=== PATIENT | female | born 1975 | race Caucasian/White ===

== ENCOUNTER 2016-10-10 09:34 | Inpatient (IN) | payer OTHER ==
[2016-10-10] VITALS (9 sets, daily range): BP systolic 108–125; BP diastolic 69–82; PULSE 67–91; TEMP 36.3–37; O2SAT 92–97; Ht 165.1 cm; Wt 91.8 kg
[~2016-10-10] VITALS: Ht 165.1 cm; Wt 91.8 kg
[~2016-10-10 09:34] MED LIST: ALBU1AER9 INH; CLIN300C2 PO; METO1TAB54 PO; RANI150T3 PO
[2016-10-10] MEDS ORDERED: SODIUM CHLORIDE 0.9% 1000ML 1,000 ML IV STA ×2 (09:45)
[2016-10-10] MEDS ORDERED: ONDANSETRON INJ 2 MG/ML 2 ML VIAL IV STA (09:45)
[2016-10-10] MEDS: MoRPHine SULFATE 4 MG/ML 1 ML CARP\\VIAL IV PRN ×6 (10:01→19:53)
[2016-10-10 10:05] LABS: BASO % 0.2 %; BASO ABS # 0.03 K/uL (0-0.2); COMPLETE YES; EOS % 2.2 %; HEMATOCRIT 42.1 % (37-47); IG% 0.2 %; LYMPH % 18.6 %; LYMPH ABS # 2.29 K/uL (1.2-3.4); MEAN CELL VOLUME 84.2 fL (80-100); MEAN CORPUSCULAR HEMOGLOBIN 29.2 pg (25-34); MEAN CORPUSCULAR HGB CONC 34.7 g/dl (32-36); MEAN PLATELET VOLUME 8.9 fL (7.4-10.4); MONO % 4.4 %; NEUT % 74.4 %; PLATELET COUNT 297 K/uL (130-400); WHITE BLOOD COUNT 12.28 K/uL (4.8-10.8)
[2016-10-10 10:07] LABS: URINE APPEARANCE CLOUDY (CLEAR); URINE COLOR DK YELLOW; URINE EPITHELIAL CELL AUTO >30 /lpf (0-5); URINE NITRITE NEG (NEG); URINE SPECIFIC GRAVITY 1.024 (1.000-1.030); UROBILINOGEN NEG (NEG)
[2016-10-10] MEDS ORDERED: TAMS0.4C38 PO (10:07)
[2016-10-10 10:16] LABS: MANUAL MICROSCOPIC REQUIRED? NO; REVIEW REQ? NO; URINE BILIRUBIN NEG (NEG)
[2016-10-10 10:30] LABS: BUN/CREATININE RATIO 17.4 (10-20); CALCIUM 8.8 mg/dl (8.5-10.1); CREATININE 0.63 mg/dl (0.60-1.20); POTASSIUM 3.5 mmol/L (3.5-5.1)
--- NOTE | 2016-10-10 10:43 | DIAGNOSTIC IMAGING REPORT ---
KUB CLINICAL HISTORY: Abdominal pain. Kidney stones. COMPARISON STUDY: None. FINDINGS: A 5 mm calcification inferior to the right sacroiliac joint could reflect a distal right ureteral calculus or phlebolith. A few additional pelvic calcifications could reflect distal ureteral calculi or phleboliths. No renal calculi are present. Bowel gas pattern is normal. IMPRESSION: 1. 5 mm calcification inferior to the right sacroiliac joint which could reflect a distal right ureteral calculus or phlebolith. 2. Several small additional pelvic calcifications. These likely reflect phleboliths although distal ureteral calculi could appear similar. Electronically signed by: Brad Lopez M.D. 10/10/2016 10:41 AM Dictated Date/Time: 10/10/2016 10:39 AM
--- NOTE | 2016-10-10 11:00 | DIAGNOSTIC IMAGING REPORT ---
ULTRASOUND KIDNEYS AND BLADDER CLINICAL HISTORY: Right flank pain. COMPARISON STUDY: KUB dated 10/10/2016. TECHNIQUE: Real-time, grayscale, and color flow sonography of the kidneys and bladder is performed. Images are reviewed in the transverse and longitudinal planes. FINDINGS: Kidneys: The kidneys are normal in size and echotexture. The right kidney measures 11.5 x 5.2 x 5.8 cm and the left kidney measures 12.5 x 5.1 x 4.8 cm. There is mild right-sided hydronephrosis. No hydronephrosis is seen on the left. No shadowing renal calculi are identified. There is no sonographic evidence of contour deforming renal mass lesion. No perinephric fluid is identified. Bladder: The bladder is decompressed and not well assessed. Ureteral jets could not be evaluated. IMPRESSION: 1. There is mild right hydronephrosis. This is likely related to an obstructing ureteral calculus which was suggested by x-ray. 2. There is no left-sided hydronephrosis. 3. The bladder was decompressed and not well evaluated. Electronically signed by: Azeem Cerda M.D. 10/10/2016 10:59 AM Dictated Date/Time: 10/10/2016 10:57 AM
[2016-10-10] MEDS ORDERED: TAMSULOSIN HCL 0.4 MG CAP PO ONE (12:02)
[2016-10-10] MEDS ORDERED: ALBINS INH (12:12)
[2016-10-10] MEDS ORDERED: ATRINS NEB (12:12)
[2016-10-10] MEDS ORDERED: NYST80OI TOP (12:12)
[2016-10-10] MEDS ORDERED: RANITIDINE HCL 150 MG TAB PO PRN (12:15)
[2016-10-10] MEDS ORDERED: METOCLOPRAMIDE HCL 5 MG TAB PO PRN (12:15)
[2016-10-10] MEDS ORDERED: ALBUTEROL HFA 8 GM INHALER INH PRN (12:15)
[2016-10-10] MEDS ORDERED: ONDANSETRON INJ 2 MG/ML 2 ML VIAL IV PRN ×2 (12:15→16:15)
[2016-10-10] MEDS ORDERED: ACETAMINOPHEN 325 MG TAB PO PRN (12:15)
[2016-10-10] MEDS ORDERED: ALBUTEROL 0.083% NEBU SOLN 3 ML VIAL INH PRN (12:15)
[2016-10-10] MEDS ORDERED: IPRATROPIUM BROMIDE NEB SOLN 0.02% 2.5 ML VIAL INH PRN (12:15)
[2016-10-10] MEDS ORDERED: TAMSULOSIN HCL 0.4 MG CAP ONE (12:32)
[2016-10-10] MEDS: SODIUM CHLORIDE 0.9% 1000ML 1,000 ML IV SCH ×2 (13:08→21:02)
--- NOTE | 2016-10-10 13:23 | EMERGENCY ROOM VISIT NOTE ---
History Report prepared by Donnie: Radha Dickens Under the Supervision of: Dr. Keshav Chan D.O. First contact with patient: 09:41 Chief Complaint: KIDNEY STONE Stated Complaint: KIDNEY STONES History of Present Illness The patient is a 41 year old female who presents to the Emergency Room with complaints of an acute exacerbation of pain to her right flank this morning. Currently, she rates her discomfort as a 10/10, which was not relieved after taking ibuprofen prior to arrival. Patient states that she recently visited [facility] on September 13 as she was having similar pain to her right flank and was diagnosed with two 3 mm stones in her right ureter via CT scan. Patient was placed on Flomax and was given a prescription for pain medication at that time. Patient was told that the stones should pass on their own and scheduled a follow up appointment with urology on November 21. Since returning home, the patient has had intermittent exacerbations of pain to right right flank which has been controlled with pain medication, however, she has not yet been able to pass the stones. Additionally, as her pain became worse today and was not relieved after taking medication, she came to the ED for further evaluation. Since the exacerbation of pain this morning, patient has not been able to find a comfortable position secondary to her discomfort. She has also felt nauseous but she has not yet vomited. Patient states that she has noticed intermittent movements of hematuria, but she denies dysuria or increased frequency of urination. She denies fevers, chills, headache, chest pain, shortness of breath , abdominal pain, diarrhea, vaginal discharge or swelling to her extremities. Patient has a history of hysterectomy 16 years ago. She is currently a smoker and drinks alcohol on occasion. Source of History: patient Onset: this morning Position: back (right flank) Symptom Intensity: 10/10 Timing: other (exacerbation) Modifying Factors (Relieving): other (No relief with ibuprofen) Associated Symptoms: + nausea, + urinary symptoms (intermittent hematuria), No SOB, No abdominal pain, No chest pain, No chills, No diarrhea, No fevers, No headache, No vomiting Review of Systems See HPI for pertinent positives & negatives. A total of 10 systems reviewed and were otherwise negative. Past Medical & Surgical Medical Problems: (1) Anxiety (2) Asthma, mild persistent (3) Depression (4) Fibromyalgia (5) GERD (gastroesophageal reflux disease) Surgical Problems: (1) H/O hand surgery (2) History of hysterectomy (3) History of tonsillectomy (4) History of tubal ligation Family History Diabetes mellitus FH: cancer FH: lung disease Hypertension Social History Smoking Status: Current Every Day Smoker Alcohol Use: occasionally Marital Status: in relationship Housing Status: lives with significant other Occupation Status: employed Current/Historical Medications Scheduled Tamsulosin Hcl (Flomax), 1 CAP PO HS Scheduled PRN Albuterol (Proair Hfa), 2 PUFFS INH Q4H PRN for Rescue/Asthma Symptoms Albuterol Sulf (Albuterol Sulfate), 1 VIAL INH QID PRN for SOB/Wheezing Ipratropium Basehor (Ipratropium Basehor), 1 VIAL NEB QID PRN for SOB/Wheezing Metoclopramide Hcl (Reglan), 5 MG PO ACHS PRN for Bloating Nystatin (Topical) (Nystatin), 1 APPLN TOP BID PRN for rash under breasts Ranitidine Hcl (Zantac), 150 MG PO BID PRN for Heartburn Allergies Coded Allergies: Acetaminophen (Verified Allergy, Intermediate, "rash all over, 10/10/16) Oxycodone (Verified Allergy, Intermediate, "rash all over, 10/10/16) Prednisone (Verified Allergy, Intermediate, "puffs up", 10/10/16) Fluticasone (Verified Allergy, Mild, swelling and rash, 04/28/16) Povidone Iodine (Verified Allergy, Mild, rash, 04/28/16) Salmeterol (Verified Allergy, Mild, swelling and rash, 04/28/16) Penicillins (Verified Allergy, Unknown, RASH, 10/10/16) Physical Exam Vital Signs Date Time Temp Pulse Resp B/P Pulse Ox O2 Delivery O2 Flow Rate FiO2 10/10/16 10:53 93 20 145/91 96 Room Air 10/10/16 09:36 36.5 98 20 142/80 100 Room Air Physical Exam GENERAL: Patient is awake and alert, very anxious and uncomfortable appearing. She appears to be in moderate pain. EYES: The conjunctivae are clear. The pupils are round and reactive. EARS, NOSE, MOUTH AND THROAT: The nose is without any evidence of any deformity. Mucous membranes are moist tongue is midline NECK: The neck is nontender and supple. RESPIRATORY: Normal respiratory effort is noted there is no evidence of wheezing rhonchi or rales CARDIOVASCULAR: Regular rate and rhythm noted there no murmurs rubs or gallops normal S1 normal S2 GASTROINTESTINAL: The abdomen is mildly distended but soft. Bowel sounds are present in all quadrants. Right upper quadrant tenderness to palpation but no guarding or rigidity. BACK: No midline tenderness appreciated. Right CVA tenderness to percussion. MUSCULOSKELETAL/EXTREMITIES: There is no evidence of gross deformity full range of motion is noted in the hips and shoulders SKIN: There is no obvious evidence of any rash. There are no petechiae, pallor or cyanosis noted. NEUROLOGIC: Patient is awake alert and oriented x3. Medical Decision & Procedures ER Provider Diagnostic Interpretation: US results as stated below per my review and radiologist interpretation. X-ray results as stated below per interpretation by me and the radiologist. ULTRASOUND KIDNEYS AND BLADDER CLINICAL HISTORY: Right flank pain. COMPARISON STUDY: KUB dated 10/10/2016. TECHNIQUE: Real-time, grayscale, and color flow sonography of the kidneys and bladder is performed. Images are reviewed in the transverse and longitudinal planes. FINDINGS: Kidneys: The kidneys are normal in size and echotexture. The right kidney measures 11.5 x 5.2 x 5.8 cm and the left kidney measures 12.5 x 5.1 x 4.8 cm. There is mild right-sided hydronephrosis. No hydronephrosis is seen on the left. No shadowing renal calculi are identified. There is no sonographic evidence of contour deforming renal mass lesion. No perinephric fluid is identified. Bladder: The bladder is decompressed and not well assessed. Ureteral jets could not be evaluated. IMPRESSION: 1. There is mild right hydronephrosis. This is likely related to an obstructing ureteral calculus which was suggested by x-ray. 2. There is no left-sided hydronephrosis. 3. The bladder was decompressed and not well evaluated. Electronically signed by: Azeem Cerda M.D. 10/10/2016 10:59 AM Dictated Date/Time: 10/10/2016 10:57 AM KUB CLINICAL HISTORY: Abdominal pain. Kidney stones. COMPARISON STUDY: None. FINDINGS: A 5 mm calcification inferior to the right sacroiliac joint could reflect a distal right ureteral calculus or phlebolith. A few additional pelvic calcifications could reflect distal ureteral calculi or phleboliths. No renal calculi are present. Bowel gas pattern is normal. IMPRESSION: 1. 5 mm calcification inferior to the right sacroiliac joint which could reflect a distal right ureteral calculus or phlebolith. 2. Several small additional pelvic calcifications. These likely reflect phleboliths although distal ureteral calculi could appear similar. Electronically signed by: Brad Lopez M.D. 10/10/2016 10:41 AM Dictated Date/Time: 10/10/2016 10:39 AM Laboratory Results 10/10/16 10:00 Red Blood Count 5.00, Mean Corpuscular Volume 84.2, Mean Corpuscular Hemoglobin 29.2, Mean Corpuscular Hemoglobin Concent 34.7, Mean Platelet Volume 8.9, Neutrophils (%) (Auto) 74.4, Lymphocytes (%) (Auto) 18.6, Monocytes (%) (Auto) 4.4, Eosinophils (%) (Auto) 2.2, Basophils (%) (Auto) 0.2, Neutrophils # (Auto) 9.12, Lymphocytes # (Auto) 2.29, Monocytes # (Auto) 0.54, Eosinophils # (Auto) 0.27, Basophils # (Auto) 0.03 10/10/16 10:00 Test 10/10/16 09:45 10/10/16 10:00 Urine Color DK YELLOW Urine Appearance CLOUDY (CLEAR) Urine pH 6.0 (4.5-7.5) Urine Specific [place] 1.024 (1.000-1.030) Urine Protein 1+ (NEG) Urine Glucose (UA) NEG (NEG) Urine Ketones 1+ (NEG) Urine Occult Blood 3+ (NEG) Urine Nitrite NEG (NEG) Urine Bilirubin NEG (NEG) Urine Urobilinogen NEG (NEG) Urine Leukocyte Esterase TRACE (NEG) Urine WBC (Auto) 5-10 /hpf (0-5) Urine RBC (Auto) >30 /hpf (0-4) Urine Hyaline Casts (Auto) 5-10 /lpf (0-5) Urine Epithelial Cells (Auto) >30 /lpf (0-5) Urine Bacteria (Auto) 1+ (NEG) White Blood Count 12.28 K/uL (4.8-10.8) Red Blood Count 5.00 M/uL (4.2-5.4) Hemoglobin 14.6 g/dL (12.0-16.0) Hematocrit 42.1 % (37-47) Mean Corpuscular Volume 84.2 fL (80-100) Mean Corpuscular Hemoglobin 29.2 pg (25-34) Mean Corpuscular Hemoglobin Concent 34.7 g/dl (32-36) Platelet Count 297 K/uL (130-400) Mean Platelet Volume 8.9 fL (7.4-10.4) Neutrophils (%) (Auto) 74.4 % Lymphocytes (%) (Auto) 18.6 % Monocytes (%) (Auto) 4.4 % Eosinophils (%) (Auto) 2.2 % Basophils (%) (Auto) 0.2 % Neutrophils # (Auto) 9.12 K/uL (1.4-6.5) Lymphocytes # (Auto) 2.29 K/uL (1.2-3.4) Monocytes # (Auto) 0.54 K/uL (0.11-0.59) Eosinophils # (Auto) 0.27 K/uL (0-0.5) Basophils # (Auto) 0.03 K/uL (0-0.2) RDW Standard Deviation 43.2 fL (36.4-46.3) RDW Coefficient of Variation 14.0 % (11.5-14.5) Immature Granulocyte % (Auto) 0.2 % Immature Granulocyte # (Auto) 0.03 K/uL (0.00-0.02) Anion Gap 11.0 mmol/L (3-11) Est Creatinine Clear Calc Drug Dose 131.6 ml/min Estimated GFR () 129.1 Estimated GFR (Non- 111.4 BUN/Creatinine Ratio 17.4 (10-20) Calcium Level 8.8 mg/dl (8.5-10.1) Total Bilirubin 0.5 mg/dl (0.2-1) Direct Bilirubin 0.1 mg/dl (0-0.2) Aspartate Amino Transf (AST/SGOT) 14 U/L (15-37) Alanine Aminotransferase (ALT/SGPT) 24 U/L (12-78) Alkaline Phosphatase 92 U/L (45-117) Total Protein 7.7 gm/dl (6.4-8.2) Albumin 3.8 gm/dl (3.4-5.0) Lipase 158 U/L (73-393) Laboratory results per my review. Medications Administered Medications (Trade) Dose Ordered Sig/Rui Route Start Time Stop Time Status Last Admin Dose Admin Sodium Chloride 1,000 ml @ 999 mls/hr Q1H1M STAT IV 10/10/16 09:45 10/10/16 10:45 DC 10/10/16 10:01 999 MLS/HR Sodium Chloride (Nss 1000ml) 1,000 ml @ 200 mls/hr Q5H STAT IV 10/10/16 09:45 10/10/16 13:06 DC 10/10/16 09:45 200 MLS/HR Morphine Sulfate (MoRPHine SULFATE INJ) 4 mg Q15M PRN IV 10/10/16 09:45 10/10/16 13:46 DC 10/10/16 12:21 4 MG Ondansetron HCl (Zofran Inj) 4 mg NOW STAT IV 10/10/16 09:45 10/10/16 09:48 DC 10/10/16 09:45 4 MG ED Course 0942: The patient was evaluated in room B8. A complete history and physical examination were performed. 0945: Zofran 4 mg IV, Morphine Sulfate 4 mg IV, NSS 1,000 ml @ 200 mls/hr IV and NSS bolus IV were ordered. 1100: Upon reevaluation, the patient appeared to be resting more comfortably. I updated her on the results of her radiology reports and lab tests. The urologist will be contacted. 1110: I discussed the patient's case with Dr. Dia of urology. She recommended admitting the patient to medicine and then she would evaluate the patient for possible stenting. The hospitalist will be contacted. 1130: After discussion with Fabiana Jacome PA-C, the patient will continue to be evaluated by the [facility] for further management. The patient verbalized her understanding and agreement with this treatment plan. Medical Decision Differential diagnosis: Etiologies such as renal colic, appendicitis, diverticulitis, mesenteric ischemia, aortic pathology, infections, inflammatory bowel disease, PUD, biliary pathology, UTI, as well as others were entertained. Nursing notes reviewed. The patient is a 41-year-old female who presented to the emergency department for an evaluation of flank pain. The patient was recently diagnosed with a kidney stone in the middle of August. The patient returns today because worsening pain. Her history and physical exam appeared to be consistent with renal colic. She was found have signs of hydronephrosis on ultrasound. I discussed her case with the on-call patient's primary urologist. Patient treated with IV fluids IV pain medicine IV antiemetics. On subsequent reevaluation she still had continued pain. This reason I discussed her case with the [facility]-call [facility]. They've agreed to evaluate the patient in the emergency apartment for further management and disposition. Consults Time Called: 1105 Consulting Physician: Dr. Dia - urology Returned Call: [phone] Discussed the patient's case. She recommended admitting the patient to medicine and then she would evaluate the patient for possible stenting. The hospitalist will be contacted. Additional Consults: Time Called: 1115 Consulted Physician: Fabiana Umaña Returned Call: [phone] Additional Comments: Discussed the patient's case. She will continue to be evaluated by the [facility] for further management. Impression Primary Impression: Renal colic Additional Impression: Intractable pain Scribe Attestation The scribe's documentation has been prepared under my direction and personally reviewed by me in its entirety. I confirm that the note above accurately reflects all work, treatment, procedures, and medical decision making performed by me. Departure Information Dispostion Being Evaluated By Hospitalist (Chasidy) Yfn Hong M.D. (PCP) Problem Qualifiers
--- NOTE | 2016-10-10 13:24 | History and Physical ---
History & Physical Date & Time of Service: Oct 10, 2016 at 12:13 Chief Complaint: Kidney Stones Primary Care Physician: Yfn Gonsales M.D. History of Present Illness Source: patient This is a 41 y/o female with PMHx of Asthma and other problems as outlined below who presents to the ED c/o worsening Right flank pain since this morning. Pt reports that one month ago she was seen at [facility] for similar sxs. She was diagnosed with 3mm stone in her R ureter via CT scan. She was discharged home to pass the stone with Flomax and PRN pain medications with urology f/u apt scheduled for Nov 21. Patient reports she has had intermittent R flank pain since she returned home that was relieved with pain medication. This morning she was at work when the pain got acutely worse. She describes the R flank pain as constant 10/10 stabbing pain that radiates to the R groin. She cannot find a comfortable position. Sxs are assoc with hematuria and nausea but no vomiting. Pt denies prior history of kidney stone. Pt denies fever/chills, diaphoresis, chest pain, palpitations, SOB, abd pain, constipation, diarrhea, LE edema ,calf pain, lightheadedness/dizziness. In the ED, BP is slightly elevated. Pt is afebrile with leukocytosis >12k. KUB + 5mm obstructing stone within distal R ureter with mild hydronephrosis on renal US. UA contaminated; will recollect via cath. Pt appears stable and will be admitted for further evaluation and treatment. Past Medical/Surgical History Medical Problems: (1) Anxiety Status: Chronic (2) Asthma, mild persistent Status: Chronic (3) Depression Status: Chronic (4) Fibromyalgia Status: Chronic (5) GERD (gastroesophageal reflux disease) Status: Chronic Surgical Problems: (1) H/O hand surgery Status: Resolved (2) History of hysterectomy Status: Resolved (3) History of tonsillectomy Status: Resolved (4) History of tubal ligation Status: Resolved Family History Diabetes mellitus FH: cancer FH: lung disease Hypertension Social History Smoking Status: Current Every Day Smoker (1 ppd x 15 years) Alcohol Use: occasionally Drug Use: none Marital Status: , in relationship Housing status: lives with family Occupational Status: employed Multi-Drug Resistant Organisms History of MDRO: No Allergies Coded Allergies: Acetaminophen (Verified Allergy, Intermediate, "rash all over, 10/10/16) Oxycodone (Verified Allergy, Intermediate, "rash all over, 10/10/16) Prednisone (Verified Allergy, Intermediate, "puffs up", 10/10/16) Fluticasone (Verified Allergy, Mild, swelling and rash, 04/28/16) Povidone Iodine (Verified Allergy, Mild, rash, 04/28/16) Salmeterol (Verified Allergy, Mild, swelling and rash, 04/28/16) Uncoded Allergies: PENICILLIN (Allergy, Mild, rash, 04/28/16) Home Medications Scheduled Tamsulosin Hcl (Flomax), 1 CAP PO HS Scheduled PRN Albuterol (Proair Hfa), 2 PUFFS INH Q4H PRN for Rescue/Asthma Symptoms Albuterol Sulf (Albuterol Sulfate), 1 VIAL INH QID PRN for SOB/Wheezing Ipratropium Corder (Ipratropium Corder), 1 VIAL NEB QID PRN for SOB/Wheezing Metoclopramide Hcl (Reglan), 5 MG PO ACHS PRN for Bloating Nystatin (Topical) (Nystatin), 1 APPLN TOP BID PRN for rash under breasts Ranitidine Hcl (Zantac), 150 MG PO BID PRN for Heartburn Review of Systems Constitutional: No chills, No fatigue, No fever, No sweats, No weakness Eyes: No worsening of vision ENT: No hearing loss Respiratory: No cough, No shortness of breath Cardiovascular: No chest pain, No claudication, No edema, No palpitations Abdomen: + nausea, + problem reported (R flank pain), No GI bleeding, No constipation, No diarrhea, No pain, No vomiting Genitourinary - Female: + hematuria, No dysuria Neurologic: No weakness Psychiatric: No depression symptoms Endocrine: No fatigue Integumentary: No new/changing skin lesions Physical Exam Vital Signs Date Time Temp Pulse Resp B/P Pulse Ox O2 Delivery O2 Flow Rate FiO2 10/10/16 10:53 93 20 145/91 96 Room Air 10/10/16 09:36 36.5 98 20 142/80 100 Room Air General Appearance: WD/WN, no apparent distress, + pertinent finding (Pt is sitting up in bed iwth significant other at bedside ) Head: normocephalic, atraumatic Eyes: normal inspection ENT: hearing grossly normal Neck: supple Respiratory/Chest: chest non-tender, lungs clear, normal breath sounds, no respiratory distress Cardiovascular: regular rate, rhythm, no edema, no murmur Abdomen/GI: normal bowel sounds, non tender, soft Back: + right CVA tenderness Extremities/Musculoskelatal: normal inspection, no calf tenderness, no pedal edema Neurologic/Psych: alert, normal mood/affect, oriented x 3 Skin: normal color, warm/dry Diagnostics Laboratory Results Results Past 24 Hours Test 10/10/16 09:45 10/10/16 10:00 Range/Units Urine Color DK YELLOW Urine Appearance CLOUDY CLEAR Urine pH 6.0 4.5-7.5 Urine Specific [place] 1.024 1.000-1.030 Urine Protein 1+ NEG Urine Glucose (UA) NEG NEG Urine Ketones 1+ NEG Urine Occult Blood 3+ NEG Urine Nitrite NEG NEG Urine Bilirubin NEG NEG Urine Urobilinogen NEG NEG Urine Leukocyte Esterase TRACE NEG Urine WBC (Auto) 5-10 0-5 /hpf Urine RBC (Auto) >30 0-4 /hpf Urine Hyaline Casts (Auto) 5-10 0-5 /lpf Urine Epithelial Cells (Auto) >30 0-5 /lpf Urine Bacteria (Auto) 1+ NEG White Blood Count 12.28 4.8-10.8 K/uL Red Blood Count 5.00 4.2-5.4 M/uL Hemoglobin 14.6 12.0-16.0 g/dL Hematocrit 42.1 37-47 % Mean Corpuscular Volume 84.2 80-100 fL Mean Corpuscular Hemoglobin 29.2 25-34 pg Mean Corpuscular Hemoglobin Concent 34.7 32-36 g/dl Platelet Count 297 130-400 K/uL Mean Platelet Volume 8.9 7.4-10.4 fL Neutrophils (%) (Auto) 74.4 % Lymphocytes (%) (Auto) 18.6 % Monocytes (%) (Auto) 4.4 % Eosinophils (%) (Auto) 2.2 % Basophils (%) (Auto) 0.2 % Neutrophils # (Auto) 9.12 1.4-6.5 K/uL Lymphocytes # (Auto) 2.29 1.2-3.4 K/uL Monocytes # (Auto) 0.54 0.11-0.59 K/uL Eosinophils # (Auto) 0.27 0-0.5 K/uL Basophils # (Auto) 0.03 0-0.2 K/uL RDW Standard Deviation 43.2 36.4-46.3 fL RDW Coefficient of Variation 14.0 11.5-14.5 % Immature Granulocyte % (Auto) 0.2 % Immature Granulocyte # (Auto) 0.03 0.00-0.02 K/uL Sodium Level 137 136-145 mmol/L Potassium Level 3.5 3.5-5.1 mmol/L Chloride Level 104 98-107 mmol/L Carbon Dioxide Level 22 21-32 mmol/L Anion Gap 11.0 3-11 mmol/L Blood Urea Nitrogen 11 7-18 mg/dl Creatinine 0.63 0.60-1.20 mg/dl Est Creatinine Clear Calc Drug Dose 131.6 ml/min Estimated GFR () 129.1 Estimated GFR (Non- 111.4 BUN/Creatinine Ratio 17.4 10-20 Random Glucose 103 70-99 mg/dl Calcium Level 8.8 8.5-10.1 mg/dl Total Bilirubin 0.5 0.2-1 mg/dl Direct Bilirubin 0.1 0-0.2 mg/dl Aspartate Amino Transf (AST/SGOT) 14 15-37 U/L Alanine Aminotransferase (ALT/SGPT) 24 12-78 U/L Alkaline Phosphatase 92 45-117 U/L Total Protein 7.7 6.4-8.2 gm/dl Albumin 3.8 3.4-5.0 gm/dl Lipase 158 73-393 U/L Diagnostic Radiology KUB IMPRESSION: 1. 5 mm calcification inferior to the right sacroiliac joint which could reflect a distal right ureteral calculus or phlebolith. 2. Several small additional pelvic calcifications. These likely reflect phleboliths although distal ureteral calculi could appear similar. RENAL US IMPRESSION: 1. There is mild right hydronephrosis. This is likely related to an obstructing ureteral calculus which was suggested by x-ray. 2. There is no left-sided hydronephrosis. 3. The bladder was decompressed and not well evaluated. Impression Assessment and Plan OBSTRUCTING DISTAL R URETERAL CALCULI pt presents with R flank pain assoc with nausea; no prior history of kidney stone -admit to med/surg -pt is afebrile with leukocytosis >12k -KUB + 5mm obstructing stone within distal R ureter with mild hydronephrosis on renal US -initial UA contaminated specimen; cath specimen yet to be collected -start IVF and Flomax -Morphine and Toradol PRN pain -NPO after midnight for possible stent tomorrow -strain urine -may start abx pending results of repeat UA -consult urology, Dr. Dia-possible stent tomorrow -pt does not appear septic -monitor MILD PERSISTENT ASTHMA -no evidence of acute exacerbation -cont home inhalers DEPRESSION/ANXIETY -stable -not currently on any medications GERD -cont Zantac DVT PROPHYLAXIS -Low VTE risk -SCDs and ambulation for now CODE STATUS -FULL CODE status DISPO -Pt seen in collaboration with Dr. Byers. Please see his addendum for further details. Thanks! ATTENDING NOTE Patient seen & examined at bedside. Reviewed the History/Physical and confirmed all the findings in person. Patient has known history of Right sided Renal stone since August 2016 and it has been gradually bothering her more. Symptoms got worst earlier in the day today which ahs brought her to the ED. She is being admitted to Medical Floor. Continue I/V Fluids and Pain management. Urology has bee involved in patient care. Patient is FULL CODE. DVT Prophylaxis with SCDs. Patient will be followed by Dr. Siddiqi. Lauri Byers MD Level of Care Med/Surg Resuscitation Status FULL RESUSCITATION VTE Prophylaxis VTE Risk Assessment Done? Y/N: Yes Risk Level: Low Given or contraindicated: SCD's
[2016-10-10] MEDS ORDERED: PROMETHAZINE HCL INJ 25 MG in SODIUM CHLORIDE 0.9% 50ML 50 ML IV PRN (13:30)
[2016-10-10] MEDS: KETOROLAC TROMETHAMINE 30 MG/ML VIAL IV PRN (14:02)
[2016-10-10] MEDS ORDERED: LIDOCAINE HCL 2% 2 ML VIAL (20MG/ML) ONE (16:00)
[2016-10-10] MEDS ORDERED: ONDANSETRON INJ 2 MG/ML 2 ML VIAL ONE (16:00)
[2016-10-10] MEDS ORDERED: DEXAMETHASONE SOD INJ 4 MG/ML VIAL ONE (16:00)
[2016-10-10] MEDS ORDERED: PROPOFOL IV EMULSION 10 MG/ML 20 ML VIAL IV ONE (16:00)
[2016-10-10] MEDS ORDERED: FENTANYL CITRATE INJ 50 MCG/1 ML 2 ML VIAL ONE (16:01)
[2016-10-10] MEDS ORDERED: MIDAZOLAM HCL 1 MG/ML 2ML VIAL ONE (16:01)
[2016-10-10] MEDS ORDERED: LACTATED RINGER'S 1000ML 1,000 ML IV PRN (16:08)
[2016-10-10] MEDS ORDERED: CEFAZOLIN IV 2,000 MG/60 ML D5W IV ONE (16:12)
[2016-10-10] MEDS ORDERED: FENTANYL CITRATE INJ 50 MCG/1 ML 2 ML VIAL IV PRN (16:15)
--- NOTE | 2016-10-10 16:23 | Urology Consultation ---
History General Date of Service: Oct 10, 2016. Chief Complaint: right renal colic Primary Care Physician: Yfn Gonsales M.D. Pt seen a urologist before?: No History of Present Illness I am asked by Sj Jacome to evaluate and treat patient for right renal colic. She was diagnosed with right stone 2015. She had a pain episode ddec [address] showed the stone in the upj with mild hydro. She had no pain for 2 weeks then this am she had return of severe pain. She had nausea and emesis. Her KUB shows stone now just below SI joint and u/s shows hydro right. Her pain is severe. Imaging Imaging: CT, KUB, Ultrasound Laboratory Results Past 24 Hours Test 10/10/16 09:45 10/10/16 10:00 Range/Units Urine Color DK YELLOW Urine Appearance CLOUDY CLEAR Urine pH 6.0 4.5-7.5 Urine Specific [place] 1.024 1.000-1.030 Urine Protein 1+ NEG Urine Glucose (UA) NEG NEG Urine Ketones 1+ NEG Urine Occult Blood 3+ NEG Urine Nitrite NEG NEG Urine Bilirubin NEG NEG Urine Urobilinogen NEG NEG Urine Leukocyte Esterase TRACE NEG Urine WBC (Auto) 5-10 0-5 /hpf Urine RBC (Auto) >30 0-4 /hpf Urine Hyaline Casts (Auto) 5-10 0-5 /lpf Urine Epithelial Cells (Auto) >30 0-5 /lpf Urine Bacteria (Auto) 1+ NEG White Blood Count 12.28 4.8-10.8 K/uL Red Blood Count 5.00 4.2-5.4 M/uL Hemoglobin 14.6 12.0-16.0 g/dL Hematocrit 42.1 37-47 % Mean Corpuscular Volume 84.2 80-100 fL Mean Corpuscular Hemoglobin 29.2 25-34 pg Mean Corpuscular Hemoglobin Concent 34.7 32-36 g/dl Platelet Count 297 130-400 K/uL Mean Platelet Volume 8.9 7.4-10.4 fL Neutrophils (%) (Auto) 74.4 % Lymphocytes (%) (Auto) 18.6 % Monocytes (%) (Auto) 4.4 % Eosinophils (%) (Auto) 2.2 % Basophils (%) (Auto) 0.2 % Neutrophils # (Auto) 9.12 1.4-6.5 K/uL Lymphocytes # (Auto) 2.29 1.2-3.4 K/uL Monocytes # (Auto) 0.54 0.11-0.59 K/uL Eosinophils # (Auto) 0.27 0-0.5 K/uL Basophils # (Auto) 0.03 0-0.2 K/uL RDW Standard Deviation 43.2 36.4-46.3 fL RDW Coefficient of Variation 14.0 11.5-14.5 % Immature Granulocyte % (Auto) 0.2 % Immature Granulocyte # (Auto) 0.03 0.00-0.02 K/uL Sodium Level 137 136-145 mmol/L Potassium Level 3.5 3.5-5.1 mmol/L Chloride Level 104 98-107 mmol/L Carbon Dioxide Level 22 21-32 mmol/L Anion Gap 11.0 3-11 mmol/L Blood Urea Nitrogen 11 7-18 mg/dl Creatinine 0.63 0.60-1.20 mg/dl Est Creatinine Clear Calc Drug Dose 131.6 ml/min Estimated GFR () 129.1 Estimated GFR (Non- 111.4 BUN/Creatinine Ratio 17.4 10-20 Random Glucose 103 70-99 mg/dl Calcium Level 8.8 8.5-10.1 mg/dl Total Bilirubin 0.5 0.2-1 mg/dl Direct Bilirubin 0.1 0-0.2 mg/dl Aspartate Amino Transf (AST/SGOT) 14 15-37 U/L Alanine Aminotransferase (ALT/SGPT) 24 12-78 U/L Alkaline Phosphatase 92 45-117 U/L Total Protein 7.7 6.4-8.2 gm/dl Albumin 3.8 3.4-5.0 gm/dl Lipase 158 73-393 U/L Labs were reviewed and are within normal limits unless listed below. Labs are available in the chart and at [facility] Problem List Medical Problems: (1) Abnormal ECG Status: Acute (2) Intractable pain Status: Acute (3) Renal colic Status: Acute (4) Right upper quadrant abdominal pain Status: Acute Past History anxiety, fibromyalgia, GERD Past Surgical History: tubal ligation Family History Diabetes mellitus FH: cancer FH: lung disease Hypertension Social History Hx Tobacco Use In Past Year?: No Smokin pack/day Alcohol: socially Marital status: , in relationship (engaged to be ) Housing status: lives with family Occupation status: employed History of MDRO No Allergies Coded Allergies: Acetaminophen (Verified Allergy, Intermediate, "rash all over, 10/10/16) Oxycodone (Verified Allergy, Intermediate, "rash all over, 10/10/16) Prednisone (Verified Allergy, Intermediate, "puffs up", 10/10/16) Fluticasone (Verified Allergy, Mild, swelling and rash, 04/28/16) Povidone Iodine (Verified Allergy, Mild, rash, 04/28/16) Salmeterol (Verified Allergy, Mild, swelling and rash, 04/28/16) Uncoded Allergies: PENICILLIN (Allergy, Mild, rash, 04/28/16) Medications Home Medications: Home Meds and Scripts Medications Dose Route/Sig Max Daily Dose Days Date Category Nystatin (Nystatin (Topical)) 100,000 Unit/Gm Oin 1 Appln TOP BID PRN 5 10/10/16 Reported Albuterol Sulfate (Albuterol Sulf) 2.5 Mg/3 Ml Nebu 1 Vial INH QID PRN 10/10/16 Reported Ipratropium [place] 0.5 Mg/2.5 Ml Nebu 1 Vial NEB QID PRN 30 10/10/16 Reported Flomax (Tamsulosin Hcl) 0.4 Mg Cap 1 Cap PO HS 30 10/10/16 Reported Proair Hfa (Albuterol) Aers 2 Puffs INH Q4H PRN 04/28/16 Reported Zantac (Ranitidine HCl) 150 Mg Tab 150 Mg PO BID PRN 04/28/16 Reported Reglan (Metoclopramide Hcl) 5 Mg Tab 5 Mg PO ACHS PRN 04/28/16 Reported Inpatient Medications: Current Inpatient Medications Medications (Trade) Dose Ordered Sig/Rui Route Start Time Stop Time Status Last Admin Dose Admin Acetaminophen (Tylenol Tab) 650 mg Q4H PRN PO 10/10/16 12:15 11/09/16 12:14 Ondansetron HCl (Zofran Inj) 4 mg Q6H PRN IV 10/10/16 12:15 11/09/16 12:14 Tamsulosin HCl 0.4 mg 0.4 mg QAM PO 10/11/16 09:00 11/10/16 08:59 Sodium Chloride (Nss 1000ml) 1,000 ml @ 125 mls/hr Q8H IV 10/10/16 13:30 11/09/16 12:14 10/10/16 13:08 125 MLS/HR Morphine Sulfate (MoRPHine SULFATE INJ) 4 mg Q3H PRN IV 10/10/16 12:15 10/24/16 12:14 10/10/16 15:46 4 MG Albuterol (Ventolin Hfa Inhaler) 2 puffs Q4H PRN INH 10/10/16 12:15 11/09/16 12:14 Albuterol Sulfate (Ventolin 0.083% 2.5MG/3ML Neb) 2.5 mg QID PRN INH 10/10/16 12:15 11/09/16 12:14 Ipratropium [place] (Atrovent 0.02% 0.5MG/2.5ML Neb) 0.5 mg QID PRN INH 10/10/16 12:15 11/09/16 12:14 Metoclopramide HCl (Reglan Tab) 5 mg ACHS PRN PO 10/10/16 12:15 11/09/16 12:14 Ranitidine HCl (zANTac TAB) 150 mg BID PRN PO 10/10/16 12:15 11/09/16 12:14 Ketorolac Tromethamine 30 mg 30 mg Q6H PRN IV 10/10/16 13:30 10/15/16 13:29 10/10/16 14:02 30 MG Promethazine HCl/ Sodium Chloride (Phenergan Inj/ Nss 50ml) 51 ml @ 204 mls/hr Q6H PRN IV 10/10/16 13:30 11/09/16 13:29 10/10/16 14:14 204 MLS/HR Fentanyl Citrate (Fentanyl Inj) 25 mcg Q5M PRN IV 10/10/16 16:15 10/11/16 16:14 UNV Ondansetron HCl 4 mg 4 mg ONE PRN IV 10/10/16 16:15 UNV Lactated Ringer's (Lr 1000ml) 1,000 ml @ 130 mls/hr Q7H42M PRN IV 10/10/16 16:08 10/11/16 16:07 UNV Review of Systems Review of Systems Constitutional: + frequent headaches, No chills Neurological: No dizzy, No passing out Gastrointestinal: + abdominal pain, + indigestion, + nausea, + vomiting, No constipation Cardiovascular: No chest pain, No palpitations Respiratory: + chronic cough, + shortness of breath Female : + frequent urination, + kidney stones, + painful urination Physical Exam Vital Signs: Vital Signs Past 12 Hours Date Time Temp Pulse Resp B/P Pulse Ox O2 Delivery O2 Flow Rate FiO2 10/10/16 14:49 36.5 67 16 118/74 97 Room Air 10/10/16 12:50 36.4 85 20 125/81 92 Room Air 10/10/16 12:50 36.4 85 20 125/81 92 Room Air 10/10/16 12:23 82 20 125/86 Room Air 10/10/16 12:13 90 20 120/85 97 Room Air 10/10/16 10:53 93 20 145/91 96 Room Air 10/10/16 09:36 36.5 98 20 142/80 100 Room Air Physical Exam: General Appearance: WD/WN, no apparent distress, + obese Eyes: bilateral eyes normal inspection ENT: hearing grossly normal Neck: no adenopathy Respiratory/Chest: no respiratory distress, no accessory muscle use Cardiovascular: regular rate, rhythm, no edema Extremities: non-tender, normal inspection, no pedal edema, no calf tenderness Neurologic/Psychiatric: alert, normal mood/affect, oriented x 3 Skin: normal color, warm/dry, no rash Lymphatic: no adenopathy Assessment & Plan Assessment & Plan right obstructing stone right colic plan right ureteroscopy laser litho basket stone extraction possible stent 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
[2016-10-10] MEDS ORDERED: CEFAZOLIN IV 2,000 MG/60 ML D5W IV SCH (16:30)
[2016-10-10] MEDS ORDERED: BELLADONNA/OPIUM SUPP 60 MG SUPP PR ONE (16:51)
[2016-10-10] MEDS ORDERED: BELLADONNA/OPIUM 60 MG SUPP PR ONE (17:00)
--- NOTE | 2016-10-10 17:08 | [facility] Operative Report ---
Operative Report Operative Date Oct 10, 2016. Pre-Operative Diagnosis right renal colic, obstructing ureteral stone Post-Operative Diagnosis same Procedure(s) Performed cysto right ureteroscopy laser lithotripsy basket stone extraction Surgeon jeyson [employer] Supervisor Surgeon(s) none Estimated Blood Loss 4mL Findings radio-opaque right distal ureteral stone Fluids 600mL Specimens right ureteral stone fragments Drains none Anesthesia LMA Complication(s) None Disposition Recovery Room / PACU Indications severe pain from a distal right ureteral stone with obstruction Description of Procedure Patient was given general lma anesthesia and placed in lithotomy position. Her genitals were prepped and draped in sterile fashion. Time out held with team. I placed a 21 fr rigid cystoscope to bladder. The urethra is unremarkable. The UOs are in normal location. I placed a stiff wire up right ureter but it cant get passed the stone in the distal ureter. I then switched to a road runner and passed wire to kidney. I then exchanged for stiff wire again via a 5 fr open ended catheter. There is brisk hydro drip once wire passed. I passed a dual lumen catheter over the stiff wire to calibrate just the intramural tunnel. I then placed a semirigid angled ureteroscope into the distal ureter. I lasered the stone into small pieces with a 270 micron holmium laser. I used a 2.2 fr tipless basket to remove all the pieces of stone from the ureter. Stone fragments were sent for analysis. The case was short ( under 20 minutes) and the stone was distal and ureter looks un-injured so I elected not to leave a stent There is brisk efflux from uo as I replaced the cystoscope to drain the bladder at end of case. I left bladder empty and concluded case. I placed a belladonna and opium suppository for post-op pain. She transferred to recovery under my escort, in stable condition. Plan: Home tomorrow am Pyridium for dysuria x 3 days flomax daily until pain free oral pain meds as needed ASA 2 clean contaminated case 10 seconds fluoro ancef antibiotic communication professor I attest to the content of the Intraoperative Record and any orders documented therein. Any exceptions are noted below.
[2016-10-10] MEDS ORDERED: PHENYLEPHRINE 100MCG/ML 5ML SYR ONE (17:17)
[2016-10-10] MEDS ORDERED: EpHEDrine SULFATE 50MG/5ML SYR ONE (17:17)
--- NOTE | 2016-10-10 17:24 | DIAGNOSTIC IMAGING REPORT ---
INTRAOPERATIVE SUPINE ABDOMEN SINGLE VIEW CLINICAL HISTORY: CYSTO, LASER, STENT stone removal COMPARISON STUDY: No previous studies for comparison. FINDINGS: 11 seconds of fluoroscopic time was utilized. A single intraoperative fluoroscopic spot images provided for interpretation. This reveals a right-sided ureteroscope and guidewire. Only the pelvis is included in the image. IMPRESSION: Intraoperative fluoroscopic spot image as described above. Electronically signed by: Claudio Andrade M.D. 10/10/2016 5:22 PM Dictated Date/Time: 10/10/2016 5:21 PM
--- NOTE | 2016-10-10 17:48 | Anesthesiology Progress Note ---
Anesthesia Post Op Note Date & Time Oct 10, 2016 at 17:48 Vital Signs Pain Intensity: 0 Vital Signs Past 12 Hours Date Time Temp Pulse Resp B/P Pulse Ox O2 Delivery O2 Flow Rate FiO2 10/10/16 17:40 81 14 103/70 98 Nasal Cannula 2 10/10/16 17:30 88 14 100/71 99 Mask 10 10/10/16 17:20 98 16 118/88 99 Mask 10 10/10/16 17:14 36.2 100 16 108/82 99 Mask 10 10/10/16 14:49 36.5 67 16 118/74 97 Room Air 10/10/16 12:50 36.4 85 20 125/81 92 Room Air 10/10/16 12:50 36.4 85 20 125/81 92 Room Air 10/10/16 12:23 82 20 125/86 Room Air 10/10/16 12:13 90 20 120/85 97 Room Air 10/10/16 10:53 93 20 145/91 96 Room Air 10/10/16 09:36 36.5 98 20 142/80 100 Room Air Notes Mental Status: alert / awake / arousable, participated in evaluation Pt Amnestic to Procedure: Yes Nausea / Vomiting: adequately controlled Pain: adequately controlled Airway Patency, RR, SpO2: stable & adequate BP & HR: stable & adequate Hydration State: stable & adequate Anesthetic Complications: no major complications apparent
[2016-10-11 03:33] VITALS: BP 112/67; PULSE 67; TEMP 36.7; O2SAT 96
[2016-10-11] MEDS: SODIUM CHLORIDE 0.9% 1000ML 1,000 ML IV SCH (05:00)
[2016-10-11 06:55] LABS: HEMATOCRIT 38.3 % (37-47); MEAN CELL VOLUME 86.1 fL (80-100); MEAN CORPUSCULAR HEMOGLOBIN 28.8 pg (25-34); MEAN CORPUSCULAR HGB CONC 33.4 g/dl (32-36); MEAN PLATELET VOLUME 9.3 fL (7.4-10.4); PLATELET COUNT 297 K/uL (130-400); RED BLOOD COUNT 4.45 M/uL (4.2-5.4); WHITE BLOOD COUNT 16.91 K/uL (4.8-10.8)
[2016-10-11 07:21] LABS: BUN/CREATININE RATIO 18.2 (10-20); CALCIUM 8.7 mg/dl (8.5-10.1); CREATININE 0.58 mg/dl (0.60-1.20); POTASSIUM 3.8 mmol/L (3.5-5.1)
[2016-10-11 07:53] VITALS: BP 119/78; PULSE 80; TEMP 36.8; O2SAT 97
--- NOTE | 2016-10-11 08:21 | Anesthesiology Progress Note ---
Anesthesia Post Op Note Date & Time Oct 11, 2016 at 08:20 Vital Signs Pain Intensity: 3.0 Vital Signs Past 12 Hours Date Time Temp Pulse Resp B/P Pulse Ox O2 Delivery O2 Flow Rate FiO2 10/11/16 07:53 36.8 80 18 119/78 97 Room Air 10/11/16 03:33 36.7 67 18 112/67 96 Room Air 10/10/16 23:45 37.0 89 18 108/69 95 Room Air 10/10/16 21:01 37.0 90 18 124/82 96 Room Air Notes Mental Status: alert / awake / arousable, participated in evaluation Pt Amnestic to Procedure: Yes Nausea / Vomiting: adequately controlled Pain: adequately controlled Airway Patency, RR, SpO2: stable & adequate BP & HR: stable & adequate Hydration State: stable & adequate Anesthetic Complications: no major complications apparent
[2016-10-11 08:22] VITALS: O2SAT 97
[2016-10-11] MEDS: KETOROLAC TROMETHAMINE 30 MG/ML VIAL IV PRN (08:49)
[2016-10-11] MEDS ORDERED: TAMSULOSIN HCL 0.4 MG CAP PO SCH (09:00)
--- NOTE | 2016-10-11 10:00 | Discharge Instructions ---
Discharge Instructions Admission Reason for Admission: Kidney Stone Discharge Discharge Diagnosis / Problem: Right ureteral stone Discharge Goals Goal(s): Decrease discomfort, Therapeutic intervention Activity Recommendations Activity Limitations: resume your previous activity . Instructions / Follow-Up Instructions / Follow-Up Please follow up with Family Medicine Dr. Gonsales on October 16 at 2:50pm. Your appointment on the has been canceled. Please follow up with Urology Dr. Dia on October 23 at 11:45am. Current Hospital Diet Hospital Diet(s): Regular Diet Discharge Diet Recommended Diet: Regular Diet Procedures Procedures Performed: Cystoscopy, right Ureteroscopy, Laser Lithotripsy, Basket Stone Extraction Pending Studies Studies pending at discharge: yes List of pending studies: Stone analysis Work Instructions Additional Instructions: Please excuse from work duties from 10/10 - 10/11 due to hospitalization. Medical Emergencies . Who to Call and When: Medical Emergencies: If at any time you feel your situation is an emergency, please call 911 immediately. . Non-Emergent Contact Non-Emergency issues call your: Primary Care Provider . . "Provider Documentation" section prepared by Coretta Katz. VTE Core Measure Inpt VTE Proph given/why not?: SCD's
[2016-10-11] MEDS ORDERED: PHEN-939 PO (10:03)
[2016-10-11] MEDS ORDERED: TAMS0.4C38 PO (10:03)
[2016-10-11 10:27] VITALS: BP 119/78; PULSE 80; TEMP 36.8; O2SAT 97
--- NOTE | 2016-10-11 19:49 | Discharge Summary ---
Discharge Summary Admission Date: Oct 10, 2016 at 12:07 Discharge Date: Oct 11, 2016 Discharge Disposition: Home Principal Diagnosis: Right ureteral stone Procedures: Cysto Right ureteroscopy Laser lithotripsy Basket stone extraction Consultations: Urology Pending Studies/Follow-Up: Stone analysis Medication Reconciliation New Medications: Phenazopyridine Hcl (Pyridium) 100 Mg Tab 1 TAB PO TID for 3 Days, #9 TAB Continued Medications: Albuterol (Proair Hfa) Aers 2 PUFFS INH Q4H PRN for Rescue/Asthma Symptoms Albuterol Sulf (Albuterol Sulfate) 2.5 Mg/3 Ml Nebu 1 VIAL INH QID PRN for SOB/Wheezing Ipratropium [place] (Ipratropium [place]) 0.5 Mg/2.5 Ml Nebu 1 VIAL NEB QID PRN for SOB/Wheezing for 30 Days, #300 ML 5 Refills Metoclopramide Hcl (Reglan) 5 Mg Tab 5 MG PO ACHS PRN for Bloating, TAB Nystatin (Topical) (Nystatin) 100,000 Unit/Gm Oin 1 APPLN TOP BID PRN for rash under breasts for 5 Days, #15 GM 1 Refill Ranitidine Hcl (Zantac) 150 Mg Tab 150 MG PO BID PRN for Heartburn, TAB Tamsulosin Hcl (Flomax) 0.4 Mg Cap 1 CAP PO HS for 7 Days, #7 CAP (This prescription has been renewed) Admission Information HPI (per Admitting provider): This is a 41 y/o female with PMHx of Asthma and other problems as outlined below who presents to the ED c/o worsening Right flank pain since this morning. Pt reports that one month ago she was seen at [facility] for similar sxs. She was diagnosed with 3mm stone in her R ureter via CT scan. She was discharged home to pass the stone with Flomax and PRN pain medications with urology f/u apt scheduled for Nov 21. Patient reports she has had intermittent R flank pain since she returned home that was relieved with pain medication. This morning she was at work when the pain got acutely worse. She describes the R flank pain as constant 10/10 stabbing pain that radiates to the R groin. She cannot find a comfortable position. Sxs are assoc with hematuria and nausea but no vomiting. Pt denies prior history of kidney stone. Pt denies fever/chills, diaphoresis, chest pain, palpitations, SOB, abd pain, constipation, diarrhea, LE edema ,calf pain, lightheadedness/dizziness. In the ED, BP is slightly elevated. Pt is afebrile with leukocytosis >12k. KUB + 5mm obstructing stone within distal R ureter with mild hydronephrosis on renal US. UA contaminated; will recollect via cath. Pt appears stable and will be admitted for further evaluation and treatment. Physical Exam (per Admitting): General Appearance: WD/WN, no apparent distress, + pertinent finding (Pt is sitting up in bed iwth significant other at bedside ) Head: normocephalic, atraumatic Eyes: normal inspection ENT: hearing grossly normal Neck: supple Respiratory/Chest: chest non-tender, lungs clear, normal breath sounds, no respiratory distress Cardiovascular: regular rate, rhythm, no edema, no murmur Abdomen/GI: normal bowel sounds, non tender, soft Back: + right CVA tenderness Extremities/Musculoskelatal: normal inspection, no calf tenderness, no pedal edema Neurologic/Psych: alert, normal mood/affect, oriented x 3 Skin: normal color, warm/dry Hospital Course Patient was admitted with obstructing right ureteral stone. Urology was consulted. Patient underwent laser lithotripsy with stone extraction. Patient tolerated procedure well without complication. Stone analysis pending at the time of discharge. Patient received IVF's. Patient was discharged on Flomax and Pyridium. Patient was continued on her home medications. Patient deemed stable for discharge with Family medicine and Urology follow up. Patient should have repeat CBC done at f/u appointment to ensure resolution of leukocytosis. PE on discharge: General- awake; alert; NAD Eyes- EOMI; no scleral icterus Neck- no stridor; trachea midline Lungs- CTA bilaterally; no wheezes/crackles Heart- RRR; no m/r/g Abdomen- soft; NTND; nBS Back- no CVA tenderness Extremities- no deformity; no c/c/e Neuro- no gross focal deficits Skin- no appreciable rash or bruise . Total time spent on discharge = This includes examination of the patient, discharge planning, medication reconciliation, and communication with other providers. Discharge Instructions Discharge Instructions Admission Reason for Admission: Kidney Stone Discharge Discharge Diagnosis / Problem: Right ureteral stone Discharge Goals Goal(s): Decrease discomfort, Therapeutic intervention Activity Recommendations Activity Limitations: resume your previous activity . Instructions / Follow-Up Instructions / Follow-Up Please follow up with Family Medicine Dr. Gonsales on October 16 at 2:50pm. Your appointment on the has been canceled. Please follow up with Urology Dr. Dia on October 23 at 11:45am. Current Hospital Diet Hospital Diet(s): Regular Diet Discharge Diet Recommended Diet: Regular Diet Procedures Procedures Performed: Cystoscopy, right Ureteroscopy, Laser Lithotripsy, Basket Stone Extraction Pending Studies Studies pending at discharge: yes List of pending studies: Stone analysis Work Instructions Additional Instructions: Please excuse from work duties from 10/10 - 10/11 due to hospitalization. Medical Emergencies . Who to Call and When: Medical Emergencies: If at any time you feel your situation is an emergency, please call 911 immediately. . Non-Emergent Contact Non-Emergency issues call your: Primary Care Provider . . "Provider Documentation" section prepared by Coretta Katz. VTE Core Measure Inpt VTE Proph given/why not?: SCD's Additional Copies To Yfn Gonsales M.D.
[2016-10-12] MEDS ORDERED: PHEN-876 PO (11:50)
[2016-10-12] MEDS ORDERED: HYDR-5688 PO (11:50)
== END 2016-10-11 11:30 | disposition home or self-care (01) | DRG 669 ==
LOC: ENRESERVDT → ENRESERVTM → C.EDB 09:35 → C.MSW 12:07
PROVIDERS: ADMIT Emergency Medicine; ATTEND Internal Medicine
PROC: 0TC68ZZ Extirpation of Matter from Right Ureter, Via Natural or Artificial Opening Endoscopic (ICD-10-PCS; principal; 2016-10-10 16:30)
DX: N20.1 Calculus of ureter (principal); N13.30 Unspecified hydronephrosis; F41.9 Anxiety disorder, unspecified; J45.30 Mild persistent asthma, uncomplicated; F32.9 Major depressive disorder, single episode, unspecified; M79.7 Fibromyalgia; K21.9 Gastro-esophageal reflux disease without esophagitis; F17.210 Nicotine dependence, cigarettes, uncomplicated

== ENCOUNTER 2016-10-12 09:33 | Emergency (ER) | payer OTHER ==
[~2016-10-12] VITALS: Ht 165.1 cm; Wt 93.8 kg
[~2016-10-12 09:33] MED LIST changes: +ALBINS INH; +ATRINS NEB; -CLIN300C2 PO; +NYST80OI TOP; +PHEN-939 PO; +TAMS0.4C38 PO
[2016-10-12 09:35] VITALS: TEMP 36.5; Ht 165.1 cm; Wt 93.8 kg
[2016-10-12] MEDS ORDERED: SODIUM CHLORIDE 0.9% 1000ML 500 ML IV STA (09:51)
[2016-10-12] MEDS ORDERED: ONDANSETRON INJ 2 MG/ML 2 ML VIAL IV STA (09:51)
[2016-10-12] MEDS ORDERED: KETOROLAC TROMETHAMINE 30 MG/ML VIAL IV STA (09:51)
[2016-10-12] MEDS ORDERED: SODIUM CHLORIDE 0.9% 1000ML 1,000 ML IV STA (09:51)
--- NOTE | 2016-10-12 09:57 | EMERGENCY ROOM VISIT NOTE ---
History Report prepared by Donnie: Jazzy Chun Under the Supervision of: Dr. Azeem Bashir M.D. First contact with patient: 09:42 Chief Complaint: FLANK PAIN Stated Complaint: HAVING TROUBLE URINATTING,PAIN,PRESSURE,KINDEY History of Present Illness The patient is a 41 year old female who presents to the Emergency Room with complaints of worsening right sided flank pain for the past day. She rates her discomfort as an 8/10, describes it as a "burning" sensation and states she has not taken any medication for her pain yet. She admits to some recent difficulty urinating and states "I have had to really push to get any urine out". She notes this morning she tried to go to work, but her pain worsened and she passed a "clump-like" blood clot, so she came here to the ED. The patient was admitted to the hospital here at [facility] from October 10-2016, for a 5 mm right ureteral stone. Dr. Yazmin Dia of [facility] did laser lithotripsy and basket stone extraction. She was placed on Flomax and Pyridium, which she has been taking, and was sent home yesterday. The patient admits to some nausea today, but has not vomited. When she is able to urinate, she experiences dysuria. She admits to the chills last night but has not had any fevers. 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 A total of 10 systems reviewed and were otherwise negative. Past Medical & Surgical Medical Problems: (1) Anxiety (2) Asthma, mild persistent (3) Depression (4) Fibromyalgia (5) GERD (gastroesophageal reflux disease) Surgical Problems: (1) H/O hand surgery (2) History of hysterectomy (3) History of tonsillectomy (4) History of tubal ligation Family History Diabetes mellitus FH: cancer FH: lung disease Hypertension Social History Smoking Status: Current Every Day Smoker Alcohol Use: occasionally Drug Use: none Marital Status: , in relationship Housing Status: lives with significant other Occupation Status: employed Current/Historical Medications Scheduled Phenazopyridine Hcl (Pyridium), 1 TAB PO TID Tamsulosin Hcl (Flomax), 1 CAP PO HS Scheduled PRN Albuterol (Proair Hfa), 2 PUFFS INH Q4H PRN for Rescue/Asthma Symptoms Albuterol Sulf (Albuterol Sulfate), 1 VIAL INH QID PRN for SOB/Wheezing Hydrocodone/Acetaminophen 5MG/325MG (Dewey 5MG/325MG), 1-2 TABLET PO Q6 PRN for Pain Ipratropium [place] (Ipratropium [place]), 1 VIAL NEB QID PRN for SOB/Wheezing Metoclopramide Hcl (Reglan), 5 MG PO ACHS PRN for Bloating Nystatin (Topical) (Nystatin), 1 APPLN TOP BID PRN for rash under breasts Phenazopyridine HCl (Pyridium), 200 MG PO TID PRN for Frequency/Burning w/ Urination Ranitidine Hcl (Zantac), 150 MG PO BID PRN for Heartburn Allergies Coded Allergies: Acetaminophen (Verified Allergy, Intermediate, "rash all over, 10/12/16) Oxycodone (Verified Allergy, Intermediate, "rash all over, 10/12/16) Prednisone (Verified Allergy, Intermediate, "puffs up", 10/12/16) Fluticasone (Verified Allergy, Mild, swelling and rash, 10/12/16) Povidone Iodine (Verified Allergy, Mild, rash, 10/12/16) Salmeterol (Verified Allergy, Mild, swelling and rash, 10/12/16) Penicillins (Verified Allergy, Unknown, RASH, 10/12/16) Physical Exam Vital Signs Date Time Temp Pulse Resp B/P Pulse Ox O2 Delivery O2 Flow Rate FiO2 10/12/16 11:45 84 18 132/73 98 Room Air 10/12/16 09:35 36.5 98 18 164/97 94 Room Air Physical Exam GENERAL: Patient is in no acute distress. HEENT: No acute trauma, normocephalic atraumatic, mucous membranes moist, no nasal congestion, no scleral icterus. NECK: No stridor, no adenopathy, no meningismus, trachea is midline. LUNGS: Clear to auscultation bilaterally, no wheeze, no rhonchi, breath sounds equal. HEART: Without murmurs gallops or rubs, regular rate and rhythm. ABDOMEN: Soft, nontender, bowel sounds positive, no hernias, no peritonitis. BACK: Right flank discomfort with percussion. EXTREMITIES: No cyanosis or edema, full range of motion of all the joints without pain or difficulty, no signs for acute trauma. NEUROLOGIC: Oriented x 3, no acute motor or sensory deficits, no focal weakness. SKIN: No rash, no jaundice, no diaphoresis. Medical Decision & Procedures ER Provider Diagnostic Interpretation: This X-Ray was reviewed and interpreted by myself and the radiologist. KUB IMPRESSION: 1. No evidence of pathologic bowel dilatation 2. Possible hepatomegaly 3. Stable nonspecific right pelvic basin calcifications. Electronically signed by: Claudio Andrade M.D. 10/12/2016 11:13 AM This Ultrasound was reviewed and interpreted by the radiologist and reviewed by myself. EXAMINATION: RENAL ULTRASOUND IMPRESSION : 1. Mild prominence of the right renal collecting system, less pronounced than on the prior October 10, 2016 study. 2. Bilateral ureteral jets were visualized Electronically signed by: Claudio Andrade M.D. 10/12/2016 11:08 AM Laboratory Results 10/12/16 10:10 Red Blood Count 4.81, Mean Corpuscular Volume 86.7, Mean Corpuscular Hemoglobin 28.9, Mean Corpuscular Hemoglobin Concent 33.3, Mean Platelet Volume 9.5, Neutrophils (%) (Auto) 67.9, Lymphocytes (%) (Auto) 23.1, Monocytes (%) (Auto) 6.7, Eosinophils (%) (Auto) 1.8, Basophils (%) (Auto) 0.2, Neutrophils # (Auto) 10.29, Lymphocytes # (Auto) 3.50, Monocytes # (Auto) 1.01, Eosinophils # (Auto) 0.27, Basophils # (Auto) 0.03 10/12/16 10:10 Test 10/12/16 10:10 White Blood Count 15.15 K/uL (4.8-10.8) Red Blood Count 4.81 M/uL (4.2-5.4) Hemoglobin 13.9 g/dL (12.0-16.0) Hematocrit 41.7 % (37-47) Mean Corpuscular Volume 86.7 fL (80-100) Mean Corpuscular Hemoglobin 28.9 pg (25-34) Mean Corpuscular Hemoglobin Concent 33.3 g/dl (32-36) Platelet Count 326 K/uL (130-400) Mean Platelet Volume 9.5 fL (7.4-10.4) Neutrophils (%) (Auto) 67.9 % Lymphocytes (%) (Auto) 23.1 % Monocytes (%) (Auto) 6.7 % Eosinophils (%) (Auto) 1.8 % Basophils (%) (Auto) 0.2 % Neutrophils # (Auto) 10.29 K/uL (1.4-6.5) Lymphocytes # (Auto) 3.50 K/uL (1.2-3.4) Monocytes # (Auto) 1.01 K/uL (0.11-0.59) Eosinophils # (Auto) 0.27 K/uL (0-0.5) Basophils # (Auto) 0.03 K/uL (0-0.2) RDW Standard Deviation 45.4 fL (36.4-46.3) RDW Coefficient of Variation 14.3 % (11.5-14.5) Immature Granulocyte % (Auto) 0.3 % Immature Granulocyte # (Auto) 0.05 K/uL (0.00-0.02) Urine Color DK YELLOW Urine Appearance CLEAR (CLEAR) Urine pH 7.0 (4.5-7.5) Urine Specific [place] 1.000 (1.000-1.030) Urine Protein NEG (NEG) Urine Glucose (UA) NEG (NEG) Urine Ketones NEG (NEG) Urine Occult Blood 1+ (NEG) Urine Nitrite POS (NEG) Urine Bilirubin NEG (NEG) Urine Urobilinogen NEG (NEG) Urine Leukocyte Esterase TRACE (NEG) Urine WBC (Auto) 1-5 /hpf (0-5) Urine RBC (Auto) 0-4 /hpf (0-4) Urine Hyaline Casts (Auto) 0 /lpf (0-5) Urine Epithelial Cells (Auto) 5-10 /lpf (0-5) Urine Bacteria (Auto) NEG (NEG) Anion Gap 9.0 mmol/L (3-11) Est Creatinine Clear Calc Drug Dose 144.5 ml/min Estimated GFR () 132.7 Estimated GFR (Non- 114.5 BUN/Creatinine Ratio 15.0 (10-20) Calcium Level 8.6 mg/dl (8.5-10.1) Laboratory results reviewed by me. Medications Administered Medications (Trade) Dose Ordered Sig/Rui Route Start Time Stop Time Status Last Admin Dose Admin Sodium Chloride (Nss 1000ml) 500 ml @ 999 mls/hr Q31M STAT IV 10/12/16 09:51 10/12/16 10:21 DC 10/12/16 10:27 999 MLS/HR Ondansetron HCl 4 mg 4 mg NOW STAT IV 10/12/16 09:51 10/12/16 09:54 DC 10/12/16 10:27 4 MG Sodium Chloride (Nss 1000ml) 1,000 ml @ 200 mls/hr Q5H STAT IV 10/12/16 09:51 10/12/16 12:24 DC 10/12/16 09:51 200 MLS/HR Morphine Sulfate (MoRPHine SULFATE INJ) 4 mg Q15M PRN IV 10/12/16 10:00 10/12/16 12:24 DC 10/12/16 10:28 4 MG Ketorolac Tromethamine (Toradol Inj) 30 mg NOW STAT IV 10/12/16 09:51 10/12/16 09:54 DC 10/12/16 10:28 30 MG ED Course 0947: The patient was evaluated in room B6. A complete history and physical exam was performed. 0951: Toradol 30 mg IV, NSS 1000 ml @ 200 mls/hr IV, Zofran 4 mg IV, NSS 500 ml @ 999 mls/hr IV. 1000: Morphine Sulfate 4 mg IV. 1135: I discussed the patient's case with Dr. Dia, [facility]. She does not recommend antibiotics right now and feels the patient can go home. We will try to control the patients pain as an outpatient. 1140: I reevaluated the patient. She is feeling much better. I discussed her results and discharge instructions and she verbalized complete understanding and agreement. Medical Decision The Differential Diagnoses considered include: Ureteral edema, ureteral obstruction, retained ureteral stone, UTI or pyelonephritis, renal failure, urinary retention, electrolyte imbalance and renal hematoma. There is a moderate leukocytosis, the white count though is improved compared to her recent testing. No anemia. No significant electrolyte abnormality or kidney failure. Urinalysis does not show infection. I suspect the positive nitrites are from the Pyridium she is using. No significant white blood cell count elevation in the urine to suggest infection. Renal ultrasound shows some right-sided hydronephrosis although it is improved compared to previous testing. Bilateral ureteral jets were seen. KUB does not show any obvious stone. The KUB film looks similar to previous films performed. Bladder scan did not show any significant urinary retention. The patient received IV saline, IV Toradol, IV morphine and IV Zofran. She feels improved. I spoke to Dr. Dia of urology. The patient is being discharged. The patient is being prescribed Dewey for pain, hydration, rest were encouraged. If she has a fever, if things are worsening, she should return. She is likely having ureteral spasm from her recent stone extraction. [place] Drug Monitoring Program Search Results: no issues identified (No records found for the patient) Consults Time Called: 6107 Consulting Physician: [facility] Returned Call: [phone] I discussed the patient's case with [facility]. She does not recommend antibiotics right now and feels the patient can go home. We will try to control the patients pain as an outpatient. Impression Primary Impression: Renal colic Additional Impression: Status post cystoscopy Scribe Attestation The scribe's documentation has been prepared under my direction and personally reviewed by me in its entirety. I confirm that the note above accurately reflects all work, treatment, procedures, and medical decision making performed by me. Departure Information Dispostion Home / Self-Care Prescriptions Hydrocodone/Acetaminophen 5MG/325MG ([place]wey 5MG/325MG) Tab 1-2 TABLET PO Q6 Y for Pain, #15 TAB Prov: Azeem Bashir M.D. 10/12/16 Phenazopyridine HCl (Pyridium) 200 Mg Tab 200 MG PO TID Y for Frequency/Burning w/Urination, #9 TAB Prov: Azeem Bashir M.D. 10/12/16 Referrals Yfn Gonsales M.D. (PCP) Patient Instructions My [facility] Additional Instructions motrin 600 mg 3x per day for 5 days fluids rest strain all the urine for stones norco 1-2 tab every 4 hours for pain use otc senokot 1-2 tab 2x per day to prevent constipation return for fever, vomiting or uncontrolled pain continue the flomax and pyridium Problem Qualifiers
[2016-10-12] MEDS ORDERED: MoRPHine SULFATE 4 MG/ML 1 ML CARP\\VIAL IV PRN (10:00)
[2016-10-12 10:33] LABS: BASO % 0.2 %; BASO ABS # 0.03 K/uL (0-0.2); COMPLETE YES; EOS % 1.8 %; HEMATOCRIT 41.7 % (37-47); IG% 0.3 %; LYMPH % 23.1 %; MEAN CELL VOLUME 86.7 fL (80-100); MEAN CORPUSCULAR HEMOGLOBIN 28.9 pg (25-34); MEAN CORPUSCULAR HGB CONC 33.3 g/dl (32-36); MEAN PLATELET VOLUME 9.5 fL (7.4-10.4); MONO % 6.7 %; NEUT % 67.9 %; PLATELET COUNT 326 K/uL (130-400); RED BLOOD COUNT 4.81 M/uL (4.2-5.4); WHITE BLOOD COUNT 15.15 K/uL (4.8-10.8)
[2016-10-12 10:51] LABS: CALCIUM 8.6 mg/dl (8.5-10.1); CREATININE 0.58 mg/dl (0.60-1.20); POTASSIUM 3.3 mmol/L (3.5-5.1)
--- NOTE | 2016-10-12 11:10 | DIAGNOSTIC IMAGING REPORT ---
EXAMINATION: RENAL ULTRASOUND CLINICAL HISTORY: FLANK PAIN COMPARISON STUDY: 10/10/2016 FINDINGS: The right kidney measures 11.2 cm. The left kidney measures 11.7 cm. There is mild dilatation of the right renal collecting system, less pronounced than on the prior study. There is no left-sided hydronephrosis. There are no renal masses. No bladder abnormalities are visualized. Bilateral ureteral jets were visualized. IMPRESSION : 1. Mild prominence of the right renal collecting system, less pronounced than on the prior October 10, 2016 study. 2. Bilateral ureteral jets were visualized Electronically signed by: Claudio Andrade M.D. 10/12/2016 11:08 AM Dictated Date/Time: 10/12/2016 11:06 AM
[2016-10-12 11:14] LABS: MANUAL MICROSCOPIC REQUIRED? NO; REVIEW REQ? NO; URINE APPEARANCE CLEAR (CLEAR); URINE BILIRUBIN NEG (NEG); URINE COLOR DK YELLOW; URINE NITRITE POS (NEG); UROBILINOGEN NEG (NEG); ZZUR CULT IF INDIC CLEAN CATCH NO
--- NOTE | 2016-10-12 11:15 | DIAGNOSTIC IMAGING REPORT ---
KUB CLINICAL HISTORY: Right flank pain COMPARISON STUDY: 10/10/2016 FINDINGS: Right pelvic basin calcifications remain in similar orientation to the preceding study. There is a doughnut shaped opacity within the left pelvis, possibly representing a tubal ligation clip. There is no pathologic bowel dilatation. The liver remains prominent. There is no pathologic bowel dilatation. IMPRESSION: 1. No evidence of pathologic bowel dilatation 2. Possible hepatomegaly 3. Stable nonspecific right pelvic basin calcifications. Electronically signed by: Claudio Andrade M.D. 10/12/2016 11:13 AM Dictated Date/Time: 10/12/2016 11:09 AM
[2016-10-12 11:45] VITALS: BP 132/73; PULSE 84; O2SAT 98
[2016-10-12] MEDS ORDERED: PHEN-876 PO (11:50)
[2016-10-12] MEDS ORDERED: HYDR-5688 PO (11:50)
== END 2016-10-12 12:00 | disposition home or self-care (01) ==
LOC: C.EDB 09:35
DX: N23 Unspecified renal colic (principal); R11.0 Nausea; K21.9 Gastro-esophageal reflux disease without esophagitis; J45.909 Unspecified asthma, uncomplicated

== ENCOUNTER 2020-07-19 14:55 | Inpatient (IN) ==
[2020-07-19] MEDS ORDERED: SODIUM CHLORIDE 0.9% 1000ML 1,000 ML IV ONE (16:18)
[2020-07-19] MEDS ORDERED: MoRPHine SULFATE 4 MG/ML 1 ML CARP\\VIAL IV STA ×2 (16:18→20:38)
[2020-07-19] MEDS ORDERED: ONDANSETRON INJ 2 MG/ML 2 ML VIAL IV STA (16:18)
--- NOTE | 2020-07-19 16:23 | Emergency Department Note ---
Impression & Plan Renal colic, Failure of outpatient treatment, Leukocytosis, Hydronephrosis ED Provider Note NAME: DEBBIE SHRESTHA AGE: 45 SEX: F : 1975 ARRIVES VIA: Walk-In INFORMANT: [Patient] ED PROVIDER(S): [Azeem Bashir MD] CHIEF COMPLAINT: Kidney stone HISTORY OF PRESENT ILLNESS: The patient is a 45-year-old female who was at the [facility] 9 days ago and diagnosed with a 6 mm right proximal ureteral stone. She was given Toradol and Macrobid. The patient has had continued pain and she has not passed the stone. In the last 2 days, she has had increased pain and pressure and some bloody urine. She contacted urology today, she was referred to the ED. She has had p revious ureteral stones that have required intervention. There has been no fever, chills, cough or congestion. She has not had vomiting or diarrhea. She currently has pain that is around a 6 on a scale of 1-10. The pain is primarily in the right lower quadrant/pelvis, no flank pain presently. REVIEW OF SYSTEMS: See HPI for pertinent positives and negatives. A total of ten systems were reviewed and were otherwise negative. PMHx/PSHx: See Below SOCIAL HISTORY: See Below. PHYSICAL EXAM: GENERAL: Patient is in no acute distress. HEENT: No acute trauma, normocephalic atraumatic, mucous membranes moist, no nasal congestion, no scleral icterus. NECK: No stridor, no adenopathy, no meningismus, trachea is midline. LUNGS: Clear to auscultation bilaterally, no wheeze, no rhonchi, breath sounds equal. HEART: Without murmurs gallops or rubs, regular rate and rhythm. ABDOMEN: Soft, nontender, bowel sounds positive, no hernias, no peritonitis. EXTREMITIES: No cyanosis or edema, full range of motion of all the joints without pain or difficulty, no signs for acute trauma. NEUROLOGIC: Oriented x 3, no acute motor or sensory deficits, no focal weakness. SKIN: No rash, no jaundice, no diaphoresis. Back: No flank discomfort to percussion. DIFFERENTIAL DIAGNOSIS: Renal colic, UTI, appendicitis, diverticulitis, mesenteric ischemia, failed outpatient treatment, aortic pathology, infections, inflammatory bowel disease, PUD, biliary pathology, as well as other pathologies. EMERGENCY DEPARTMENT COURSE/PROCEDURES: MEDICAL DECISION MAKING: There is a significant leukocytosis at 25,000. This white count elevation could be consistent with infection and or pain. There is a normal platelet count. No anemia. No significant electrolyte abnormality or kidney failure. Urinalysis shows hematuria, no obvious infection. Renal ultrasound shows a proximal right ureteral stone with hydronephrosis. KUB did not demonstrate any obvious ureteral stone. On exam, the patient was not toxic or febrile. The patient received IV saline, IV morphine and IV Zofran. She was given IV ceftriaxone as antibiotic coverage. I did speak with urology. The patient is being hospitalized. She will likely require urologic intervention tomorrow. The patient has failed outpatient treatment for her renal stone. She now has a marked leukocytosis. Hospitalization is indicated. Past Med/Surg History Medical History Fibromyalgia Renal colic Social History Smoking Status: Current every day smoker Cigarettes Per Day: 8; Second Hand Exposure: No; Do You Dip or Chew Tobacco: No; Tobacco Cessation Education Requested by Patient: No Hx Alcohol Use: No Hx Substance Use: No Preferred Language: Turkish Communication Ability: Effective Beliefs That Will Affect Care: None Current Living Situation: Spouse Other Information That Helps Us Care for You: No Feels Safe at Home: Yes Safety Concerns: Feels Safe At This Time Assistive Devices: None Assistive Devices Comment: doesn't wear cpap Allergies Allergies Allergy/AdvReac Type Severity Reaction Status Date / Time budesonide [From Symbicort] Allergy Intermediate Rash Verified 07/19/20 17:47 formoterol [From Symbicort] Allergy Intermediate Rash Verified 07/19/20 17:47 oxycodone Allergy Intermediate "rash all Verified 07/19/20 17:47 over salmeterol Allergy Intermediate Rash Verified 07/19/20 17:47 [From Advair Diskus] fluticasone Allergy Mild swelling Verified 07/19/20 17:47 and rash Penicillins Allergy Mild RASH Verified 07/19/20 17:47 povidone-iodine Allergy Mild rash Verified 07/19/20 17:47 Home Meds Home Medications Medication Instructions Recorded Confirmed albuterol sulfate 2.5 mg INHALATION QID PRN 07/19/20 07/19/20 albuterol sulfate [ProAir HFA] 2 puff INHALATION Q4H PRN 07/19/20 07/19/20 ipratropium bromide 2.5 ml INHALATION QID PRN 07/19/20 07/19/20 montelukast [Singulair] 10 mg PO HS 07/19/20 07/19/20 pantoprazole [Protonix] 40 mg PO HS 07/19/20 07/19/20 prednisone 0 mg PO DIRECTED 07/19/20 07/19/20 Results & Data (ED) Vital Signs Vital Signs - 24 hr 07/19/20 15:02 07/19/20 16:56 07/19/20 17:59 Temperature 36.4 C L Temperature Source Oral Pulse Rate 84 Pulse Rate [Finger] 76 71 Pulse Rhythm [Finger] Regular Pulse Strength [Finger] Normal Respiratory Rate 20 16 18 Respiratory Effort / Characteristics Non-Labored Spontaneous Non-Labored Spontaneous Respiratory Depth Normal Normal Respiratory Pattern Regular Blood Pressure 133/79 Blood Pressure [Right Arm] 112/74 127/72 Blood Pressure Mean 97 Blood Pressure Mean [Right Arm] 86 90 Blood Pressure Position Sitting Blood Pressure Position [Right Arm] Semi-fowlers Pulse Oximetry 97 96 98 Oxygen Delivery Method Room Air Room Air Sepsis Recent Fever Within 48 Hours No Sepsis New/Unexplained Change in Mental Status No Sepsis Action Taken by Nursing No Action Required 07/19/20 20:00 Temperature Temperature Source Pulse Rate Pulse Rate [Finger] 71 Pulse Rhythm [Finger] Regular Pulse Strength [Finger] Normal Respiratory Rate 18 Respiratory Effort / Characteristics Non-Labored Spontaneous Respiratory Depth Normal Respiratory Pattern Regular Blood Pressure Blood Pressure [Right Arm] 127/72 Blood Pressure Mean Blood Pressure Mean [Right Arm] 90 Blood Pressure Position Blood Pressure Position [Right Arm] Lying Pulse Oximetry 98 Oxygen Delivery Method Room Air Sepsis Recent Fever Within 48 Hours Sepsis New/Unexplained Change in Mental Status Sepsis Action Taken by Shelter Medications Current Medication List: was personally reviewed by me Laboratory Data Attestation: I reviewed the patient's lab results. Result diagrams: 07/19/20 16:10 07/19/20 16:10 Lab Results 07/19/20 07/19/20 07/19/20 Range/Units 16:10 16:10 16:10 WBC 25.66 H (4.8-10.8) K/uL RBC 4.96 (4.2-5.4) M/uL Hgb 13.7 (12.0-16.0) g/dL Hct 43.5 (37-47) % MCV 87.7 (80-100) fL MCH 27.6 (25-34) pg MCHC 31.5 L (32-36) g/dL RDW Std Deviation 47.8 H (36.4-46.3) fL RDW Coeff of Satnam 15.0 H (11.5-14.5) % Plt Count 397 (130-400) K/uL MPV 9.4 (7.4-10.4) fL Immature Gran % (Auto) 2.4 % Neut % (Auto) 79.6 % Lymph % (Auto) 12.4 % Ocean % (Auto) 4.9 % Eos % (Auto) 0.6 % Baso % (Auto) 0.1 % Neut # (Auto) 20.45 H (1.4-6.5) K/uL Lymph # (Auto) 3.17 (1.2-3.4) K/uL [place] # (Auto) 1.25 H (0.11-0.59) K/uL Eos # (Auto) 0.15 (0-0.5) K/uL Baso # (Auto) 0.02 (0-0.2) K/uL Immature Gran # (Auto) 0.62 H (0.00-0.02) K/uL Sodium 137 (136-145) mmol/L Potassium 4.0 (3.5-5.1) mmol/L Chloride 105 (98-107) mmol/L Carbon Dioxide 27 (21-32) mmol/L Anion Gap 5.0 (3-11) BUN 15 (7-18) mg/dl Creatinine 0.74 (0.6-1.2) mg/dl Est Cr Clr Drug Dosing 107.1 ml/min Est GFR ( Amer) 113.4 Est GFR (Non-Af Amer) 97.8 BUN/Creatinine Ratio 20.7 H (10-20) Glucose 98 (70-99) mg/dl Calcium 9.2 (8.5-10.1) mg/dl Magnesium (1.8-2.4) mg/dl HCG, Qual Negative (Negative) Urine Color Urine Appearance (Clear) Urine pH (4.5-7.5) Ur Specific [place] (1.000-1.030) Urine Protein (Negative) Urine Glucose (UA) (Negative) Urine Ketones (Negative) Urine Blood (Negative) Urine Nitrite (Negative) Urine Bilirubin (Negative) Urine Urobilinogen (Negative) Ur Leukocyte Esterase (Negative) Urine WBC (Auto) (0-5) /hpf Urine RBC (Auto) (0-4) /hpf U Hyaline Cast (Auto) (0-5) /lpf U Epithel Cells (Auto) (0-5) /lpf Urine Bacteria (Auto) (Negative) 07/19/20 07/19/20 Range/Units 16:10 16:50 WBC (4.8-10.8) K/uL RBC (4.2-5.4) M/uL Hgb (12.0-16.0) g/dL Hct (37-47) % MCV (80-100) fL MCH (25-34) pg MCHC (32-36) g/dL RDW Std Deviation (36.4-46.3) fL RDW Coeff of Satnam (11.5-14.5) % Plt Count (130-400) K/uL MPV (7.4-10.4) fL Immature Gran % (Auto) % Neut % (Auto) % Lymph % (Auto) % [place] % (Auto) % Eos % (Auto) % Baso % (Auto) % Neut # (Auto) (1.4-6.5) K/uL Lymph # (Auto) (1.2-3.4) K/uL [place] # (Auto) (0.11-0.59) K/uL Eos # (Auto) (0-0.5) K/uL Baso # (Auto) (0-0.2) K/uL Immature Gran # (Auto) (0.00-0.02) K/uL Sodium (136-145) mmol/L Potassium (3.5-5.1) mmol/L Chloride (98-107) mmol/L Carbon Dioxide (21-32) mmol/L Anion Gap (3-11) BUN (7-18) mg/dl Creatinine (0.6-1.2) mg/dl Est Cr Clr Drug Dosing ml/min Est GFR ( Amer) Est GFR (Non-Af Amer) BUN/Creatinine Ratio (10-20) Glucose (70-99) mg/dl Calcium (8.5-10.1) mg/dl Magnesium 2.3 (1.8-2.4) mg/dl HCG, Qual (Negative) Urine Color [place] Urine Appearance Cloudy A (Clear) Urine pH 6.0 (4.5-7.5) Ur Specific [place] 1.021 (1.000-1.030) Urine Protein 1+ H (Negative) Urine Glucose (UA) Negative (Negative) Urine Ketones Negative (Negative) Urine Blood 3+ H (Negative) Urine Nitrite Negative (Negative) Urine Bilirubin Negative (Negative) Urine Urobilinogen Negative (Negative) Ur Leukocyte Esterase 1+ H (Negative) Urine WBC (Auto) 10-30 H (0-5) /hpf Urine RBC (Auto) >30 H (0-4) /hpf U Hyaline Cast (Auto) 1-5 (0-5) /lpf U Epithel Cells (Auto) >30 H (0-5) /lpf Urine Bacteria (Auto) Negative (Negative) Administered Medications Lactated Ringer's (Lr) 1,000 mls @ 100 mls/hr IV .Q10H NOE Stop: 08/19/20 00:00 Last Admin: 07/19/20 23:21 Dose: 100 mls/hr Documented by: [id number] Montelukast Sodium (Montelukast Sodium 10 Mg Tablet) 10 mg PO HS NOE Stop: 08/18/20 22:04 Last Admin: 07/19/20 23:19 Dose: 10 mg Documented by: [id number] Pantoprazole Sodium (Pantoprazole 40 Mg Tab) 40 mg PO HS NOE Stop: 08/18/20 22:04 Last Admin: 07/19/20 23:19 Dose: 40 mg Documented by: [id number] Discontinued Medications Sodium Chloride (Nss 1000ml) 1,000 mls @ 999 mls/hr IV .Q1H1M ONE Stop: 07/19/20 17:18 Last Infusion: 07/19/20 17:57 Dose: 0 mls/hr Documented by: [id number] Admin: 07/19/20 16:53 Dose: 999 mls/hr Documented by: [id number] Ceftriaxone Sodium (Rocephin) 2,000 mg in 70 mls @ 140 mls/hr IV NOW STA Stop: 07/19/20 18:04 Last Infusion: 07/19/20 18:26 Dose: 0 mls/hr Documented by: [id number] Admin: 07/19/20 17:50 Dose: 140 mls/hr Documented by: [id number] Morphine Sulfate (Morphine Sulfate 4 Mg/Ml 1 Ml Carp\\Vial) 4 mg IV NOW STA Stop: 07/19/20 16:19 Last Admin: 07/19/20 16:52 Dose: 4 mg Documented by: [id number] Morphine Sulfate (Morphine Sulfate 4 Mg/Ml 1 Ml Carp\\Vial) 4 mg IV NOW STA Stop: 07/19/20 20:39 Last Admin: 07/19/20 22:13 Dose: 4 mg Documented by: [id number] Ondansetron HCl (Ondansetron Inj 2 Mg/Ml 2 Ml Vial) 4 mg IV NOW STA Stop: 07/19/20 16:19 Last Admin: 07/19/20 16:53 Dose: 4 mg Documented by: [id number] Prednisone (Prednisone 20 Mg Tab) 20 mg PO NOW STA Stop: 07/19/20 22:33 Last Admin: 07/19/20 23:20 Dose: Not Given Documented by: [id number] Tamsulosin HCl (Tamsulosin Hcl 0.4 Mg Cap) 0.4 mg PO NOW STA Stop: 07/19/20 20:51 Last Admin: 07/19/20 23:19 Dose: 0.4 mg Documented by: [id number] Imaging Data Radiologist's Impression: KUB HISTORY: Follow up study in a patient with reported right ureteral calculus eval right ureteral stone COMPARISON: KUB 10/12/2016 FINDINGS: The bowel gas pattern is non-obstructive. There is no organomegaly. Cholecystectomy. No definite renal or ureteral calculi are identified. Left renal shadow is obscured by bowel gas. There are a few pelvic basin calcifications noted measuring up to 4 mm on the left and 3 mm on the right. No pneumoperitoneum or pneumatosis. No fracture. IMPRESSION: 1. No definite renal or ureteral calculi. 2. Pelvic basin calcifications suggest probable phleboliths. ULTRASOUND KIDNEYS AND BLADDER CLINICAL HISTORY: Right flank pain. COMPARISON STUDY: Abdominal radiographs dated 07/19/2020. Abdominal CT dated 07/08/2020. TECHNIQUE: Real-time, grayscale, and color flow sonography of the kidneys and b ladder is performed. Images are reviewed in the transverse and longitudinal planes. FINDINGS: Kidneys: The kidneys are normal in size and echotexture. The right kidney measures 10.7 x 6.4 x 7.0 cm and the left kidney measures 13.3 x 5.9 x 8.0 cm. There is no left-sided hydronephrosis. A 5 mm obstructing calculus is seen in the right proximal ureter. This causes mild to moderate right hydrourete ronephrosis. A 6 mm shadowing calculus is seen in the lower pole of the right kidney. There is no sonographic evidence of contour deforming renal mass lesion. No perinephric fluid is identified. Bladder: The bladder is normal in appearance. Only the left ureteral jet was seen. IMPRESSION: 1. A 5 mm obstructing calculus in the right proximal ureter causes mild to moderate right hydroureteronephrosis. This is similar to the recent abdominal CT scan. 2. An additional nonobstructing calculus is seen in the right lower pole. 3. There is no left-sided hydronephrosis. 4. Only the left ureteral jet was seen. Discharge Plan Visit Data Chief Complaint: Kidney Stone Stated Complaint: KIDNEY STONE ED Provider: Azeem Bashir Discharge Problem: Renal colic, Failure of outpatient treatment, Leukocytosis, Hydronephrosis Patient Disposition: Admitted As Inpatient Condition: Good Discharge Instructions Interventions: ED Discharge Assessment Last Done: 07/19/20 21:37 Discharge Problem: Leukocytosis Qualifiers: Leukocytosis type: unspecified Qualified Code(s): D72.829 - Elevated white blood cell count, unspecified Hydronephrosis Qualifiers: Hydronephrosis type: with renal calculous obstruction Qualified Code(s): N13.2 - Hydronephrosis with renal and ureteral calculous obstruction
--- NOTE | 2020-07-19 17:10 | XRay Report ---
KUB HISTORY: Follow up study in a patient with reported right ureteral calculus eval right ureteral ston e COMPARISON: KUB 10/12/2016 FINDINGS: The bowel gas pattern is non-obstructive. There is no organomegaly. Cholecystectomy. No de finite renal or ureteral calculi are identified. Left renal shadow is obscured by bowel gas. There ar e a few pelvic basin calcifications noted measuring up to 4 mm on the left and 3 mm on the right. No pneumoperitoneum or pneumatosis. No fracture. IMPRESSION: 1. No definite renal or ureteral calculi. 2. Pelvic basin calcifications suggest probable phleboliths. ACT 112: Negative or not required by law. The above report was generated using voice recognition software. It may contain grammatical, syntax o r spelling errors. Electronically signed by: Fabrizio Harrell M.D. 07/19/2020 5:09 PM
[2020-07-19 17:17] LABS: Hematocrit (blood only) 43.5 % (37-47); Hemoglobin 13.7 g/dL (12.0-16.0); Mean Corpuscular Hemoglobin 27.6 pg (25-34); Mean Corpuscular Hgb Conc 31.5 g/dL (32-36); Mean Corpuscular Volume 87.7 fL (80-100); Mean Platelet Volume 9.4 fL (7.4-10.4); Platelet Count 397 K/uL (130-400); RDW Standard Deviation 47.8 fL (36.4-46.3); Red Blood Count 4.96 M/uL (4.2-5.4); White Blood Count 25.66 K/uL (4.8-10.8)
[2020-07-19 17:19] LABS: Appearance Urine Cloudy (Clear); Bacteria Urine Automated Negative (Negative); Bilirubin Urine Negative (Negative); Blood Urine 3+ (Negative); Epithelial Cell Urine Auto >30 /lpf (0-5); Glucose Urine UA Negative (Negative); Ketones Urine Negative (Negative); Leukocyte Esterase Urine 1+ (Negative); Nitrite Urine Negative (Negative); Protein Urine 1+ (Negative); RBC Urine Automated >30 /hpf (0-4); Specific Gravity Urine 1.021 (1.000-1.030); Urobilinogen Urine Negative (Negative)
[2020-07-19 17:32] LABS: BUN Creatinine Ratio 20.7 (10-20); Calcium 9.2 mg/dl (8.5-10.1); Creatinine Clr Calc Pharmacy 107.1 ml/min; Est GFR (African American) 113.4; Est GFR (Non-African American) 97.8
[2020-07-19] MEDS ORDERED: cefTRIAXone SODIUM 2,000 MG/70 ML BAG IV STA (17:35)
[2020-07-19 17:45] LABS: Basophils # (auto) 0.02 K/uL (0-0.2); Basophils % (auto) 0.1 %; Eosinophils # (auto) 0.15 K/uL (0-0.5); Eosinophils % (auto) 0.6 %; Immature Granulocytes # (auto) 0.62 K/uL (0.00-0.02); Immature Granulocytes % (auto) 2.4 %; Lymphocytes # (auto) 3.17 K/uL (1.2-3.4); Lymphocytes % (auto) 12.4 %; Monocytes # (auto) 1.25 K/uL (0.11-0.59); Monocytes % (auto) 4.9 %; Neutrophils # (auto) 20.45 K/uL (1.4-6.5); Neutrophils % (auto) 79.6 %
[2020-07-19 17:53] LABS: Color Urine Amber
[2020-07-19 18:01] LABS: Pregnancy Test, Serum Negative (Negative)
--- NOTE | 2020-07-19 19:15 | Ultrasound Report ---
ULTRASOUND KIDNEYS AND BLADDER CLINICAL HISTORY: Right flank pain. COMPARISON STUDY: Abdominal radiographs dated 07/19/2020. Abdominal CT dated 07/08/2020. TECHNIQUE: Real-time, grayscale, and color flow sonography of the kidneys and bladder is performed. I mages are reviewed in the transverse and longitudinal planes. FINDINGS: Kidneys: The kidneys are normal in size and echotexture. The right kidney measures 10.7 x 6.4 x 7.0 c m and the left kidney measures 13.3 x 5.9 x 8.0 cm. There is no left-sided hydronephrosis. A 5 mm ob structing calculus is seen in the right proximal ureter. This causes mild to moderate right hydrouret eronephrosis. A 6 mm shadowing calculus is seen in the lower pole of the right kidney. There is no so nographic evidence of contour deforming renal mass lesion. No perinephric fluid is identified. Bladder: The bladder is normal in appearance. Only the left ureteral jet was seen. IMPRESSION: 1. A 5 mm obstructing calculus in the right proximal ureter causes mild to moderate right hydroureter onephrosis. This is similar to the recent abdominal CT scan. 2. An additional nonobstructing calculus is seen in the right lower pole. 3. There is no left-sided hydronephrosis. 4. Only the left ureteral jet was seen. ACT 112: Negative or not required by law. Electronically signed by: Azeem Cerda M.D. 07/19/2020 7:13 PM
--- NOTE | 2020-07-19 20:33 | History & Physical Report ---
Date of Service July 19, 2020 Assessment & Plan (1) Renal colic: Failed outpatient treatment Patient not septic for now. Asthmatic bronchitis, improving on outpatient steroid Rx Ongoing tobacco abuse GMF Flomax trial, strain urine IVF Follow urine cultures, hold off on antibiotics for now Urology consult Re: Renal colic, failed outpatient treatment (ER provider already in touch with Dr. Montoya who recommends possible procedure in a.m.) Nicotine patch as needed DVT prophylaxis with Lovenox subcu Full code Text document was generated using [employer] voice recognition software. It may contain grammatical or spelling errors. Kindly contact undersigned for clarification of any documentation item in question. History of Present Illness Chief Complaint: Kidney stone pain Primary Care Provider: Sadia Naidu MD (Patient also known as Ángela Crocker in [employer] version 5.67) History obtained from patient and records. Medical history significant for urolithiasis, bronchial asthma, ongoing tobacco abuse. Last confinement September 2016 for right ureteral stone status post lithotripsy and basket stone extraction. About 2 weeks ago, patient noted right flank pain going to her groin reminiscent of kidney stone pain without fever without chills. Some hematuria symptoms. Patient seen at [facility] ER. CAT scan showed 7 mm calculus proximal right ureter with mild to moderate right hydronephrosis with few additional nonobstructing bilateral renal calculi. Patient discharged on Macrodantin and tramadol prescriptions. Patient instructed to see urology outpatient. Interim patient started on steroid course for asthmatic bronchitis symptoms. Outpatient Covid 19 test was negative. Worsening right flank discomfort noted the last 2 days. At the ER, patient received IV Ceftriaxone. Medical History as above Surgical History : Partial hysterectomy, cholecystectomy, BTL, tonsillectomy, cystoscopy/stone removal Family History : Urolithiasis, breast cancer, stomach cancer, diabetes Personal/Social history : 1 pack daily, occasional EtOH intake, director nursing service Allergies Allergy/AdvReac Type Severity Reaction Status Date / Time budesonide [From Symbicort] Allergy Intermediate Rash Verified 07/19/20 17:47 formoterol [From Symbicort] Allergy Intermediate Rash Verified 07/19/20 17:47 oxycodone Allergy Intermediate "rash all Verified 07/19/20 17:47 over salmeterol Allergy Intermediate Rash Verified 07/19/20 17:47 [From Advair Diskus] fluticasone Allergy Mild swelling Verified 07/19/20 17:47 and rash Penicillins Allergy Mild RASH Verified 07/19/20 17:47 povidone-iodine Allergy Mild rash Verified 07/19/20 17:47 Home Medications Home Medications Medication Instructions Recorded Confirmed Type albuterol sulfate 2.5 mg INHALATION QID PRN 07/19/20 07/19/20 History albuterol sulfate [ProAir HFA] 2 puff INHALATION Q4H PRN 07/19/20 07/19/20 History ipratropium bromide 2.5 ml INHALATION QID PRN 07/19/20 07/19/20 History montelukast [Singulair] 10 mg PO HS 07/19/20 07/19/20 History pantoprazole [Protonix] 40 mg PO HS 07/19/20 07/19/20 History prednisone 0 mg PO DIRECTED 07/19/20 07/19/20 History Past Med/Surg History Medical History Fibromyalgia Renal colic Social History Smoking Status: Current every day smoker Cigarettes Per Day: 8; Second Hand Exposure: No; Do You Dip or Chew Tobacco: No; Tobacco Cessation Education Requested by Patient: No Hx Alcohol Use: No Hx Substance Use: No Preferred Language: Nigerian Communication Ability: Effective Beliefs That Will Affect Care: None Current Living Situation: Spouse Other Information That Helps Us Care for You: No Feels Safe at Home: Yes Safety Concerns: Feels Safe At This Time Assistive Devices: None Assistive Devices Comment: doesn't wear cpap Review of Systems Review of Systems: As per HPI, all 10 systems reviewed, all other ROS negative Physical Exam Physical Exam: GENERAL: Comfortable, obese, no respiratory distress SKIN: Normal color, warm HEENT: [place] palpebral conjunctivae, no ptosis, dry buccal mucosa NECK : Supple, short neck, no tenderness CHEST : CTA, no tenderness HEART : RRR, no obvious murmurs ABDOMEN: Some distention, right lower quadrant tenderness EXTREMITIES : No LE swelling/tenderness, no other conspicuous deformities noted NEUROLOGIC : Coherent, no facial asymmetry, no other gross focality Results & Data Results & [facility] ([facility] Vital Signs (Past 12 Hours) Vital Signs Temp Pulse Pulse Resp BP BP Pulse Ox 10/21/20 17:59 71 18 127/72 98 07/19/20 16:56 76 16 112/74 96 07/19/20 15:02 36.4 C L 84 20 133/79 97 Laboratory Results Laboratory Results WBC 25.66 K/uL (4.8-10.8) H 07/19/20 16:10 RBC 4.96 M/uL (4.2-5.4) 07/19/20 16:10 Hgb 13.7 g/dL (12.0-16.0) 07/19/20 16:10 Hct 43.5 % (37-47) 07/19/20 16:10 MCV 87.7 fL (80-100) 07/19/20 16:10 MCH 27.6 pg (25-34) 07/19/20 16:10 MCHC 31.5 g/dL (32-36) L 07/19/20 16:10 RDW Std Deviation 47.8 fL (36.4-46.3) H 07/19/20 16:10 RDW Coeff of Satnam 15.0 % (11.5-14.5) H 07/19/20 16:10 Plt Count 397 K/uL (130-400) 07/19/20 16:10 MPV 9.4 fL (7.4-10.4) 07/19/20 16:10 Immature Gran % (Auto) 2.4 % 07/19/20 16:10 Neut % (Auto) 79.6 % 07/19/20 16:10 Lymph % (Auto) 12.4 % 07/19/20 16:10 [place] % (Auto) 4.9 % 07/19/20 16:10 Eos % (Auto) 0.6 % 07/19/20 16:10 Baso % (Auto) 0.1 % 07/19/20 16:10 Neut # (Auto) 20.45 K/uL (1.4-6.5) H 07/19/20 16:10 Lymph # (Auto) 3.17 K/uL (1.2-3.4) 07/19/20 16:10 [place] # (Auto) 1.25 K/uL (0.11-0.59) H 07/19/20 16:10 Eos # (Auto) 0.15 K/uL (0-0.5) 07/19/20 16:10 Baso # (Auto) 0.02 K/uL (0-0.2) 07/19/20 16:10 Immature Gran # (Auto) 0.62 K/uL (0.00-0.02) H 07/19/20 16:10 Sodium 137 mmol/L (136-145) 07/19/20 16:10 Potassium 4.0 mmol/L (3.5-5.1) 07/19/20 16:10 Chloride 105 mmol/L (98-107) 07/19/20 16:10 Carbon Dioxide 27 mmol/L (21-32) 07/19/20 16:10 Anion Gap 5.0 (3-11) 07/19/20 16:10 BUN 15 mg/dl (7-18) 07/19/20 16:10 Creatinine 0.74 mg/dl (0.6-1.2) 07/19/20 16:10 Est Cr Clr Drug Dosing 107.1 ml/min 07/19/20 16:10 Est GFR ( Amer) 113.4 07/19/20 16:10 Est GFR (Non-Af Amer) 97.8 07/19/20 16:10 BUN/Creatinine Ratio 20.7 (10-20) H 07/19/20 16:10 Glucose 98 mg/dl (70-99) 07/19/20 16:10 Calcium 9.2 mg/dl (8.5-10.1) 07/19/20 16:10 HCG, Qual Negative (Negative) 07/19/20 16:10 Urine Color Rosa 07/19/20 16:50 Urine Appearance Cloudy (Clear) A 07/19/20 16:50 Urine pH 6.0 (4.5-7.5) 07/19/20 16:50 Ur Specific [place] 1.021 (1.000-1.030) 07/19/20 16:50 Urine Protein 1+ (Negative) H 07/19/20 16:50 Urine Glucose (UA) Negative (Negative) 07/19/20 16:50 Urine Ketones Negative (Negative) 07/19/20 16:50 Urine Blood 3+ (Negative) H 07/19/20 16:50 Urine Nitrite Negative (Negative) 07/19/20 16:50 Urine Bilirubin Negative (Negative) 07/19/20 16:50 Urine Urobilinogen Negative (Negative) 07/19/20 16:50 Ur Leukocyte Esterase 1+ (Negative) H 07/19/20 16:50 Urine WBC (Auto) 10-30 /hpf (0-5) H 07/19/20 16:50 Urine RBC (Auto) >30 /hpf (0-4) H 07/19/20 16:50 U Hyaline Cast (Auto) 1-5 /lpf (0-5) 07/19/20 16:50 U Epithel Cells (Auto) >30 /lpf (0-5) H 07/19/20 16:50 Urine Bacteria (Auto) Negative (Negative) 07/19/20 16:50 Diagnostic Findings Renal ultrasound: 1. A 5 mm obstructing calculus in the right proximal ureter causes mild to moderate right hydroureteronephrosis. This is similar to the recent abdominal CT scan. 2. An additional nonobstructing calculus is seen in the right lower pole. 3. There is no left-sided hydronephrosis. 4. Only the left ureteral jet was seen. KUB x-ray: 1. No definite renal or ureteral calculi. 2. Pelvic basin calcifications suggest probable phleboliths.
[2020-07-19] MEDS ORDERED: TAMSULOSIN HCL 0.4 MG CAP PO STA (20:50)
[2020-07-19] MEDS ORDERED: IPRATROPIUM BROMIDE NEB SOLN 0.02% 2.5 ML VIAL INH PRN (22:05)
[2020-07-19] MEDS ORDERED: LORazepam 0.5 MG/1 ML VIAL IV PRN (22:05)
[2020-07-19] MEDS ORDERED: LEVALBUTEROL 1.25MG/0.5ML NEB INH PRN (22:05)
[2020-07-19] MEDS ORDERED: XOPENEX/ATROVENT 1.25mg/0.5MG NEB COMBO NEB PRN (22:05)
[2020-07-19] MEDS ORDERED: predniSONE 20 MG TAB PO STA (22:32)
[2020-07-19] MEDS ORDERED: INFLUENZA ADMINISTRATION CHARGE ONE (22:45)
[2020-07-19] MEDS ORDERED: INFLUENZA VIRUS QUAD VACCINE 0.5 ML SYR IM ONE (22:45)
[2020-07-19] MEDS: PANTOprazole 40 MG TAB PO SCH (23:19)
[2020-07-19] MEDS: MONTELUKAST SODIUM 10 MG TABLET PO SCH (23:19)
[2020-07-19] MEDS: LACTATED RINGER'S 1,000 ML IV SCH (23:21)
[2020-07-20] MEDS: HYDROCODONE/ACETAMOPHEN 5/325MG TAB PO PRN ×4 (06:21→23:42)
--- NOTE | 2020-07-20 07:59 | Urology Consultation ---
Date of Consultation July 20, 2020 Assessment & Plan (1) Renal colic: (2) Calculus of proximal right ureter: 45 year-old female patient admitted to the hospital with intractable right abdominal/flank pain secondary to obstructing 7 mm right proximal ureteral calculus with associated hydronephrosis. -Patient afebrile. -Strain all urine. -Keep NPO. Findings reviewed with Dr. Mendoza. Given her intractable right flank/abdominal pain in the context of an obstructing 7 mm proximal right ureteral stone, will proceed with OR for cystoscopy, right retrograde pyelogram and right stent placement, possible ureteroscopy, laser lithotripsy, stone basketing, possible ureteral dilation depending on findings. Risks and benefits to be reviewed with patient by Dr. Mendoza. OR notified. Will cover with IV Ciprofloxacin preoperatively. History of Present Illness Reason for Consultation: Renal colic Attending Physician: Judi Rabago MD History of Present Illness 45 year-old female patient, with past medical history significant for urolithiasis, fibromyalgia, bronchial asthma, ongoing tobacco abuse, admitted to the hospital with intractable right abdominal/flank pain secondary to obstructing 7 mm right proximal ureteral calculus with associated hydronephrosis. Urology consulted due to renal colic. Patient does have known history of kidney stone in 2017, followed with [facility]. Did have URS-LL to treat stone at that time. Chart review: Afebrile Wbc 25.66 Hgb 13.7 Creatinine 0.74 Urinalysis +1 leukocytes, 10-30 wbc, >30 rbc, negative bacteria, negative nitrates. Urine culture pending. Imaging: CT abd/pelvis performed at [facility] reviewed, notable for obstructing 7 mm right proximal ureteral calculus with moderate hydronephrosis. Renal ultrasound - IMPRESSION: 1. A 5 mm obstructing calculus in the right proximal ureter causes mild to moderate right hydroureteronephrosis. This is similar to the recent abdominal CT scan. 2. An additional nonobstructing calculus is seen in the right lower pole. 3. There is no left-sided hydronephrosis. 4. Only the left ureteral jet was seen. KUB - IMPRESSION: 1. No definite renal or ureteral calculi. 2. Pelvic basin calcifications suggest probable phleboliths. Patient reports she has continued to have right lower abdominal and right flank pain since hospital admission. Pain tolerable with IV and PO pain medication. Denies dysuria but does report intermittent hematuria. Does have some urinary frequency/urgency. Feels her urine output has decreased. Denies fevers or chills. Denies nausea or vomiting. She was unable to control pain as outpatient with oral pain medication. She is requesting surgical intervention today if possible. Denies additional urologic concerns today. Allergies Allergy/AdvReac Type Severity Reaction Status Date / Time budesonide [From Symbicort] Allergy Intermediate Rash Verified 07/19/20 17:47 formoterol [From Symbicort] Allergy Intermediate Rash Verified 07/19/20 17:47 oxycodone Allergy Intermediate "rash all Verified 07/19/20 17:47 over salmeterol Allergy Intermediate Rash Verified 07/19/20 17:47 [From Advair Diskus] fluticasone Allergy Mild swelling Verified 07/19/20 17:47 and rash Penicillins Allergy Mild RASH Verified 07/19/20 17:47 povidone-iodine Allergy Mild rash Verified 07/19/20 17:47 Home Medications Home Medications Medication Instructions Recorded Confirmed Type albuterol sulfate 2.5 mg INHALATION QID PRN 07/19/20 07/19/20 History albuterol sulfate [ProAir HFA] 2 puff INHALATION Q4H PRN 07/19/20 07/19/20 History ipratropium bromide 2.5 ml INHALATION QID PRN 07/19/20 07/19/20 History montelukast [Singulair] 10 mg PO HS 07/19/20 07/19/20 History pantoprazole [Protonix] 40 mg PO HS 07/19/20 07/19/20 History prednisone 0 mg PO DIRECTED 07/19/20 07/19/20 History Patient History Medical History Fibromyalgia Renal colic Social History Smoking Status: Current every day smoker Cigarettes Per Day: 8; Second Hand Exposure: No; Do You Dip or Chew Tobacco: No; Tobacco Cessation Education Requested by Patient: No Hx Alcohol Use: No Hx Substance Use: No Preferred Language: Kinyarwanda Communication Ability: Effective Beliefs That Will Affect Care: None Current Living Situation: Spouse Other Information That Helps Us Care for You: No Feels Safe at Home: Yes Safety Concerns: Feels Safe At This Time Assistive Devices: None Assistive Devices Comment: doesn't wear cpap Review of Systems Constitutional: as per Subjective / HPI; no fever and no chills Ear, Nose, Mouth, Throat: no dizziness Respiratory: + cough (Chronic intermittent); no dyspnea Cardiovascular: no chest pain and no edema Gastrointestinal: as per Subjective / HPI; no nausea and no vomiting Genitourinary: as per Subjective / HPI Musculoskeletal: as per Subjective / HPI and + back pain Integumentary: no rash Neurologic: no dizziness Endocrine: + fatigue Physical Exam Constitutional: well developed and well nourished; no acute distress and not ill appearing ENMT: Ears: no external ear abnormality Nose: no external nose abnormality Neck: normal visual inspection and trachea midline Respiratory: normal respiratory effort and able to speak in complete sentences; no respiratory distress and no audible wheezes Cardiovascular: Extremities: no calf tenderness and no edema Gastrointestinal (Abdomen): Inspection/Auscultation: abdomen normal to inspection; abdomen not distended Percussion/Palpation: abdomen soft; abdomen nontender and no guarding Musculoskeletal: Moves all extremities without difficulty. Skin: No visible rashes, lesions, or wounds noted. Neurologic: moves all extremities and awake Psychiatric: Orientation: alert, oriented x 3 and cooperative Affect: euthymic affect Genitourinary: no CVA tenderness Results & Data ([facility]) Vital Signs (Past 12 Hours) Vital Signs Temp Pulse Resp BP BP Pulse Ox 07/20/20 07:40 36.5 C 70 16 113/70 96 07/20/20 07:33 36.5 C 70 16 113/70 96 07/19/20 23:54 36.8 C 78 14 107/68 96 07/19/20 22:00 36.8 C 78 14 96 07/19/20 21:47 68 18 114/59 L 99 07/19/20 21:37 114/59 L 07/19/20 20:00 71 18 127/72 98 PG Care Time/CCT Total # of Minutes Spent Total Time Spent with Patient: Total time spent is greater than 50% in coordinat ion of care (as documented) at patient's floor/unit and/or counseling patient: Coding Level of Care Code 69887 Inpt Consult Level 4 Diagnoses Renal colic N23 Calculus of proximal right ureter N20.1
[2020-07-20 08:28] LABS: Basophils # (auto) 0.01 K/uL (0-0.2); Eosinophils # (auto) 0.13 K/uL (0-0.5); Eosinophils % (auto) 0.6 %; Hematocrit (blood only) 39.8 % (37-47); Hemoglobin 12.7 g/dL (12.0-16.0); Immature Granulocytes # (auto) 0.29 K/uL (0.00-0.02); Immature Granulocytes % (auto) 1.3 %; Lymphocytes # (auto) 3.01 K/uL (1.2-3.4); Lymphocytes % (auto) 13.8 %; Mean Corpuscular Hemoglobin 28.3 pg (25-34); Mean Corpuscular Hgb Conc 31.9 g/dL (32-36); Mean Corpuscular Volume 88.8 fL (80-100); Mean Platelet Volume 9.2 fL (7.4-10.4); Monocytes # (auto) 1.46 K/uL (0.11-0.59); Monocytes % (auto) 6.7 %; Neutrophils # (auto) 16.97 K/uL (1.4-6.5); Neutrophils % (auto) 77.6 %; Platelet Count 326 K/uL (130-400); RDW Coefficient of Variation 15.3 % (11.5-14.5); Red Blood Count 4.48 M/uL (4.2-5.4); White Blood Count 21.87 K/uL (4.8-10.8)
[2020-07-20 08:57] LABS: BUN Creatinine Ratio 22.1 (10-20); Calcium 8.6 mg/dl (8.5-10.1); Creatinine Clr Calc Pharmacy 120.6 ml/min; Est GFR (African American) 123.6; Est GFR (Non-African American) 106.7; Potassium 4.2 mmol/L (3.5-5.1)
[2020-07-20] MEDS ORDERED: ENOXAPARIN INJ 40 MG/0.4 ML SYR SQ SCH (09:00)
[2020-07-20] MEDS: LACTATED RINGER'S 1,000 ML IV SCH ×2 (09:34→23:42)
[2020-07-20] MEDS: predniSONE 20 MG TAB PO SCH ×2 (09:34→21:07)
[2020-07-20] MEDS: MoRPHine SULFATE 4 MG/ML 1 ML CARP\\VIAL IV PRN ×2 (09:43→22:24)
--- NOTE | 2020-07-20 10:31 | XRay Report ---
XR chest 2V PA/lateral HISTORY: Cough. preop COMPARISON: None. FINDINGS: The lungs are clear. Cardiac silhouette is top normal in size. No pleural effusions. No pne umothorax. IMPRESSION: No acute process. ACT 112: Negative or not required by law. Electronically signed by: Ashkan Gasca M.D. 07/20/2020 10:30 AM
--- NOTE | 2020-07-20 11:20 | Electrocardiogram Report ---
Test Reason : Blood Pressure : / mmHG Vent. Rate : 067 BPM Atrial Rate : 067 BPM P-R Int : 140 ms QRS Dur : 076 ms QT Int : 376 ms P-R-T Axes : 055 087 047 degrees QTc Int : 397 ms Normal sinus rhythm Normal ECG When compared with ECG of 28-APR-2016 22:05, QT has shortened Confirmed by Jaden Verdin ([id number]) on 07/20/2020 11:20:24 AM Referred By: REFERRED SELF Confirmed By:Jaden Verdin
[2020-07-20] MEDS ORDERED: CIPROFLOXACIN / D5W 400 MG/200 ML BAG IV SCH (12:00)
[2020-07-20] MEDS: PROMETHAZINE HCL 12.5 MG in SODIUM CHLORIDE 0.9% 50 ML IV PRN (13:30)
--- NOTE | 2020-07-20 15:43 | Hospitalist Progress Note ---
Date of Service July 20, 2020 Assessment & Plan (1) Renal colic: Calculus of proximal right ureter Present on admission with worsening flank pain CT showed CAT scan showed 7 mm calculus proximal right ureter with mild to moderate right hydronephrosis with few additional nonobstructing bilateral renal calculi. Renal u/s showed 5 mm obstructing calculus in the right proximal ureter causes mild to moderate right hydroureteronephrosis. An additional nonobstructing calculus is seen in the right lower pole. Urology on board Plan to proceed with OR for cystoscopy, right retrograde pyelogram and right stent placement, possible ureteroscopy, laser lithotripsy received Rocephin in the ER Continue IV Cipro for now Urine cx collected pending Will keep NPO for now Continue pain control, Flomax and IVF Continue monitor closely Asthmatic bronchitis CXR showed no acute finding Continue prednisone Saturated well on RA Clinically stable Tobacco abuse Counseling on smoking cessation Code Status Full code DVT px on Lovenox, Will put on hold for now Disposition Will discharge once medically stable Admission and Anticipated Discharge Date Admission Date: July 19, 2020 Subjective Pt was seen and examined Lying in bed with no distress Pt said that pain flank improves Denies any chest pain, palpitation, dizziness and SOB Physical Exam Physical Exam: General- No acute distress Head- atraumatic Eyes- PERRL, EOMI, ENT- oropharynx clear Neck- supple, no JVD Lungs- clear to auscultation Heart- regular rhythm; no murmur Abdomen- normal bowel sounds, soft, nontender Extremities- no calf tenderness Neuro- alert, oriented x 3; PERRL, EOMI; no facial palsy; no dysarthria Skin- warm & dry Results & Data Results & Data ([facility]) Vital Signs (Past 12 Hours) Vital Signs Temp Pulse Resp BP Pulse Ox 07/20/20 15:26 36.6 C 68 18 116/78 97 07/20/20 07:40 36.5 C 70 16 113/70 96 07/20/20 07:33 36.5 C 70 16 113/70 96
--- NOTE | 2020-07-20 16:16 | Anesthesiology Consultation ---
Date of Service July 20, 2020 Assessment & Plan (1) Encounter for pre-operative examination: Chart Review Chart Review: Acceptable Risk for Surgery and Patient NOT seen in Pre Admission Testing Consults Requested none ASA ASA3 Proposed Anesthesia Anesthesia Type: MAC Risk / Benefits Reviewed With: PT / POA / Parent / Guardian, Accepts Plan and Informed Consent Obtained History Surgery Operation Date: 07/20/20 15:00 Proposed Procedures p Cystoscopy, Right Retrograde Pyelogram, Right Stent Insertion - Gabo Bowers MD Height/Weight Height: 5 ft 5 in Weight: 91.9 kg Allergies Allergy/AdvReac Type Severity Reaction Status Date / Time budesonide [From Symbicort] Allergy Intermediate Rash Verified 07/19/20 17:47 formoterol [From Symbicort] Allergy Intermediate Rash Verified 07/19/20 17:47 oxycodone Allergy Intermediate "rash all Verified 07/19/20 17:47 over salmeterol Allergy Intermediate Rash Verified 07/19/20 17:47 [From Advair Diskus] fluticasone Allergy Mild swelling Verified 07/19/20 17:47 and rash Penicillins Allergy Mild RASH Verified 07/19/20 17:47 povidone-iodine Allergy Mild rash Verified 07/19/20 17:47 Medications Home Medications Medication Instructions Recorded Confirmed Last Taken albuterol sulfate 2.5 mg INHALATION QID PRN 07/19/20 07/19/20 Unknown albuterol sulfate [ProAir HFA] 2 puff INHALATION Q4H PRN 07/19/20 07/19/20 Unknown ipratropium bromide 2.5 ml INHALATION QID PRN 07/19/20 07/19/20 Unknown montelukast [Singulair] 10 mg PO HS 07/19/20 07/19/20 07/18/20 pantoprazole [Protonix] 40 mg PO HS 07/19/20 07/19/20 07/18/20 prednisone 0 mg PO DIRECTED 07/19/20 07/19/20 07/19/20 2 DOSES TODAY Active Medications Generic Name Dose Route Start Last Admin Trade Name Freq PRN Reason Stop Dose Admin Hydrocodone Bitart/Acetaminophen 1 tab 07/19/20 22:05 07/20/20 13:36 Hydrocodone/Acetamophen 5/325mg Tab PO 08/02/20 22:04 1 tab QID PRN Administration Pain Enoxaparin Sodium 40 mg 07/20/20 09:00 07/20/20 09:34 Enoxaparin Inj 40 Mg/0.4 Ml Syr SQ 08/19/20 08:59 40 mg QAM NOE Administration Promethazine HCl 12.5 mg/ 50.5 mls @ 202 mls/hr 07/19/20 22:05 07/20/20 13:51 Sodium Chloride IV 08/18/20 22:04 Infused Q6H PRN Infusion Nausea And Vomiting Lactated Ringer's 1,000 mls @ 100 mls/hr 07/20/20 00:00 07/20/20 09:34 Lr IV 08/19/20 00:00 100 mls/hr .Q10H NOE Administration Montelukast Sodium 10 mg 07/19/20 22:05 07/19/20 23:19 Montelukast Sodium 10 Mg Tablet PO 08/18/20 22:04 10 mg HS NOE Administration Morphine Sulfate 4 mg 07/19/20 22:05 07/20/20 09:43 Morphine Sulfate 4 Mg/Ml 1 Ml Carp\\Vial IV 08/02/20 22:04 4 mg Q4H PRN Administration Pain Pantoprazole Sodium 40 mg 07/19/20 22:05 07/19/20 23:19 Pantoprazole 40 Mg Tab PO 08/18/20 22:04 40 mg HS NOE Administration Prednisone 20 mg 07/20/20 09:00 07/20/20 09:34 Prednisone 20 Mg Tab PO 07/27/20 08:59 20 mg BID NOE Administration Taper NPO Date Last Intake of Fluids: 07/19/20 Time Last Intake of Fluids: 16:00 Date Last Intake of Solids: 07/19/20 Time Last Intake of Solids: 22:00 Past Medical History Medical History Anxiety Asthma, mild persistent Depression Fibromyalgia GERD (gastroesophageal reflux disease) Renal colic Exercise / Class Metabolic Activity II 4-5 Yardwork/Stairs/Walk up hill Past Surgical History Surgical History H/O hand surgery History of hysterectomy History of tonsillectomy History of tubal ligation Past Anesthesia History No Hx of Anesthesia Complications History of PONV No Hx of PONV Social History Smoking Status: Current every day smoker tobacco type: cigarettes Smoking cigarettes per day: 8 Do You Dip or Chew Tobacco: No Hx Alcohol Use: No Hx Substance Use: No Review of Systems Patient denies active symptoms of GERD. Physical Exam Vital Signs Last Vital Signs Temp 36.6 C 07/20/20 15:26 Pulse 68 07/20/20 15:26 Resp 18 07/20/20 15:26 BP 116/78 07/20/20 15:26 Pulse Ox 97 07/20/20 15:26 Constitutional + obese ENMT Mouth: + edentulous (upper); no TMJ abnormality and oral opening not small Thyromental Distance: > or= 3.5 Finger Breadths Mallampati Class: I Neck normal visual inspection; neck extension not limited Respiratory normal respiratory effort Auscultation: lungs clear to auscultation bilaterally Cardiovascular Rate/Rhythm: regular rate and regular rhythm Heart Sounds: no murmur Neurologic moves all extremities Psychiatric Orientation: alert and oriented x 3 Testing Laboratory Results 07/20/20 08:08 07/20/20 08:08 Urine Color [place] 07/19/20 16:50 Urine Appearance Cloudy (Clear) A 07/19/20 16:50 Urine pH 6.0 (4.5-7.5) 07/19/20 16:50 Ur Specific [place] 1.021 (1.000-1.030) 07/19/20 16:50 Urine Protein 1+ (Negative) H 07/19/20 16:50 Urine Glucose (UA) Negative (Negative) 07/19/20 16:50 Urine Ketones Negative (Negative) 07/19/20 16:50 Urine Nitrite Negative (Negative) 07/19/20 16:50 Ur Leukocyte Esterase 1+ (Negative) H 07/19/20 16:50 Urine WBC (Auto) 10-30 /hpf (0-5) H 07/19/20 16:50 Urine RBC (Auto) >30 /hpf (0-4) H 07/19/20 16:50 U Hyaline Cast (Auto) 1-5 /lpf (0-5) 07/19/20 16:50 U Epithel Cells (Auto) >30 /lpf (0-5) H 07/19/20 16:50 Urine Bacteria (Auto) Negative (Negative) 07/19/20 16:50 07/19/20 16:50 Urine Culture - Preliminary Urine,Clean Catch No growth - Less than 1,000 colonies/mL, Final report to follow.
[2020-07-20] MEDS ORDERED: MIDAZOLAM HCL 1 MG/ML 2ML VIAL ONE (18:49)
[2020-07-20] MEDS ORDERED: PROPOFOL IV EMULSION 10 MG/ML 20 ML VIAL IV ONE ×2 (18:49→19:13)
[2020-07-20] MEDS ORDERED: IOTHALAMATE MEGLUMINE II 17.2% 250 ML VIAL INSTIL ONE (19:24)
--- NOTE | 2020-07-20 19:24 | Post Operative Brief Note ---
PG Immediate Post Op with CF Date of Surgery July 20, 2020 Pre & Post Diagnosis Operation Date: 07/20/20 15:00 Pre-Op Diagnosis: CALCULUS OF PROXIMAL RIGHT URETER Post-Op Diagnosis: CALCULUS OF PROXIMAL RIGHT URETER I identified the patient and participated in the time-out.: Yes Procedure Operation Date: 07/20/20 15:00 Actual Procedures p Cystoscopy, Right Retrograde Pyelogram, Right Stent Insertion(Right) - Gabo Bowers MD Surgeon Gabo Bowers MD Open Shank Coverer none Estimated Blood Loss 2 Findings Consistent with Post-Op Diagnosis
--- NOTE | 2020-07-20 19:27 | Fluoroscopy Report ---
FL retrograde includes kub CLINICAL HISTORY: RETROGRADE AND STENT COMPARISON STUDY: 07/19/2020 FLUOROSCOPY TIME: 28 seconds. NUMBER OF FLUOROSCOPIC IMAGES: 4 FINDINGS: 4 intraprocedural fluoroscopic spot images are provided for interpretation. This demonstrat es retrograde catheterization of the right ureter with placement of a double pigtail right-sided neph roureteral stent. There is no significant hydronephrosis. IMPRESSION: Fluoroscopic spot images during a retrograde study with placement of a right-sided doubl e pigtail nephroureteral stent ACT 112: Negative or not required by law. Electronically signed by: Claudio Andrade M.D. 07/20/2020 7:26 PM
--- NOTE | 2020-07-20 19:41 | Anesthesiology Progress Note ---
Date of Service July 20, 2020 Anesthesia Post Procedure Vital Signs Vital Signs: Temp Pulse Pulse Resp BP BP Pulse Ox 07/20/20 19:30 36.2 C L 68 15 112/70 95 07/20/20 18:40 37.0 C 72 18 131/74 96 07/20/20 15:26 36.6 C 68 18 116/78 97 07/20/20 07:40 36.5 C 70 16 113/70 96 07/20/20 07:33 36.5 C 70 16 113/70 96 07/19/20 23:54 36.8 C 78 14 107/68 96 07/19/20 22:00 36.8 C 78 14 96 07/19/20 21:47 68 18 114/59 L 99 07/19/20 21:37 114/59 L 07/19/20 20:00 71 18 127/72 98 Pain Intensity Right Flank: Pain Intensity: 4 Transfer of Care Handoff Completed per policy Notes Mental Status: alert / awake / arousable and participated in evaluation Nausea / Vomiting: adequately controlled Pain: adequately controlled Airway Patency, RR, SpO2: stable & adequate BP & HR: stable & adequate Hydration State: stable & adequate Anesthetic Complications: no major complications apparent and Pt Satisfied with anesthetic care
[2020-07-20] MEDS ORDERED: ePHEDrine sulfate 50 MG/ML AMP IV PRN (19:42)
[2020-07-20] MEDS ORDERED: fentaNYL citrate 100 MCG/2 ML VIAL IV PRN (19:42)
[2020-07-20] MEDS ORDERED: ONDANSETRON INJ 2 MG/ML 2 ML VIAL IV PRN (19:42)
[2020-07-20] MEDS ORDERED: ATROPINE SULFATE 0.1 MG/ML 10ML SYR IV PRN (19:42)
[2020-07-20] MEDS ORDERED: IPRATROPIUM BROMIDE NEB SOLN 0.02% 2.5 ML VIAL INH PRN (20:22)
[2020-07-20] MEDS ORDERED: ALBUTEROL 0.083% NEBU SOLN 3 ML VIAL INH PRN (20:22)
[2020-07-20] MEDS ORDERED: ALBUTEROL HFA 8 GM INHALER INH PRN (20:26)
[2020-07-20] MEDS: TAMSULOSIN HCL 0.4 MG CAP PO SCH (21:07)
[2020-07-20] MEDS: PANTOprazole 40 MG TAB PO SCH (21:07)
[2020-07-20] MEDS: MONTELUKAST SODIUM 10 MG TABLET PO SCH (21:07)
[2020-07-21] MEDS: HYDROCODONE/ACETAMOPHEN 5/325MG TAB PO PRN ×4 (04:22→23:55)
[2020-07-21] MEDS: PHENAZOPYRIDINE HCL 100 MG TAB PO PRN ×4 (05:50→23:55)
[2020-07-21] MEDS ORDERED: POLYETHYLENE (MIRALAX) 17 GM PACK PO PRN (05:59)
[2020-07-21] MEDS: DOCUSATE SODIUM/SENNA 50/8.6MG TAB PO SCH (06:28)
[2020-07-21] MEDS: PROMETHAZINE HCL 12.5 MG in SODIUM CHLORIDE 0.9% 50 ML IV PRN (06:39)
[2020-07-21] MEDS: MoRPHine SULFATE 4 MG/ML 1 ML CARP\\VIAL IV PRN ×2 (06:40→20:44)
--- NOTE | 2020-07-21 07:56 | Operative Report (OR) ---
DATE OF OPERATION: 07/20/2020 PREOPERATIVE DIAGNOSIS: Proximal right ureteral stone. POSTOPERATIVE DIAGNOSIS: Proximal right ureteral stone. PROCEDURE: Right stent, right retrograde cystoscopy. HISTORY OF PRESENTATION: The patient is a 45-year-old female with proximal stone, ongoing pain and pressure with a white blood cell count of 22,000. She had pyuria and bacteria and here for stent placement in preparation for possible intervention down the road. DESCRIPTION OF THE PROCEDURE: The patient was taken to the cystoscopy suite. She had Venodyne stockings placed. She was given sedation. Cystoscopy was performed. The bladder was normal. No tumors or abnormalities seen. Right retrograde was performed and there was clearly obstruction in the proximal ureter over the stone, it was difficult to see. Once the retrograde was performed, a wire was passed to the proximal ureter and a 4.8, 24 cm stent was passed with a good curl in the renal pelvis and good curl in the bladder. The patient was transferred to the recovery room in stable condition. I attest to the content of the Intraoperative Record and any orders documented therein. Any exception s are noted below.
[2020-07-21] MEDS: predniSONE 20 MG TAB PO SCH ×2 (08:56→20:26)
[2020-07-21] MEDS: LACTATED RINGER'S 1,000 ML IV SCH (09:04)
[2020-07-21 10:01] LABS: Hematocrit (blood only) 40.3 % (37-47); Hemoglobin 12.7 g/dL (12.0-16.0); Mean Corpuscular Hemoglobin 28.2 pg (25-34); Mean Corpuscular Hgb Conc 31.5 g/dL (32-36); Mean Corpuscular Volume 89.6 fL (80-100); Mean Platelet Volume 9.2 fL (7.4-10.4); Platelet Count 298 K/uL (130-400); RDW Coefficient of Variation 15.2 % (11.5-14.5); White Blood Count 19.65 K/uL (4.8-10.8)
[2020-07-21 10:26] LABS: BUN Creatinine Ratio 19.1 (10-20); Calcium 8.1 mg/dl (8.5-10.1); Creatinine Clr Calc Pharmacy 106.1 ml/min; Est GFR (African American) 111.6; Est GFR (Non-African American) 96.3
--- NOTE | 2020-07-21 11:40 | Urology Progress Note ---
Date of Service July 21, 2020 Assessment & Plan (1) Calculus of proximal right ureter: 45yo F who is s/p Cystoscopy, Retrograde Pyelogram, and Right stent placement on 07/20/20 -Patient doing well post procedure -Remains afebrile, WBC is trending down and creatinine is stable -Urine culture is preliminary no growth -KUB today to determine if patient is a candidate for outpatient ESWL procedure -Patient is stable for discharge from perspective -Recommend home with pain control, Tamsulosin, Pyridium prn, and antibiotics pending urine culture result and sensitivities -Will plan for outpatient follow-up with our service in 1-2 weeks to discuss definitive stone treatment -Thank you for allowing us to participate in the acute care of Mrs. French. Please reconsult us with additional questions, concerns or changes in patient status. Admission and Anticipated Discharge Date Admission Date: July 19, 2020 Subjective 45yo F admitted to the hospital with intractable right abdominal/flank pain secondary to obstructing 7 mm right proximal ureteral calculus with associated hydronephrosis. POD#1 s/p Cystoscopy, Retrograde Pyelogram, Right Stent Placement Patient doing well post procedure Reports some stent discomfort, improved with Pyridium Urine is orange, continues to strain all urine Some dysuria as expected Denies any fevers or chills Tolerating PO diet without nausea or vomiting Ambulating independently Chart review: Afebrile WBC 19.65 Cr 0.75 Hgb 12.7 UC&S- preliminary no growth Review of Systems Constitutional: as per Subjective / HPI Gastrointestinal: as per Subjective / HPI Genitourinary: as per Subjective / HPI Musculoskeletal: as per Subjective / HPI Physical Exam Constitutional: well developed and well nourished; no acute distress and not ill appearing Neck: normal visual inspection Respiratory: normal respiratory effort and able to speak in complete sentences Cardiovascular: Extremities: no pedal edema Gastrointestinal (Abdomen): Percussion/Palpation: abdomen soft; abdomen nontender and no guarding Skin: no rashes, warm and dry Neurologic: awake; not confused Psychiatric: Orientation: alert, oriented x 3 and cooperative Results & Data ([facility]) Vital Signs (Past 12 Hours) Vital Signs Temp Pulse Pulse Resp BP Pulse Ox 07/21/20 07:07 36.4 C L 74 16 122/73 96 07/21/20 03:23 36.6 C 75 20 120/70 96 07/20/20 23:20 36.7 C 88 20 107/70 96 07/20/20 22:20 36.5 C 82 18 119/73 97 PG Care Time/CCT Total # of Minutes Spent Total Time Spent with Patient: Total time spent is greater than 50% in coordination of care (as documented) at patient's floor/unit and/or counseling patient: Coding Level of Care Code None Diagnoses Calculus of proximal right ureter N20.1
--- NOTE | 2020-07-21 12:39 | XRay Report ---
KUB HISTORY: Follow up study in a patient with kidney stones Right ureteral stone COMPARISON: KUB 07/19/2020 FINDINGS: The bowel gas pattern is non-obstructive. Moderate fecal retention. There is no organomegal y. A right ureteral stent appears to be in satisfactory positioning. The renal shadows are mostly ob scured by bowel gas.. No definite renal calculi. There is an ill-defined 7 mm radiodensity projecting the right ureteral stent at the level of L4. Probable phleboliths of the pelvis. No pneumoperitoneum or pneumatosis. No fracture. IMPRESSION: 1. Satisfactory positioning of a right ureteral stent. 2. There is a 7 mm ill-defined radiodensity overlying the stent at the level of L4 which may reflect a ureteral calculus. ACT 112: Negative or not required by law. The above report was generated using voice recognition software. It may contain grammatical, syntax o r spelling errors. Electronically signed by: Fabrizio Harrell M.D. 07/21/2020 12:38 PM
--- NOTE | 2020-07-21 17:48 | Hospitalist Progress Note ---
Date of Service July 21, 2020 Assessment & Plan (1) Renal colic: Calculus of proximal right ureter Present on admission with worsening flank pain CT showed CAT scan showed 7 mm calculus proximal right ureter with mild to moderate right hydronephrosis with few additional nonobstructing bilateral renal calculi. Renal u/s showed 5 mm obstructing calculus in the right proximal ureter causes mild to moderate right hydroureteronephrosis. An additional nonobstructing calculus is seen in the right lower pole. Urology on board S/P day #1 Cystoscopy, Retrograde Pyelogram, and Right stent placement on 07/20/20 KUB showed 7 mm ill-defined radiodensity overlying the stent at the level of L4 which may reflect a ureteral calculus. received Rocephin in the ER and Cipro posp-op Urine cx no growth Continue pain control, Flomax and pyridium Clinically stable Follow up with urology for outpatient ESWL procedure Asthmatic bronchitis CXR showed no acute finding Continue prednisone Saturated well on RA Clinically stable Tobacco abuse Counseling on smoking cessation Code Status Full code DVT px on Lovenox, will resume if remains in the hospital Disposition Will discharge home today Admission and Anticipated Discharge Date Admission Date: July 19, 2020 Subjective Pt was seen and examined Sitting in bed with no distress Pt said that her pain improves Denies any chest pain, palpitation, dizziness and SOB Physical Exam Physical Exam: General- No acute distress Head- atraumatic Eyes- PERRL, EOMI, ENT- oropharynx clear Neck- supple, no JVD Lungs- clear to auscultation Heart- regular rhythm; no murmur Abdomen- normal bowel sounds, soft, nontender Extremities- no calf tenderness Neuro- alert, oriented x 3; PERRL, EOMI; no facial palsy; no dysarthria Skin- warm & dry Results & Data Results & Data ([facility]) Vital Signs (Past 12 Hours) Vital Signs Temp Pulse Pulse Resp BP BP Pulse Ox 07/21/20 15:43 36.7 C 74 16 132/79 94 07/21/20 07:07 36.4 C L 74 16 122/73 96
[2020-07-21] MEDS: TAMSULOSIN HCL 0.4 MG CAP PO SCH (20:26)
[2020-07-21] MEDS: PANTOprazole 40 MG TAB PO SCH (20:26)
[2020-07-21] MEDS: MONTELUKAST SODIUM 10 MG TABLET PO SCH (20:26)
[2020-07-21] MEDS ORDERED: ENOXAPARIN INJ 40 MG/0.4 ML SYR SQ SCH (21:30)
[2020-07-22] MEDS ORDERED: diphenhydrAMINE Capsule 25 MG CAP PO PRN (00:41)
[2020-07-22] MEDS: MoRPHine SULFATE 4 MG/ML 1 ML CARP\\VIAL IV PRN ×2 (01:22→11:36)
[2020-07-22] MEDS: predniSONE 20 MG TAB PO SCH (09:34)
[2020-07-22] MEDS: DOCUSATE SODIUM/SENNA 50/8.6MG TAB PO SCH (09:34)
[2020-07-22] MEDS: PHENAZOPYRIDINE HCL 100 MG TAB PO PRN (09:34)
[2020-07-22] MEDS: HYDROCODONE/ACETAMOPHEN 5/325MG TAB PO PRN (09:35)
--- NOTE | 2020-07-22 10:53 | Discharge Summary ---
Date of Service July 22, 2020 Admission HPI Per Admitting Provider (Patient also known as Ángela Crocker in [employer] version 5.67) History obtained from patient and records. Medical history significant for urolithiasis, bronchial asthma, ongoing tobacco abuse. Last confinement September 2016 for right ureteral stone status post lithotripsy and basket stone extraction. About 2 weeks ago, patient noted right flank pain going to her groin reminiscent of kidney stone pain without fever without chills. Some hematuria symptoms. Patient seen at [facility] ER. CAT scan showed 7 mm calculus proximal right ureter with mild to moderate right hydronephrosis with few additional nonobstructing bilateral renal calculi. Patient discharged on Macrodantin and tramadol prescriptions. Patient instructed to see urology outpatient. Interim patient started on steroid course for asthmatic bronchitis symptoms. Outpatient Covid 19 test was negative. Worsening right flank discomfort noted the last 2 days. At the ER, patient received IV Ceftriaxone. 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 Exam Per Admitting Provider GENERAL: Comfortable, obese, no respiratory distress SKIN: Normal color, warm HEENT: [place] palpebral conjunctivae, no ptosis, dry buccal mucosa NECK : Supple, short neck, no tenderness CHEST : CTA, no tenderness HEART : RRR, no obvious murmurs ABDOMEN: Some distention, right lower quadrant tenderness EXTREMITIES : No LE swelling/tenderness, no other conspicuous deformities noted NEUROLOGIC : Coherent, no facial asymmetry, no other gross focality Principal Diagnosis Renal colic Calculus of proximal right ureter Asthmatic bronchitis Tobacco abuse Discharge Exam General- No acute distress Head- atraumatic Eyes- PERRL, EOMI, ENT- oropharynx clear Neck- supple, no JVD Lungs- clear to auscultation Heart- regular rhythm; no murmur Abdomen- normal bowel sounds, soft, nontender Extremities- no calf tenderness Neuro- alert, oriented x 3; PERRL, EOMI; no facial palsy; no dysarthria Skin- warm & dry Discharge Data Allergies Allergy/AdvReac Type Severity Reaction Status Date / Time budesonide [From Symbicort] Allergy Intermediate Rash Verified 07/19/20 17:47 formoterol [From Symbicort] Allergy Intermediate Rash Verified 07/19/20 17:47 oxycodone Allergy Intermediate "rash all Verified 07/19/20 17:47 over salmeterol Allergy Intermediate Rash Verified 07/19/20 17:47 [From Advair Diskus] fluticasone Allergy Mild swelling Verified 07/19/20 17:47 and rash Penicillins Allergy Mild RASH Verified 07/19/20 17:47 povidone-iodine Allergy Mild rash Verified 07/19/20 17:47 Consultations 07/19/20 20:13 ED Decision to Admit Stat 07/19/20 22:05 Consult Urology Routine Procedures Performed Operation Date: 07/20/20 15:00 Actual Procedures p Cystoscopy, Right Retrograde Pyelogram, Right Stent Insertion(Right) - Gabo Bowers MD Ordered Studies 07/19/20 16:19 US renal/blad retro comp Stat 07/20/20 14:45 FL retrograde includes kub Routine KUB HISTORY: Follow up study in a patient with kidney stones Right ureteral stone COMPARISON: KUB 07/19/2020 FINDINGS: The bowel gas pattern is non-obstructive. Moderate fecal retention. There is no organomegaly. A right ureteral stent appears to be in satisfactory positioning. The renal shadows are mostly obscured by bowel gas.. No definite renal calculi. There is an ill-defined 7 mm radiodensity projecting the right ureteral stent at the level of L4. Probable phleboliths of the pelvis. No pne umoperitoneum or pneumatosis. No fracture. IMPRESSION: 1. Satisfactory positioning of a right ureteral stent. 2. There is a 7 mm ill-defined radiodensity overlying the stent at the level of L4 which may reflect a ureteral calculus. ACT 112: Negative or not required by law. The above report was generated using voice recognition software. It may contain grammatical, syntax or spelling errors. Electronically signed by: Fabrizio Harrell M.D. 07/21/2020 12:38 PM Dictated: 07/21/20 1236 Transcribed: 07/21/20 1236 FL retrograde includes kub CLINICAL HISTORY: RETROGRADE AND STENT COMPARISON STUDY: 07/19/2020 FLUOROSCOPY TIME: 28 seconds. NUMBER OF FLUOROSCOPIC IMAGES: 4 FINDINGS: 4 intraprocedural fluoroscopic spot images are provided for interpretation. This demonstrates retrograde catheterization of the right ureter with placement of a double pigtail right-sided nephroureteral stent. There is no significant hydronephrosis. IMPRESSION: Fluoroscopic spot images during a retrograde study with placement of a right-sided double pigtail nephroureteral stent ACT 112: Negative or not required by law. Electronically signed by: Claudio Andrade M.D. 07/20/2020 7:26 PM Dictated: 07/20/201924 Transcribed: 07/20/201924 XR chest 2V PA/lateral HISTORY: Cough. preop COMPARISON: None. FINDINGS: The lungs are clear. Cardiac silhouette is top normal in size. No pleural effusions. No pneumothorax. IMPRESSION: No acute process. ACT 112: Negative or not required by law. Electronically signed by: Ashkan Gasca M.D. 07/20/2020 10:30 AM Dictated: 07/20/201027 Transcribed: 07/20/201027 [place], [place] [phone] Ultrasound Report Patient: ÁNGELA SHRESTHAAdmit Date: 07/19/20 MR#: [id number]: [address] Acct ID:[id number]: Date: [address] Zip: [place] [address] Age: 45Location: ED Sex: FRoom/Bed: Att Phy:Diagnosis: KIDNEY STONE Rayna Phy: Sadia Murillo, MDService Date: 07/19/20 Fam Phy:Interpreting Phy: Azeem Cerda MD Admit Phy: Ordering Phy: Azeem Bashir M.D. cc: ~ ULTRASOUND KIDNEYS AND BLADDER CLINICAL HISTORY: Right flank pain. COMPARISON STUDY: Abdominal radiographs dated 07/19/2020. Abdominal CT dated 07/08/2020. TECHNIQUE: Real-time, grayscale, and color flow sonography of the kidneys and bladder is performed. Images are reviewed in the transverse and longitudinal planes. FINDINGS: Kidneys: The kidneys are normal in size and echotexture. The right kidney measures 10.7 x 6.4 x 7.0 cm and the left kidney measures 13.3 x 5.9 x 8.0 cm. There is no left-sided hydronephrosis. A 5 mm obstructing calculus is seen in the right proximal ureter. This causes mild to moderate right hydroureteronephrosis. A 6 mm shadowing calculus is seen in the lower pole of the right kidney. There is no sonographic evidence of contour deforming renal mass lesion. No perinephric fluid is identified. Bladder: The bladder is normal in appearance. Only the left ureteral jet was seen. IMPRESSION: 1. A 5 mm obstructing calculus in the right proximal ureter causes mild to moderate right hydroureteronephrosis. This is similar to the recent abdominal CT scan. 2. An additional nonobstructing calculus is seen in the right lower pole. 3. There is no left-sided hydronephrosis. 4. Only the left ureteral jet was seen. ACT 112: Negative or not required by law. Electronically signed by: Azeem Cerda M.D. 07/19/2020 7:13 PM Dictated: 07/19/201910 Transcribed: 07/19/201910 KUB HISTORY: Follow up study in a patient with reported right ureteral calculus eval right ureteral stone COMPARISON: KUB 10/12/2016 FINDINGS: The bowel gas pattern is non-obstructive. There is no organomegaly. Cholecystectomy. No definite renal or ureteral calculi are identified. Left renal shadow is obscured by bowel gas. There are a few pelvic basin calcifications noted measuring up to 4 mm on the left and 3 mm on the right. No pneumoperitoneum or pneumatosis. No fracture. IMPRESSION: 1. No definite renal or ureteral calculi. 2. Pelvic basin calcifications suggest probable phleboliths. ACT 112: Negative or not required by law. The above report was generated using voice recognition software. It may contain grammatical, syntax or spelling errors. Electronically signed by: Fabrizio Harrell M.D. 07/19/2020 5:09 PM Dictated: 07/19/201706 Transcribed: 07/19/201706 Hospital Course (1) Renal colic: Calculus of proximal right ureter Present on admission with worsening flank pain CT showed CAT scan showed 7 mm calculus proximal right ureter with mild to moderate right hydronephrosis with few additional nonobstructing bilateral renal calculi. Renal u/s showed 5 mm obstructing calculus in the right proximal ureter causes mild to moderate right hydroureteronephrosis. An additional nonobstructing calculus is seen in the right lower pole. Urology on board S/P day #2 Cystoscopy, Retrograde Pyelogram, and Right stent placement on 07/20/20 KUB showed 7 mm ill-defined radiodensity overlying the stent at the level of L4 which may reflect a ureteral calculus. received Rocephin in the ER and Cipro posp-op Urine cx no growth Continue pain control, Flomax and pyridium Case discussed with urology Dr. Mendoza and ok to discharge home without abx, if develops any urinary symptoms to call the office and urology will treat Clinically stable Follow up with urology for outpatient ESWL procedure Asthmatic bronchitis CXR showed no acute finding Continue prednisone Saturated well on RA Clinically stable Tobacco abuse Counseling on smoking cessation Code Status Full code DVT px on Lovenox, will resume if remains in the hospital Disposition Will discharge home today Total Time Total Time Spent Total Time Spent (In Minutes): 35 minutes Total Time Includes: Examination of the Patient, Discharge Planning, Medication Reconciliation, Communication With Other Providers and Other Discharge Plan Discharge Items Patient Disposition: Home - Self-Care Reason For Visit: RENAL COLIC, FAILED OUTPX Discharge Diagnosis: Renal colic Calculus of proximal right ureter Asthmatic bronchitis Tobacco abuse Condition on Discharge: Good Activity: Resume your previous activity Non-emergency contact: Primary Care Provider and Urologist Call non-emergency contact if: you have any medication questions and your temperature is above 101 Follow-up/Referrals: Sadia Murillo MD [Primary Care Provider] - (Date & Time 07/25/2020 12:00 PM Provider Sadia Naidu MD Department Internal Medicine [facility] ) Diet: Regular Addtl Attending Provider Instructions: Follow up with your primary care provider Dr. Rasmussen on 07/25/20 @ 12PM Follow up with [facility] urology for stent removal in 1-2 weeks (Please call for the appointment) Do not drive or operate any machine after taking narcotic Please hold next dose of narcotic if you develop any drowsiness Please call urology office or seek medical attention if you develop any fever or symptoms of urinary tract infection Pending Studies at Discharge: No Stand-Alone Forms: My bTendo, Smoking Cessation Medications and DC Order Prescriptions: New polyethylene glycol 3350 [Miralax] 17 gram Powder In Packet 17 g PO DAILY PRN (Reason: constipation) Qty: 30 RF: 0 tamsulosin 0.4 mg Capsule 0.4 mg PO HS Qty: 30 RF: 0 phenazopyridine [Pyridium] 100 mg Tablet 100 mg PO TID PRN (Reason: bladder spasms) Qty: 30 RF: 0 hydrocodone-acetaminophen [[place]] 5-325 mg Tablet 1 tab PO Q12H PRN (Reason: severe pain) Qty: 10 RF: 0 fluconazole [Diflucan] 150 mg tablet 150 mg PO Q3D Qty: 2 RF: 0 Continued albuterol sulfate 2.5 mg /3 mL (0.083 %) Solution For Nebulization 2.5 mg INHALATION QID PRN (Reason: Shortness Of Breath) RF: 0 prednisone 20 mg Tablet 0 mg PO DIRECTED RF: 0 pantoprazole [Protonix] 40 mg Tablet,Delayed Release (Dr/Ec) 40 mg PO HS RF: 0 montelukast [Singulair] 10 mg Tablet 10 mg PO HS RF: 0 albuterol sulfate [ProAir HFA] 90 mcg/actuation Hfa Aerosol Inhaler 2 puff INHALATION Q4H PRN (Reason: Shortness Of Breath) RF: 0 ipratropium bromide 0.02 % Solution 2.5 ml INHALATION QID PRN (Reason: Shortness Of Breath) RF: 0 Discharge Orders: Discharge Order (Routine); Ordered 07/22/20 Ordered By: Judi Michel/Other Patient Handouts: Understanding Kidney Stones, ED Urinary Tract Infections in Women Admission Data Admit Date/Time: 07/19/20 20:35 Attending Provider: Judi Rabago Admit Provider: Devyn Groves Primary Care Provider: Sadia Murillo Other Providers: Devyn Groves ; Justin Montoya
== END 2020-07-22 12:07 | disposition home or self-care (01) | DRG 694 ==
LOC: ED 14:55 → 3W 20:35

== ENCOUNTER 2020-07-23 00:31 | Inpatient (IN) ==
[2020-07-23] MEDS ORDERED: KETOROLAC TROMETHAMINE 15 MG/ML VIAL IV STA (00:52)
[2020-07-23] MEDS ORDERED: ONDANSETRON INJ 2 MG/ML 2 ML VIAL IV STA (00:52)
[2020-07-23] MEDS ORDERED: MoRPHine SULFATE 10 MG/ML CARP/VIAL IV PRN (00:52)
[2020-07-23] MEDS ORDERED: SODIUM CHLORIDE 0.9% 1000ML 1,000 ML IV ONE ×2 (00:52→04:56)
--- NOTE | 2020-07-23 00:58 | Emergency Department Note ---
Impression & Plan Renal colic, S/P ureteral stent placement, Failure of outpatient treatment, Leukocytosis ED Provider Note NAME: DEBBIE SHRESTHA AGE: 45 SEX: F : 1975 ARRIVES VIA: Walk-In INFORMANT: [Patient] ED PROVIDER(S): [Azeem Bashir MD] CHIEF COMPLAINT: Flank pain HISTORY OF PRESENT ILLNESS: The patient is a 45-year-old female who was discharged from the hospital yesterd ay. The patient states that she was in the hospital for a proximal right ureteral stone. A stent was placed on the . She was doing well. She was discharged with pain and nausea medication. She is on Flomax and Pyridium, no antibiotic. The patient states that this evening, she had severe discomfort and she took her pain medication. She vomited everything she ate and the pain medication. She tried some tramadol which helped a bit and then in the last several hours, the pain has come back. The pain is on the right side and the right flank. There is pressure in the right pelvis. The pain is a 6 or 7 on a scale of 1-10. The pain is constant. There has been no fever, she has not had vaginal discharge or diarrhea. The patient spoke to urology and was referred to the ED for the possibility of stent malpositioning. REVIEW OF SYSTEMS: See HPI for pertinent positives and negatives. A total of ten systems were reviewed and were otherwise negative. PMHx/PSHx: See Below SOCIAL HISTORY: See Below. PHYSICAL EXAM: GENERAL: Patient is in no acute distress. HEENT: No acute trauma, normocephalic atraumatic, mucous membranes moist, no nasal congestion, no scleral icterus. NECK: No stridor, no adenopathy, no meningismus, trachea is midline. LUNGS: Clear to auscultation bilaterally, no wheeze, no rhonchi, breath sounds equal. HEART: Without murmurs gallops or rubs, regular rate and rhythm. ABDOMEN: Soft, nontender, bowel sounds positive, no hernias, no peritonitis. Back: No flank discomfort to percussion. EXTREMITIES: No cyanosis or edema, full range of motion of all the joints without pain or difficulty, no signs for acute trauma. NEUROLOGIC: Oriented x 3, no acute motor or sensory deficits, no focal weakness. SKIN: No rash, no jaundice, no diaphoresis. DIFFERENTIAL DIAGNOSIS: Stent malposition, hydronephrosis, renal colic, UTI, pyelonephritis, renal failure, electrolyte imbalance, failed outpatient treatment. EMERGENCY DEPARTMENT COURSE/PROCEDURES: MEDICAL DECISION MAKING: There is a significant leukocytosis at 25,000, this could be consistent with infection or her pain. There is no anemia. There is a normal platelet count. No significant electrolyte abnormality or kidney failure. Urinalysis shows possible infection versus findings consistent with the stent placement. KUB shows the stent to be in proper position. Renal ultrasound result is pending. On exam, the patient complained of right sided flank and abdominal pain, she was not febrile or toxic in appearance. Patient received IV saline, 1 L. She was given IV Zofran, IV morphine and IV Toradol. She seems more comfortable but still has pain. Patient presents with persistent right flank and abdominal discomfort despite her right ureteral stent. She was vomiting earlier. Her pain medication was not providing adequate pain control. The patient's care is being assumed by Dr. Crenshaw. Please see her notes for the ultrasound result and the patient's final disposition and plan. Past Med/Surg History Medical History Anxiety Asthma, mild persistent Depression Failure of outpatient treatment Fibromyalgia GERD (gastroesophageal reflux disease) Renal colic Surgical History H/O hand surgery History of hysterectomy History of tonsillectomy History of tubal ligation Social History Smoking Status: Current every day smoker Tobacco Type: Cigarettes Cigarettes Per Day: 8; Second Hand Exposure: No; Do You Dip or Chew Tobacco: No; Hx Alcohol Use: Yes Hx Substance Use: No Preferred Language: Yakut Communication Ability: Effective Scroll Shear Operator Required: No Beliefs That Will Affect Care: None Current Living Situation: Spouse Other Information That Helps Us Care for You: No Feels Safe at Home: Yes Safety Concerns: Feels Safe At This Time Assistive Devices: None Allergies Allergies Allergy/AdvReac Type Severity Reaction Status Date / Time budesonide [From Symbicort] Allergy Intermediate Rash Verified 07/23/20 01:30 formoterol [From Symbicort] Allergy Intermediate Rash Verified 07/23/20 01:30 oxycodone Allergy Intermediate "rash all Verified 07/23/20 01:30 over salmeterol Allergy Intermediate Rash Verified 07/23/20 01:30 [From Advair Diskus] fluticasone Allergy Mild swelling Verified 07/23/20 01:30 and rash Penicillins Allergy Mild RASH Verified 07/23/20 01:30 povidone-iodine Allergy Mild rash Verified 07/23/20 01:30 Home Meds Home Medications Medication Instructions Recorded Confirmed albuterol sulfate 2.5 mg INHALATION QID PRN 07/19/20 07/23/20 albuterol sulfate [ProAir HFA] 2 puff INHALATION Q4H PRN 07/19/20 07/23/20 ipratropium bromide 2.5 ml INHALATION QID PRN 07/19/20 07/23/20 montelukast [Singulair] 10 mg PO HS 07/19/20 07/23/20 pantoprazole [Protonix] 40 mg PO HS 07/19/20 07/23/20 prednisone 0 mg PO DIRECTED 07/19/20 07/23/20 Previous Rx's Medication Instructions Recorded fluconazole [Diflucan] 150 mg PO Q3D #2 tab 07/22/20 hydrocodone-acetaminophen [[place]] 1 tab PO Q12H PRN #10 tab 07/22/20 phenazopyridine [Pyridium] 100 mg PO TID PRN #30 tab 07/22/20 polyethylene glycol 3350 [Miralax] 17 g PO DAILY PRN #30 ea 07/22/20 tamsulosin 0.4 mg PO HS #30 cap 07/22/20 Results & Data (ED) Vital Signs Vital Signs - 24 hr 07/23/20 00:38 07/23/20 02:00 07/23/20 03:14 Temperature 36.8 C Temperature Source Oral Pulse Rate [Finger] 72 73 Pulse Rhythm Regular Pulse Strength Normal Respiratory Rate 18 18 20 Respiratory Effort / Characteristics Non-Labored Spontaneous Non-Labored Spontaneous Respiratory Depth Normal Normal Respiratory Pattern Regular Blood Pressure 138/88 Blood Pressure [Left Arm] 130/75 108/63 Blood Pressure Mean 104 Blood Pressure Mean [Left Arm] 93 78 Blood Pressure Position Sitting Pulse Oximetry 95 94 94 Oxygen Delivery Method Room Air Room Air Room Air Sepsis Recent Fever Within 48 Hours No Sepsis New/Unexplained Change in Mental Status No Sepsis Action Taken by Nursing No Action Required 07/23/20 05:14 07/23/20 06:00 07/23/20 07:12 Temperature Temperature Source Pulse Rate [Finger] 68 74 76 Pulse Rhythm Pulse Strength Respiratory Rate 18 18 20 Respiratory Effort / Characteristics Non-Labored Spontaneous Non-Labored Respiratory Depth Normal Normal Respiratory Pattern Blood Pressure Blood Pressure [Left Arm] 124/70 125/72 123/71 Blood Pressure Mean Blood Pressure Mean [Left Arm] 88 89 88 Blood Pressure Position Pulse Oximetry 95 94 96 Oxygen Delivery Method Room Air Room Air Room Air Sepsis Recent Fever Within 48 Hours Sepsis New/Unexplained Change in Mental Status Sepsis Action Taken by [facility] Medications Current Medication List: was personally reviewed by me Laboratory Data Attestation: I reviewed the patient's lab results. Result diagrams: 07/23/20 05:28 07/23/20 01:02 Lab Results 07/23/20 07/23/20 07/23/20 Range/Units 01:00 01:02 01:02 WBC 25.55 H (4.8-10.8) K/uL RBC 5.04 (4.2-5.4) M/uL Hgb 14.4 (12.0-16.0) g/dL Hct 43.8 (37-47) % MCV 86.9 (80-100) fL MCH 28.6 (25-34) pg MCHC 32.9 (32-36) g/dL RDW Std Deviation 46.5 H (36.4-46.3) fL RDW Coeff of [place] 14.7 H (11.5-14.5) % Plt Count 273 (130-400) K/uL MPV 9.1 (7.4-10.4) fL Neutrophils % (Manual) 83.2 % Lymphocytes % (Manual) 8.8 % Monocytes % (Manual) 6.2 % Eosinophils % (Manual) 1.8 % Neutrophils # (Manual) 21.26 H (1.4-6.5) K/uL Total Absolute Neuts 21.26 H (1.4-6.5) K/uL Lymphocytes # (Manual) 2.25 (1.2-3.4) K/uL Total Abs Lymphocytes 2.25 (1.2-3.4) K/uL Monocytes # (Manual) 1.58 H (0.11-0.59) K/uL Eosinophils # (Manual) 0.46 (0-0.5) K/uL RBC Morphology Unremarkable Sodium 137 (136-145) mmol/L Potassium 4.1 (3.5-5.1) mmol/L Chloride 103 (98-107) mmol/L Carbon Dioxide 29 (21-32) mmol/L Anion Gap 5.0 (3-11) BUN 16 (7-18) mg/dl Creatinine 0.74 (0.6-1.2) mg/dl Est Cr Clr Drug Dosing 107.0 ml/min Est GFR ( Amer) 113.4 Est GFR (Non-Af Amer) 97.8 BUN/Creatinine Ratio 21.6 H (10-20) Glucose 131 H (70-99) mg/dl Calcium 9.1 (8.5-10.1) mg/dl Urine Color Red Urine Appearance Cloudy A (Clear) Urine pH 7.0 (4.5-7.5) Ur Specific [place] 1.015 (1.000-1.030) Urine Protein Trace H (Negative) Urine Glucose (UA) Negative (Negative) Urine Ketones Negative (Negative) Urine Blood 3+ H (Negative) Urine Nitrite Positive A (Negative) Urine Bilirubin Negative (Negative) Urine Urobilinogen Negative (Negative) Ur Leukocyte Esterase 1+ H (Negative) Urine RBC >30 H (0-4) /hpf Urine WBC >30 H (0-5) /hpf Ur Epithelial Cells 20-30 H (0-5) /lpf Urine Bacteria 1+ H (Negative) 07/23/ Range/Units 05:28 WBC 22.23 H (4.8-10.8) K/uL RBC 4.45 (4.2-5.4) M/uL Hgb 12.6 (12.0-16.0) g/dL Hct 39.4 (37-47) % MCV 88.5 (80-100) fL MCH 28.3 (25-34) pg MCHC 32.0 (32-36) g/dL RDW Std Deviation 47.7 H (36.4-46.3) fL RDW Coeff of [place] 14.8 H (11.5-14.5) % Plt Count 255 (130-400) K/uL MPV 9.2 (7.4-10.4) fL Neutrophils % (Manual) % Lymphocytes % (Manual) % Monocytes % (Manual) % Eosinophils % (Manual) % Neutrophils # (Manual) (1.4-6.5) K/uL Total Absolute Neuts (1.4-6.5) K/uL Lymphocytes # (Manual) (1.2-3.4) K/uL Total Abs Lymphocytes (1.2-3.4) K/uL Monocytes # (Manual) (0.11-0.59) K/uL Eosinophils # (Manual) (0-0.5) K/uL RBC Morphology Sodium (136-145) mmol/L Potassium (3.5-5.1) mmol/L Chloride (98-107) mmol/L Carbon Dioxide (21-32) mmol/L Anion Gap (3-11) BUN (7-18) mg/dl Creatinine (0.6-1.2) mg/dl Est Cr Clr Drug Dosing ml/min Est GFR ( Amer) Est GFR (Non-Af Amer) BUN/Creatinine Ratio (10-20) Glucose (70-99) mg/dl Calcium (8.5-10.1) mg/dl Urine Color Urine Appearance (Clear) Urine pH (4.5-7.5) Ur Specific [place] (1.000-1.030) Urine Protein (Negative) Urine Glucose (UA) (Negative) Urine Ketones (Negative) Urine Blood (Negative) Urine Nitrite (Negative) Urine Bilirubin (Negative) Urine Urobilinogen (Negative) Ur Leukocyte Esterase (Negative) Urine RBC (0-4) /hpf Urine WBC (0-5) /hpf Ur Epithelial Cells (0-5) /lpf Urine Bacteria (Negative) Administered Medications Ceftriaxone Sodium 2,000 mg/ (Dextrose) 70 mls @ 100 mls/hr IV Q24H NOE; Protocol Stop: 07/28/20 11:59 Last Infusion: 07/23/20 12:04 Dose: 0 mls/hr Documented by: [id number] Admin: 07/23/20 11:26 Dose: 100 mls/hr Documented by: [id number] Morphine Sulfate (Morphine Sulfate 2 Mg/Ml Carp) 2 mg IV Q4H PRN PRN Reason: Pain Stop: 08/06/20 10:28 Last Admin: 07/23/20 11:26 Dose: 2 mg Documented by: [id number] Discontinued Medications Sodium Chloride (Nss 1000ml) 1,000 mls @ 999 mls/hr IV .Q1H1M ONE Stop: 07/23/20 01:52 Last Infusion: 07/23/20 02:19 Dose: 0 mls/hr Documented by: [id number] Admin: 07/23/20 01:18 Dose: 999 mls/hr Documented by: [id number] Sodium Chloride (Nss 1000ml) 1,000 mls @ 999 mls/hr IV .Q1H1M ONE Stop: 07/23/20 05:56 Last Infusion: 07/23/20 10:45 Dose: 0 mls/hr Documented by: [id number] Infusion: 07/23/20 06:00 Dose: 0 mls/hr Documented by: [id number] Admin: 07/23/20 05:13 Dose: 999 mls/hr Documented by: [id number] Cefepime HCl (Maxipime) 2,000 mg in 20 mls @ 5 mls/min IV NOW STA; Protocol Stop: 07/23/20 05:17 Last Admin: 07/23/20 05:36 Dose: 5 mls/min Documented by: [id number] Ketorolac Tromethamine (Ketorolac Tromethamine 15 Mg/Ml Vial) 15 mg IV NOW STA Stop: 07/23/20 00:53 Last Admin: 07/23/20 01:18 Dose: 15 mg Documented by: [id number] Morphine Sulfate (Morphine Sulfate 10 Mg/Ml Carp/Vial) 6 mg IV Q30M PRN PRN Reason: Pain Stop: 08/06/20 00:51 Last Admin: 07/23/20 01:20 Dose: 6 mg Documented by: [id number] Morphine Sulfate (Morphine Sulfate 4 Mg/Ml 1 Ml Carp\\Vial) 4 mg IV NOW STA Stop: 07/23/20 04:57 Last Admin: 07/23/20 05:13 Dose: 4 mg Documented by: [id number] Ondansetron HCl (Ondansetron Inj 2 Mg/Ml 2 Ml Vial) 4 mg IV NOW STA Stop: 07/23/20 00:53 Last Admin: 07/23/20 01:19 Dose: 4 mg Documented by: [id number] Imaging Data Attestation: I personally reviewed and interpreted this imaging study as follows: My Impression: KUB: The patient's right ureteral stent appears to be in proper position. There was no bowel obstruction. Discharge Plan Visit Data Chief Complaint: Pain (Generalized) Stated Complaint: STENT INPLANT-PAIN,VOMITING ED Provider: Kandace Crenshaw Discharge Problem: Renal colic, S/P ureteral stent placement, Failure of outpatient treatment, Leukocytosis Patient Disposition: Admitted As Inpatient Discharge Instructions Interventions: ED Discharge Assessment Last Done: 07/23/20 09:49 Discharge Problem: Leukocytosis Qualifiers: Leukocytosis type: unspecified Qualified Code(s): D72.829 - Elevated white blood cell count, unspecified
[2020-07-23 01:09] LABS: Hematocrit (blood only) 43.8 % (37-47); Hemoglobin 14.4 g/dL (12.0-16.0); Mean Corpuscular Hemoglobin 28.6 pg (25-34); Mean Corpuscular Hgb Conc 32.9 g/dL (32-36); Mean Corpuscular Volume 86.9 fL (80-100); Mean Platelet Volume 9.1 fL (7.4-10.4); Platelet Count 273 K/uL (130-400); RDW Coefficient of Variation 14.7 % (11.5-14.5); RDW Standard Deviation 46.5 fL (36.4-46.3); Red Blood Count 5.04 M/uL (4.2-5.4); White Blood Count 25.55 K/uL (4.8-10.8)
[2020-07-23 01:24] LABS: Appearance Urine Cloudy (Clear); Bilirubin Urine Negative (Negative); Blood Urine 3+ (Negative); Color Urine Red; Glucose Urine UA Negative (Negative); Ketones Urine Negative (Negative); Leukocyte Esterase Urine 1+ (Negative); Nitrite Urine Positive (Negative); Protein Urine Trace (Negative); Specific Gravity Urine 1.015 (1.000-1.030); Urobilinogen Urine Negative (Negative)
[2020-07-23 01:26] LABS: RBC Urine >30 /hpf (0-4); WBC Urine >30 /hpf (0-5)
[2020-07-23 01:28] LABS: Bacteria Urine 1+ (Negative); Epithelial Cell Urine 20-30 /lpf (0-5)
[2020-07-23 01:32] LABS: ALC (manual) 2.25 K/uL (1.2-3.4); ANC (manual) 21.26 K/uL (1.4-6.5); BUN Creatinine Ratio 21.6 (10-20); Calcium 9.1 mg/dl (8.5-10.1); Eosinophils # (manual) 0.46 K/uL (0-0.5); Eosinophils % (manual) 1.8 %; Est GFR (African American) 113.4; Est GFR (Non-African American) 97.8; Lymphocytes # (manual) 2.25 K/uL (1.2-3.4); Lymphocytes % (manual) 8.8 %; Monocytes # (manual) 1.58 K/uL (0.11-0.59); Monocytes % (manual) 6.2 %; Neutrophils # (manual) 21.26 K/uL (1.4-6.5); Neutrophils % (manual) 83.2 %; Potassium 4.1 mmol/L (3.5-5.1); RBC Morphology Unremarkable
--- NOTE | 2020-07-23 04:40 | Emergency Department Note ---
ED Visit Note Patient signed out to me at change of shift by Dr. Bashir. Patient awaiting ultrasound to evaluate for hydronephrosis at that time. Patient with a recent diagnosis of a kidney stone in recent placement of a ureteral stent by urology here. Patient returns tonight with pain and vomiting. KUB showed the stent in good position, however patient with a white blood cell count of 25. Prior urine culture was negative per his report. 0430: Updated patient on results. Patient's pain is returning. Patient states at the time of her stent no lithotripsy was performed. Patient has received 1 L of IV fluids here. Ultrasound is read by stat read - Ultrasound renal: Comparison is made to prior study dated July 19, 2020. There appears to be a 6 mm calculus in the lower pole of the right kidney. There is currently no evidence of hydronephrosis or perinephric fluid. There is a suggestion of a right ureteral stent in place. The bladder is normal with bilateral ureteral jets visualized. Radiologist: Howie Shaw MD 0511: Patient updated on results. Patient is having increasing pain again. We will continue to hydrate and recheck white blood cell count. 0602: Case discussed with Dr. Mendoza. Patient still symptomatic, could admit to the hospitalist for additional monitoring and management. Discussed this conversation with the patient, she verbalized understanding and was in agreement. 0630: Case discussed with Dr. Ahmadi for additional management. . : Leukocytosis Qualifiers: Leukocytosis type: unspecified Qualified Code(s): D72.829 - Elevated white blood cell count, unspecified
[2020-07-23] MEDS ORDERED: MoRPHine SULFATE 4 MG/ML 1 ML CARP\\VIAL IV STA (04:56)
[2020-07-23] MEDS ORDERED: CEFEPIME 2,000 MG/20 ML VIAL IV STA (05:14)
[2020-07-23 05:49] LABS: Hematocrit (blood only) 39.4 % (37-47); Hemoglobin 12.6 g/dL (12.0-16.0); Mean Corpuscular Hemoglobin 28.3 pg (25-34); Mean Corpuscular Volume 88.5 fL (80-100); Mean Platelet Volume 9.2 fL (7.4-10.4); Platelet Count 255 K/uL (130-400); RDW Coefficient of Variation 14.8 % (11.5-14.5); RDW Standard Deviation 47.7 fL (36.4-46.3); Red Blood Count 4.45 M/uL (4.2-5.4); White Blood Count 22.23 K/uL (4.8-10.8)
--- NOTE | 2020-07-23 09:13 | History & Physical Report ---
Date of Service July 23, 2020 Assessment & Plan (1) Renal colic: (2) S/P ureteral stent placement: Present on admission with severe right flank pain S/P day #1 Cystoscopy, Retrograde Pyelogram, and Right stent placement on 07/20/20 Renal u/s showed right ureteral stent in place. Interval resolution of right hydronephrosis. No ureteral calculus identified although these are often occult by sonography and 2. 6 mm right renal calculus. Received IVF morphine, Toradol and IVF in the ER Urology consult Continue pain control, Flomax and pyridium Clinically improved Elevated WBC Possible related to UTI vs prednisone UA positive for nitrite, Leukocytes and bacteria Received Cefepime in the ER Will start on Rocephin IV urine cx and blood cx collected in the ER, Will follow Abnormal UA Mostly related to UTI UA positive for nitrite, Leukocytes and bacteria Urine cx pending Continue Rocephin IV daily Asthmatic bronchitis Dnies any symptoms Saturated well on RA Clinically stable Tobacco abuse Counseling on smoking cessation Code Status Full code DVT px will do SCD in case pt will require any procedure History of Present Illness Chief Complaint: Post-op stent pain Primary Care Provider: Sadia Naidu MD 45 yo Femal with PMH of Asthma, Depression, anxiety, fibromyalgia, renal colic, s/p ureteral stent placement on 2 days ago present to the ER with severe flank pain. Pt was treated for right kidney calculus and ureteral stent placement and discharge yesterday. Pt said that she was having pain last night and took the norco that caused her to vomit. She said that her flank pain got worst. She said that she took a tramadol that only helped verly little. She said that her pain worsening to the point that she was in tears. She said that she had hematuria. She said that her brought her back to the ER since the pain was so intense. She received IV morphine and Toradol that helped with the pain. Currently pain free. Denies any chest pain, palpitation, dizziness, fever and SOB. Allergies Allergy/AdvReac Type Severity Reaction Status Date / Time budesonide [From Symbicort] Allergy Intermediate Rash Verified 07/23/20 01:30 formoterol [From Symbicort] Allergy Intermediate Rash Verified 07/23/20 01:30 oxycodone Allergy Intermediate "rash all Verified 07/23/20 01:30 over salmeterol Allergy Intermediate Rash Verified 07/23/20 01:30 [From Advair Diskus] fluticasone Allergy Mild swelling Verified 07/23/20 01:30 and rash Penicillins Allergy Mild RASH Verified 07/23/20 01:30 povidone-iodine Allergy Mild rash Verified 07/23/20 01:30 Home Medications Home Medications Medication Instructions Recorded Confirmed Type albuterol sulfate 2.5 mg INHALATION QID PRN 07/19/20 07/23/20 History albuterol sulfate [ProAir HFA] 2 puff INHALATION Q4H PRN 07/19/20 07/23/20 History ipratropium bromide 2.5 ml INHALATION QID PRN 07/19/20 07/23/20 History montelukast [Singulair] 10 mg PO HS 07/19/20 07/23/20 History pantoprazole [Protonix] 40 mg PO HS 07/19/20 07/23/20 History prednisone 0 mg PO DIRECTED 07/19/20 07/23/20 History fluconazole [Diflucan] 150 mg PO Q3D #2 tab 07/22/20 07/23/20 Rx hydrocodone-acetaminophen [[place]] 1 tab PO Q12H PRN #10 tab 07/22/20 07/23/20 Rx phenazopyridine [Pyridium] 100 mg PO TID PRN #30 tab 07/22/20 07/23/20 Rx polyethylene glycol 3350 [Miralax] 17 g PO DAILY PRN #30 ea 07/22/20 07/23/20 Rx tamsulosin 0.4 mg PO HS #30 cap 07/22/20 07/23/20 Rx Past Med/Surg History Medical History Anxiety Asthma, mild persistent Depression Failure of outpatient treatment Fibromyalgia GERD (gastroesophageal reflux disease) Renal colic Surgical History H/O hand surgery History of hysterectomy History of tonsillectomy History of tubal ligation Social History Smoking Status: Current every day smoker Tobacco Type: Cigarettes Cigarettes Per Day: 8; Second Hand Exposure: No; Do You Dip or Chew Tobacco: No; Hx Alcohol Use: Yes Hx Substance Use: No Preferred Language: Spanish Communication Ability: Effective Asset Protection Agent Required: No Beliefs That Will Affect Care: None Current Living Situation: Spouse Other Information That Helps Us Care for You: No Feels Safe at Home: Yes Safety Concerns: Feels Safe At This Time Assistive Devices: None Review of Systems Review of Systems: All systems reviewed & are unremarkable except as noted in HPI & below Physical Exam Physical Exam: General- No acute distress Head- atraumatic Eyes- PERRL, EOMI, ENT- oropharynx clear Neck- supple, no JVD Lungs- clear to auscultation Heart- regular rhythm; no murmur Abdomen- normal bowel sounds, soft, nontender Extremities- no calf tenderness Neuro- alert, oriented x 3; PERRL, EOMI; no facial palsy; no dysarthria Skin- warm & dry Results & Data Results & Data ([facility]) Vital Signs (Past 12 Hours) Vital Signs Temp Pulse Resp BP BP Pulse Ox 07/23/20 07:12 76 20 123/71 96 07/23/20 06:00 74 18 125/72 94 07/23/20 05:14 68 18 124/70 95 07/23/20 03:14 73 20 108/63 94 07/23/20 02:00 72 18 130/75 94 07/23/20 00:38 36.8 C 18 138/88 95 Diagnostic Findings KUB CLINICAL HISTORY: stent COMPARISON STUDY: CT of the abdomen and pelvis July 08, 2020. KUB July 21, 2020. FINDINGS: Right ureteral stent is in place. Note is made of a 5 mm calculus within lower pole of the right kidney. No definite right ureteral calculus is definitely identified although sensitivity is diminished on this examination. There are equivocal fragments within the mid to distal right ureter. A right pelvic opacification reflects a phlebolith. IMPRESSION: 1. Right ureteral stent in place. No definite ureteral calculus identified although sensitivity diminished on this examination. Equivocal calculus fragments within the mid to distal right ureter. 2. 5 mm right renal calculus. ACT 112: Negative or not required by law. Electronically signed by: Brad Lopez M.D. 07/23/2020 9:59 AM Dictated: 07/23/20954 Transcribed: 07/23/20954 RENAL ULTRASOUND CLINICAL HISTORY: poss right hydro, stent COMPARISON STUDY: CT of the abdomen and pelvis July 08, 2020. Renal ultrasound July 19, 2020. KUB July 23, 2020. TECHNIQUE: Sonography of the kidneys and the urinary bladder was performed. FINDINGS: Right ureteral stent is in place. No ureteral calculus is identified although these are often occult by sonography. Right hydronephrosis has resolved since prior renal ultrasound. There is a 6 mm calculus within lower pole of the right kidney. The right kidney measures 11.7 cm in maximal dimension and the left measures 12.9 cm. Both ureteral jets were identified. IMPRESSION: 1. Right ureteral stent in place. Interval resolution of right hydronephrosis. No ureteral calculus identified although these are often occult by sonography. 2. 6 mm right renal calculus. ACT 112: Negative or not required by law. Electronically signed by: Brad Lopez M.D. 07/23/2020 9:43 AM Dictated: 07/23/20 0940 Transcribed: 07/23/20 0940
--- NOTE | 2020-07-23 09:45 | Ultrasound Report ---
RENAL ULTRASOUND CLINICAL HISTORY: poss right hydro, stent COMPARISON STUDY: CT of the abdomen and pelvis July 08, 2020. Renal ultrasound July 19, 2020. KUB July 23, 2020. TECHNIQUE: Sonography of the kidneys and the urinary bladder was performed. FINDINGS: Right ureteral stent is in place. No ureteral calculus is identified although these are oft en occult by sonography. Right hydronephrosis has resolved since prior renal ultrasound. There is a 6 mm calculus within lower pole of the right kidney. The right kidney measures 11.7 cm in maximal dime nsion and the left measures 12.9 cm. Both ureteral jets were identified. IMPRESSION: 1. Right ureteral stent in place. Interval resolution of right hydronephrosis. No ureteral calculus i dentified although these are often occult by sonography. 2. 6 mm right renal calculus. ACT 112: Negative or not required by law. Electronically signed by: Brad Lopez M.D. 07/23/2020 9:43 AM
--- NOTE | 2020-07-23 10:01 | XRay Report ---
KUB CLINICAL HISTORY: stent COMPARISON STUDY: CT of the abdomen and pelvis July 08, 2020. KUB July 21, 2020. FINDINGS: Right ureteral stent is in place. Note is made of a 5 mm calculus within lower pole of the right kidney. No definite right ureteral calculus is definitely identified although sensitivity is di minished on this examination. There are equivocal fragments within the mid to distal right ureter. A right pelvic opacification reflects a phlebolith. IMPRESSION: 1. Right ureteral stent in place. No definite ureteral calculus identified although sensitivity dimin ished on this examination. Equivocal calculus fragments within the mid to distal right ureter. 2. 5 mm right renal calculus. ACT 112: Negative or not required by law. Electronically signed by: Brad Lopez M.D. 07/23/2020 9:59 AM
[2020-07-23] MEDS ORDERED: POLYETHYLENE (MIRALAX) 17 GM PACK PO PRN (10:29)
[2020-07-23] MEDS ORDERED: IPRATROPIUM BROMIDE NEB SOLN 0.02% 2.5 ML VIAL INH PRN (10:29)
[2020-07-23] MEDS ORDERED: ALBUTEROL 0.083% NEBU SOLN 3 ML VIAL INH PRN (10:29)
[2020-07-23] MEDS ORDERED: ALBUTEROL HFA 8 GM INHALER INH PRN (10:58)
[2020-07-23] MEDS: cefTRIAXone SODIUM 2,000 MG in DEXTROSE 5% 50 ML IV SCH (11:26)
[2020-07-23] MEDS: MoRPHine SULFATE 2 MG/ML CARP IV PRN (11:26)
--- NOTE | 2020-07-23 12:12 | Urology Consultation ---
Date of Consultation July 23, 2020 Assessment & Plan (1) Renal colic: (2) S/P ureteral stent placement: Patient returned to hospital after discharge with stent in place. Patient developed severe intractable pain that was more severe than previously with just stone. Patient found to have elevated white count. Was admitted with broad- spectrum antibiotics and supportive care. Discussed options. With patient's increasing white count severe issues pain discomfort and inability to tolerate stent intractable pain discussed different options including treatment of stone. Could consider moving forward with cystoscopy with ureteroscopy and laser lithotripsy. Patient however is improving with supportive care. She is currently resting comfortably. Patient had a full regular diet this morning. We will continue to monitor. Will make n.p.o. at this point. May need to co nsider intervention later today if issues continue worsen or become more bothersome. Monitor for development of fevers and other issues Patient is passing some blood with urination. Per patient's report is dark red. May have had clot or other issue causing obstruction which led to severe pain. Now that she is passing blood may be improving. We will continue to monitor. We will otherwise plan to continue with antibiotics for approximately 1 week and plan for treatment after that point if patient is able to tolerate issues through the day. History of Present Illness Attending Physician: Judi Rabago MD History of Present Illness Consultation for patient with stone, discomfort, obstruction, and ill feelings. Patient had stent placed earlier in the week. Was discharged home doing well however developed severe pain and nausea with vomiting. Patient initially developed sudden onset of pain into flank going down and radiating into groin and back in waves comes and goes. Had been doing better with the stent. While at home pain became more bothersome. Can be severe at times. Discussed and reviewed patient's family history for any history of stone disease. Also, discussed patient's medical surgery history especially related to any history of urinary issues or stone disease. Patient was admitted and is undergoing observation. Was found to have a significantly elevated white count Allergies Allergy/AdvReac Type Severity Reaction Status Date / Time budesonide [From Symbicort] Allergy Intermediate Rash Verified 07/23/20 01:30 formoterol [From Symbicort] Allergy Intermediate Rash Verified 07/23/20 01:30 oxycodone Allergy Intermediate "rash all Verified 07/23/20 01:30 over salmeterol Allergy Intermediate Rash Verified 07/23/20 01:30 [From Advair Diskus] fluticasone Allergy Mild swelling Verified 07/23/20 01:30 and rash Penicillins Allergy Mild RASH Verified 07/23/20 01:30 povidone-iodine Allergy Mild rash Verified 07/23/20 01:30 Home Medications Home Medications Medication Instructions Recorded Confirmed Type albuterol sulfate 2.5 mg INHALATION QID PRN 07/19/20 07/23/20 History albuterol sulfate [ProAir HFA] 2 puff INHALATION Q4H PRN 07/19/20 07/23/20 History ipratropium bromide 2.5 ml INHALATION QID PRN 07/19/20 07/23/20 History montelukast [Singulair] 10 mg PO HS 07/19/20 07/23/20 History pantoprazole [Protonix] 40 mg PO HS 07/19/20 07/23/20 History prednisone 0 mg PO DIRECTED 07/19/20 07/23/20 History fluconazole [Diflucan] 150 mg PO Q3D #2 tab 07/22/20 07/23/20 Rx hydrocodone-acetaminophen [[place]] 1 tab PO Q12H PRN #10 tab 07/22/20 07/23/20 Rx phenazopyridine [Pyridium] 100 mg PO TID PRN #30 tab 07/22/20 07/23/20 Rx polyethylene glycol 3350 [Miralax] 17 g PO DAILY PRN #30 ea 07/22/20 07/23/20 Rx tamsulosin 0.4 mg PO HS #30 cap 07/22/20 07/23/20 Rx Patient History Medical History Anxiety Asthma, mild persistent Depression Failure of outpatient treatment Fibromyalgia GERD (gastroesophageal reflux disease) Renal colic Surgical History H/O hand surgery History of hysterectomy History of tonsillectomy History of tubal ligation Social History Smoking Status: Current every day smoker Tobacco Type: Cigarettes Cigarettes Per Day: 8; Second Hand Exposure: No; Do You Dip or Chew Tobacco: No; Hx Alcohol Use: Yes Hx Substance Use: No Preferred Language: Macedonian Communication Ability: Effective Industrial Cleaner Required: No Beliefs That Will Affect Care: None Current Living Situation: Spouse Other Information That Helps Us Care for You: No Feels Safe at Home: Yes Safety Concerns: Feels Safe At This Time Assistive Devices: None Review of Systems Review of Systems: All systems reviewed & are unremarkable except as noted in HPI & below Physical Exam Physical Exam: General: Alert and oriented x 3 in no acute distress. Patient is well nourished and well kept. HEENT: Normocephalic Atraumatic. Inspection normal. Cranial Nerves 2-12 Grossly intact. Nares are clear. Neck is supple. Normal inspection of face. Normal inspection of neck. Neurologic: No deficits on inspection. Baseline for motor function and sensory. Psychologic: Normal affect. Respiratory: Nonlabored. No use of accessory muscles. No tachypnea or dyspnea. Cardiovascular: No tachycardia Skin: [place] and Dry. No rashes or visible lesions. Extremities: Moving without issues. No motor deficits on inspection Lymphatics: No edema Abdomen: Soft Non-distended. No acites. No rebound or guarding. Results & Data ([facility]) Vital Signs (Past 12 Hours) Vital Signs Temp Pulse Resp BP BP Pulse Ox 07/23/20 10:25 36.6 C 74 16 128/78 96 07/23/20 09:20 80 20 125/63 94 07/23/20 07:12 76 20 123/71 96 07/23/20 06:00 74 18 125/72 94 07/23/20 05:14 68 18 124/70 95 07/23/20 03:14 73 20 108/63 94 07/23/20 02:00 72 18 130/75 94 07/23/20 00:38 36.8 C 18 138/88 95 PG Care Time/CCT Total # of Minutes Spent Total Time Spent with Patient: Total time spent is greater than 50% in coordination of care (as documented) at patient's floor/unit and/or counseling patient: Coding Level of Care Code 05664 Inpt Consult Level 5 Diagnoses Renal colic N23 S/P ureteral stent placement Z96.0
[2020-07-23] MEDS: PHENAZOPYRIDINE HCL 100 MG TAB PO PRN (19:18)
[2020-07-23] MEDS: KETOROLAC TROMETHAMINE 15 MG/ML VIAL IV PRN (19:18)
[2020-07-23] MEDS ORDERED: predniSONE 20 MG TAB PO ONE (21:00)
[2020-07-23] MEDS ORDERED: PANTOprazole 40 MG TAB PO SCH (21:00)
[2020-07-23] MEDS ORDERED: TAMSULOSIN HCL 0.4 MG CAP PO SCH (21:00)
[2020-07-23] MEDS ORDERED: MONTELUKAST SODIUM 10 MG TABLET PO SCH (21:00)
[2020-07-23] MEDS ORDERED: SODIUM CHLORIDE 0.9% 1000ML 1,000 ML IV SCH (22:00)
[2020-07-24] MEDS: KETOROLAC TROMETHAMINE 15 MG/ML VIAL IV PRN (04:07)
[2020-07-24 06:18] LABS: Hematocrit (blood only) 40.5 % (37-47); Hemoglobin 12.8 g/dL (12.0-16.0); Mean Corpuscular Hemoglobin 27.9 pg (25-34); Mean Corpuscular Hgb Conc 31.6 g/dL (32-36); Mean Corpuscular Volume 88.4 fL (80-100); Mean Platelet Volume 9.5 fL (7.4-10.4); Platelet Count 250 K/uL (130-400); RDW Coefficient of Variation 15.1 % (11.5-14.5); RDW Standard Deviation 48.3 fL (36.4-46.3); Red Blood Count 4.58 M/uL (4.2-5.4); White Blood Count 14.99 K/uL (4.8-10.8)
[2020-07-24 06:51] LABS: BUN Creatinine Ratio 21.4 (10-20); Creatinine Clr Calc Pharmacy 111.5 ml/min; Est GFR (African American) 119.2; Est GFR (Non-African American) 102.9; Potassium 4.2 mmol/L (3.5-5.1)
[2020-07-24] MEDS ORDERED: predniSONE 20 MG TAB PO SCH (09:00)
--- NOTE | 2020-07-24 09:22 | Urology Progress Note ---
Date of Service July 24, 2020 Assessment & Plan (1) Renal colic: (2) S/P ureteral stent placement: 45 year-old female patient admitted to the hospital with intractable right flank/lower abdominal pain and suspected UTI status post cystoscopy, right stent placement. - POD #4 cystoscopy, right retrograde pyelogram, right stent placement secondary to obstructing 7 mm right proximal ureteral stone. - Plan of care reviewed with Dr. Mendoza. - She has had some improvement in discomfort since readmission. - Afebrile, white count improving. - Preliminary blood cultures no growth after 24 hours. - Urine microscopy suspicious for UTI, await urine culture results. - Recommend continuing supportive care and antibiotic therapy. - As she is clinically improving, no acute intervention indicated at this time. - Okay to give diet, continue to monitor. - Will likely need a total of 7-10 days antibiotic therapy. - Will arrange outpatient follow-up with urology service to discuss definitive stone management. - Continue to follow while inpatient. Admission and Anticipated Discharge Date Admission Date: July 23, 2020 Subjective Patient status post cystoscopy, right stent placement on 07/20 secondary to obstructing 7 mm right proximal ureteral calculus. Readmitted secondary to flank pain, elevated white count, and urinalysis concerning for UTI. States since admission, she has had some overall improvement in pain. Does continue to have right flank and right lower abdominal discomfort/pressure, mostly after she urinates. Reports hematuria as expected, no clots. Mild dysuria. Denies urinary frequency/urgency. Feels she is emptying her bladder. Denies fevers or chills. Denies nausea or vomiting. Pain at tolerable level with IV Toradol. Currently NPO. Chart review: Afebrile White count 14.99 (previously 22.23) Hgb 12.8 Creatinine 0.71 Urinalysis on admission nitrate positive, +1 leukocytes, >30 rbc, >30 wbc, +1 bacteria. Urine culture pending, currently on IV Ceftriaxone. Preliminary blood culture no growth after 24 hours. Denies additional urologic concerns today. Review of Systems Constitutional: as per Subjective / HPI; no fever and no chills Gastrointestinal: as per Subjective / HPI; no nausea and no vomiting Genitourinary: as per Subjective / HPI Neurologic: no dizziness Physical Exam Constitutional: well developed and well nourished; no acute distress and not ill appearing Respiratory: normal respiratory effort and able to speak in complete sentences; no respiratory distress and no audible wheezes Gastrointestinal (Abdomen): Inspection/Auscultation: abdomen normal to inspection; abdomen not distended Percussion/Palpation: abdomen soft; abdomen nontender and no guarding Psychiatric: Orientation: alert, oriented x 3 and cooperative Affect: euthymic affect Genitourinary: no CVA tenderness Results & Data ([facility]) Vital Signs (Past 12 Hours) Vital Signs Temp Pulse Resp BP Pulse Ox 07/24/20 07:19 36.7 C 72 16 121/73 97 07/23/20 23:35 36.7 C 82 18 115/73 97 PG Care Time/CCT Total # of Minutes Spent Total Time Spent with Patient: Total time spent is greater than 50% in coordination of care (as documented) at patient's floor/unit and/or counseling patient: Coding Level of Care Code 28423 Subseq Hosp Care Lvl 2 Diagnoses Renal colic N23 S/P ureteral stent placement Z96.0
[2020-07-24] MEDS: MoRPHine SULFATE 2 MG/ML CARP IV PRN (11:06)
[2020-07-24] MEDS: cefTRIAXone SODIUM 2,000 MG in DEXTROSE 5% 50 ML IV SCH (12:07)
[2020-07-24] MEDS ORDERED: traMADol HCL 50 MG TABLET PO PRN (13:49)
[2020-07-24] MEDS: PHENAZOPYRIDINE HCL 100 MG TAB PO PRN (15:35)
--- NOTE | 2020-07-24 16:30 | Hospitalist Progress Note ---
Date of Service July 24, 2020 Assessment & Plan (1) Renal colic: (2) S/P ureteral stent placement: Present on admission with severe right flank pain S/P day Cystoscopy, Retrograde Pyelogram, and Right stent placement on 07/20/20 Renal u/s showed right ureteral stent in place. Interval resolution of right hydronephrosis. No ureteral calculus identified although these are often occult by sonography and 2. 6 mm right renal calculus. Received IVF morphine, Toradol and IVF in the ER Urology consult Recommend continuing supportive care and antibiotic therapy. Continue pain control, Flomax and Pyridium Outpatient follow-up with urology service to discuss definitive stone management. Clinically improved significantly Elevated WBC Possible related to UTI vs prednisone UA positive for nitrite, Leukocytes and bacteria Received Cefepime in the ER Urine cx showed no growth ( Maybe urine might be sterilized since pt received abx the day before urine was collected in the ER) On IV Rocehin day# 2, Urology recommended to complete 7 to 10 days course of abx Blood cx no growth Abnormal UA Suspicious for UTI UA positive for nitrite, Leukocytes and bacteria Urine culture no growth (urine might be sterilized since pt received abx the day before urine was collected in the ER) Received Rocephin IV, will transition to Keflex Asthmatic bronchitis Dnies any symptoms Saturated well on RA Clinically stable Tobacco abuse Counseling on smoking cessation Code Status Full code DVT px will do SCD in case pt will require any procedure Disposition Will discharge home today Follow up with urology for stone management and stent removal Admission and Anticipated Discharge Date Admission Date: July 23, 2020 Subjective Pt was seen and examined Sitting in bed with no distress Pt said that she feels much better She said that her pain is tolerable She said that the tramadol helps with the pain No vomiting and tolerated her diet Denies any chest pain, palpitation, dizziness and SOB Physical Exam Physical Exam: General- No acute distress Head- atraumatic Eyes- PERRL, EOMI, ENT- oropharynx clear Neck- supple, no JVD Lungs- clear to auscultation Heart- regular rhythm; no murmur Abdomen- normal bowel sounds, soft, nontender Extremities- no calf tenderness Neuro- alert, oriented x 3; PERRL, EOMI; no facial palsy; no dysarthria Skin- warm & dry Results & Data Results & Data ([facility]) Vital Signs (Past 12 Hours) Vital Signs Temp Pulse Resp BP Pulse Ox 07/24/20 14:58 37.3 C 75 16 120/79 95 07/24/20 07:19 36.7 C 72 16 121/73 97
--- NOTE | 2020-07-25 09:27 | Discharge Summary ---
Date of Service July 24, 2020 Admission HPI Per Admitting Provider 45 yo Femal with PMH of Asthma, Depression, anxiety, fibromyalgia, renal colic, s/p ureteral stent placement on 2 days ago present to the ER with severe flank pain. Pt was treated for right kidney calculus and ureteral stent placement and discharge yesterday. Pt said that she was having pain last night and took the norco that caused her to vomit. She said that her flank pain got worst. She said that she took a tramadol that only helped verly little. She said that her pain worsening to the point that she was in tears. She said that she had hematuria. She said that her brought her back to the ER since the pain was so intense. She received IV morphine and Toradol that helped with the pain. Currently pain free. Denies any chest pain, palpitation, dizziness, fever and SOB. Admission Exam Per Admitting Provider General- No acute distress Head- atraumatic Eyes- PERRL, EOMI, ENT- oropharynx clear Neck- supple, no JVD Lungs- clear to auscultation Heart- regular rhythm; no murmur Abdomen- normal bowel sounds, soft, nontender Extremities- no calf tenderness Neuro- alert, oriented x 3; PERRL, EOMI; no facial palsy; no dysarthria Skin- warm & dry Principal Diagnosis Renal colic: S/P ureteral stent placement: Elevated WBC Abnormal Urine Tobacco abuse Discharge Exam General- No acute distress Head- atraumatic Eyes- PERRL, EOMI, ENT- oropharynx clear Neck- supple, no JVD Lungs- clear to auscultation Heart- regular rhythm; no murmur Abdomen- normal bowel sounds, soft, nontender Extremities- no calf tenderness Neuro- alert, oriented x 3; PERRL, EOMI; no facial palsy; no dysarthria Skin- warm & dry Discharge Data Allergies Allergy/AdvReac Type Severity Reaction Status Date / Time budesonide [From Symbicort] Allergy Intermediate Rash Verified 07/23/20 01:30 formoterol [From Symbicort] Allergy Intermediate Rash Verified 07/23/20 01:30 oxycodone Allergy Intermediate "rash all Verified 07/23/20 01:30 over salmeterol Allergy Intermediate Rash Verified 07/23/20 01:30 [From Advair Diskus] fluticasone Allergy Mild swelling Verified 07/23/20 01:30 and rash Penicillins Allergy Mild RASH Verified 07/23/20 01:30 povidone-iodine Allergy Mild rash Verified 07/23/20 01:30 Consultations 07/23/20 06:33 ED Decision to Admit Stat 07/23/20 10:29 Consult Urology Routine Procedures Performed Operation Date: 07/23/20 19:00 <No data on this case meets the specified criteria> Ordered Studies 07/23/20 00:52 US renal/blad retro comp Urgent RENAL ULTRASOUND CLINICAL HISTORY: poss right hydro, stent COMPARISON STUDY: CT of the abdomen and pelvis July 08, 2020. Renal ultrasound July 19, 2020. KUB July 23, 2020. TECHNIQUE: Sonography of the kidneys and the urinary bladder was performed. FINDINGS: Right ureteral stent is in place. No ureteral calculus is identified although these are often occult by sonography. Right hydronephrosis has resolved since prior renal ultrasound. There is a 6 mm calculus within lower pole of the right kidney. The right kidney measures 11.7 cm in maximal dimension and the left measures 12.9 cm. Both ureteral jets were identified. IMPRESSION: 1. Right ureteral stent in place. Interval resolution of right hydronephrosis. No ureteral calculus identified although these are often occult by sonography. 2. 6 mm right renal calculus. ACT 112: Negative or not required by law. Electronically signed by: Brad Lopez M.D. 07/23/2020 9:43 AM Dictated: 07/23/2040 Transcribed: 07/23/2040 KUB CLINICAL HISTORY: stent COMPARISON STUDY: CT of the abdomen and pelvis July 08, 2020. KUB July 21, 2020. FINDINGS: Right ureteral stent is in place. Note is made of a 5 mm calculus within lower pole of the right kidney. No definite right ureteral calculus is definitely identified although sensitivity is diminished on this examination. There are equivocal fragments within the mid to distal right ureter. A right pelvic opacification reflects a phlebolith. IMPRESSION: 1. Right ureteral stent in place. No definite ureteral calculus identified although sensitivity diminished on this examination. Equivocal calculus fragments within the mid to distal right ureter. 2. 5 mm right renal calculus. ACT 112: Negative or not required by law. Electronically signed by: Brad Lopez M.D. 07/23/2020 9:59 AM Dictated: 07/23/20954 Transcribed: 07/23/20954 Hospital Course (1) Renal colic: (2) S/P ureteral stent placement: Present on admission with severe right flank pain S/P day Cystoscopy, Retrograde Pyelogram, and Right stent placement on 07/20/20 Renal u/s showed right ureteral stent in place. Interval resolution of right hydronephrosis. No ureteral calculus identified although these are often occult by sonography and 2. 6 mm right renal calculus. Received IVF morphine, Toradol and IVF in the ER Urology consult Recommend continuing supportive care and antibiotic therapy. Continue pain control, Flomax and Pyridium Outpatient follow-up with urology service to discuss definitive stone management. Clinically improved significantly Elevated WBC Possible related to UTI vs prednisone UA positive for nitrite, Leukocytes and bacteria Received Cefepime in the ER Urine cx showed no growth ( Maybe urine might be sterilized since pt received abx the day before urine was collected in the ER) On IV Rocehin day# 2, Urology recommended to complete 7 to 10 days course of abx Blood cx no growth Abnormal UA Suspicious for UTI UA positive for nitrite, Leukocytes and bacteria Urine culture no growth (urine might be sterilized since pt received abx the day before urine was collected in the ER) Received Rocephin IV, will transition to Keflex Asthmatic bronchitis Dnies any symptoms Saturated well on RA Clinically stable Tobacco abuse Counseling on smoking cessation Code Status Full code DVT px will do SCD in case pt will require any procedure Disposition Will discharge home today Follow up with urology for stone management and stent removal Total Time Total Time Spent Total Time Spent (In Minutes): 35 minutes Total Time Includes: Examination of the Patient, Discharge Planning, Medication Reconciliation, Communication With Other Providers and Other Discharge Plan Discharge Items Patient Disposition: Home - Self-Care Reason For Visit: RENAL CALCULI PAIN Discharge Diagnosis: Renal colic: S/P ureteral stent placement: Elevated WBC Abnormal Urine Tobacco abuse Activity: Resume your previous activity Non-emergency contact: Primary Care Provider Call non-emergency contact if: you have any medication questions, your symptoms worsen and your temperature is above 101 Follow-up/Referrals: Sadia Murillo MD [Primary Care Provider] - Diet: Regular Addtl Attending Provider Instructions: Follow up with your primary care provider Dr. Rasmussen on 07/25/20 @ 12PM Follow up with [facility] urology for stent removal in 1-2 weeks (Please call for the appointment) Do not drive or operate any machine while taking narcotic Please hold next dose of narcotic if you develop any drowsiness Please call urology office or seek medical attention if you develop any fever or worsening pain Counseling on smoking cessation Complete the course of the antibiotic with Keflex Due to medications interaction do not take the diflucan with the zofran Pending Studies at Discharge: No Stand-Alone Forms: My [facility], Smoking Cessation Medications and DC Order Prescriptions: New tramadol 50 mg Tablet 50 mg PO Q6H PRN (Reason: pain) Qty: 20 RF: 0 cephalexin [Keflex] 500 mg capsule 500 mg PO BID 5 Days Qty: 10 RF: 0 ondansetron HCl [Zofran] 4 mg tablet 4 mg PO Q8H Qty: 15 RF: 0 Continued albuterol sulfate 2.5 mg /3 mL (0.083 %) Solution For Nebulization 2.5 mg INHALATION QID PRN (Reason: Shortness Of Breath) RF: 0 prednisone 20 mg Tablet 0 mg PO DIRECTED RF: 0 pantoprazole [Protonix] 40 mg Tablet,Delayed Release (Dr/Ec) 40 mg PO HS RF: 0 montelukast [Singulair] 10 mg Tablet 10 mg PO HS RF: 0 albuterol sulfate [ProAir HFA] 90 mcg/actuation Hfa Aerosol Inhaler 2 puff INHALATION Q4H PRN (Reason: Shortness Of Breath) RF: 0 ipratropium bromide 0.02 % Solution 2.5 ml INHALATION QID PRN (Reason: Shortness Of Breath) RF: 0 polyethylene glycol 3350 [Miralax] 17 gram Powder In Packet 17 g PO DAILY PRN (Reason: constipation) Qty: 30 RF: 0 tamsulosin 0.4 mg Capsule 0.4 mg PO HS Qty: 30 RF: 0 phenazopyridine [Pyridium] 100 mg Tablet 100 mg PO TID PRN (Reason: bladder spasms) Qty: 30 RF: 0 hydrocodone-acetaminophen [[place]] 5-325 mg Tablet 1 tab PO Q12H PRN (Reason: severe pain) Qty: 10 RF: 0 Discontinued fluconazole [Diflucan] 150 mg tablet 150 mg PO Q3D Qty: 2 RF: 0 Discharge Orders: Discharge Order (Routine); Ordered 07/24/20 Ordered By: Judi Michel/Other Patient Handouts: Having a Ureteral Stent Admission Data Admit Date/Time: 07/23/20 09:12 Attending Provider: Judi Rabago Admit Provider: Judi Rabago Primary Care Provider: Sadia Murillo Other Providers: Devyn Groves ; Gunner Mendoza Other Interventions: Discharge Summary Assessment (RN) Last Done: 07/24/20 17:12
== END 2020-07-24 17:53 | disposition home or self-care (01) | DRG 694 ==
LOC: ED 00:31 → 3N 09:12